=== PATIENT | male | born 1935 | race Caucasian/White ===

== ENCOUNTER 2017-07-02 23:17 | Emergency (ER) | payer MEDICARE ==
[2017-07-02 23:29] VITALS: RESP 18
[2017-07-03] MEDS ORDERED: DIPH,PERTUS(ACELL)TETVAC-LF 0.5 ML VIAL IM ONE (00:03)
--- NOTE | 2017-07-03 00:03 | ED ---
Fall HPI - General Chief Complaint: Fall Stated Complaint: fall Time Seen by Provider: 07/02/17 23:37 Source: patient, EMS Mode of arrival: EMS Limitations: physical limitation (Appears intoxicated) - History of Present Illness Initial Comments: This patient is an 82-year-old man, brought by ambulance to be evaluated after he had a fall. The patient admits to drinking about 10 beers today. He states that he is not sure exactly what happened but he had a falling and striking left side of his head. Patient's neighbor then called the ambulance as well as patient's daughter. Is alert and is denying any injuries other than to his head. He states he has a little bit of headache but he denies pains anywhere else. 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: no Place Fall Occurred: home Loss of Consciousness: unsure Prolonged Down Time?: no Context: alcohol use - Related Data Home Medications Medication Instructions Recorded Confirmed Ascorbic Acid [Vitamin C] 500 mg PO DAILY@1200 04/16/14 12/31/15 Aspirin 325 mg PO DAILY 04/16/14 12/31/15 Cholecalciferol [Vitamin D3] 1,000 unit PO DAILY@1200 04/16/14 12/31/15 Citalopram Hydrobromide [CeleXA] 20 mg PO DAILY 04/16/14 12/31/15 Fenofibrate Nanocrystallized 145 mg PO DAILY 04/16/14 12/31/15 [Tricor] Lisinopril [Zestril] 10 mg PO DAILY 04/16/14 12/31/15 Loratadine [Claritin] 10 mg PO DAILY 04/16/14 12/31/15 Thiamine HCl [Vitamin B-1] 100 mg PO DAILY 04/16/14 12/31/15 Previous Rx's Medication Instructions Recorded Docusate [Colace] 100 mg PO BID #28 capsule 01/02/16 Enoxaparin [Lovenox] 40 mg SQ DAILY 28 Days syringe 01/02/16 HYDROcodone/APAP 5-325MG [Bartley 1 tab PO Q4HR PRN #40 tab 01/02/16 5-325] Budesonide-Formot 160-4.5 Mcg 2 puff INHALATION BID #1 inhaler 01/06/16 [Symbicort 160-4.5 Mcg Inhaler] Ipratropium-Albuterol Nebulize 3 ml INHALATION RT-QID ampul.neb 01/06/16 [Duoneb 0.5 mg-3 mg/3 ml Soln] Metoprolol Tartrate [Lopressor] 12.5 mg PO BID tab 01/06/16 Nicotine 21Mg/24Hr Patch [Habitrol] 1 patch TRANSDERM DAILY patch 01/06/16 Allergies Allergy/AdvReac Type Severity Reaction Status Date / Time No Known Allergies Allergy Verified 12/31/15 16:10 Review of Systems ROS Statement: Those systems with pertinent positive or pertinent negative responses have been documented in the HPI. ROS Other: All systems not noted in ROS Statement are negative. Limitations: ROS unobtainable due to patients medical condition (Appears intoxicated) Eyes: Denies: vision change Respiratory: Denies: cough, dyspnea Cardiovascular: Denies: chest pain Gastrointestinal: Denies: abdominal pain, vomiting Musculoskeletal: Denies: back pain Neurological: Reports: headache. Denies: weakness, numbness Past Medical History Past Medical History: CVA/TIA, Hyperlipidemia, Hypertension History of Any Multi-Drug Resistant Organisms: None Reported Past Surgical History: Hernia Repair, Orthopedic Surgery Additional Past Surgical History / Comment(s): SHOULDER LEFT 25 YEARS AGO Past Anesthesia/Blood Transfusion Reactions: No Reported Reaction Past Psychological History: No Psychological Hx Reported Smoking Status: Current every day smoker Past Alcohol Use History: Daily Past Drug Use History: None Reported - Past Family History Mother Family Medical History: Hypertension General Exam Limitations: no limitations General appearance: alert, appears intoxicated Head exam: Present: normocephalic, other (Left frontal area hematoma with some abrasion overlying. No obvious bony deformity. Mild localized tenderness.) Eye exam: Present: normal appearance, PERRL, EOMI, nystagmus. Absent: scleral icterus, conjunctival injection ENT exam: Present: mucous membranes dry Neck exam: Present: normal inspection, other (Cervical collar). Absent: tenderness Respiratory exam: Present: normal lung sounds bilaterally. Absent: respiratory distress, wheezes, rales, rhonchi, stridor Cardiovascular Exam: Present: regular rate, normal rhythm, normal heart sounds. Absent: systolic murmur, diastolic murmur, rubs, gallop GI/Abdominal exam: Present: soft. Absent: distended, tenderness, guarding, rebound, mass Extremities exam: Present: normal inspection, full ROM, normal capillary refill. Absent: tenderness Back exam: Present: normal inspection. Absent: CVA tenderness (R), CVA tenderness (L) Neurological exam: Present: alert Skin exam: Present: warm, dry, intact, normal color. Absent: rash Course Vital Signs 07/02/17 23:19 Temperature 96.3 F L Pulse Rate 79 Respiratory 18 Rate Blood Pressure 166/74 O2 Sat by Pulse 92 L Oximetry Medical Decision Making - EKG Data -: EKG Interpreted by Tx EKG shows normal: sinus rhythm, axis (Normal), intervals (Normal), QRS complexes (Low-voltage QRS), ST-T waves (Normal) Rate: normal (78 bpm) Disposition Clinical Impression: Fall, Head injury, Alcohol intoxication Disposition: HOME SELF-CARE Condition: Fair Instructions: Fall Prevention for Older Adults (ED), Head Injury (ED), Alcohol Intoxication (ED) Referrals: Contreras Roberts DO [Primary Care Provider] - 1-2 days
--- NOTE | 2017-07-03 00:36 | CT ---
EXAMINATION TYPE: CT brain zamzam berman DATE OF EXAM: 07/03/2017 COMPARISON: NONE HISTORY: Fall CT DLP: 1562.30 mGycm Automated exposure control for dose reduction was used. TECHNIQUE: CT scan of the head and cervical spine are performed without contrast. FINDINGS: There is a large left frontal scalp hematoma that measures up to 1.7 cm in thickness. There is cerebral cortical atrophy. There is no mass effect nor midline shift. There is no sign of in tracranial hemorrhage. There is patchy hypodensity in the periventricular white matter. There is no e vidence of a skull fracture. Cervical vertebra have normal alignment. There is narrowing of disc spaces from C3 to C7 with spurrin g of the endplates. Facet joints are intact. There is hypertrophic multilevel facet arthropathy. The skull base is intact. There is no evidence of a fracture. IMPRESSION: Large left frontal scalp hematoma. Cerebral atrophy and chronic small vessel ischemia. No acute intra cranial abnormality. Spondylotic changes in the cervical spine. 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 No acute frac ture seen. Pulmonary emphysema noted at the lung apices.
[2017-07-03 02:14] VITALS: BP 163/80; PULSE 76; TEMP 97.4
== END 2017-07-03 02:28 | disposition home or self-care (01) ==
LOC: EC 23:17
DX: S00.83XA Contusion of other part of head, initial encounter (principal); F10.129 Alcohol abuse with intoxication, unspecified; E78.5 Hyperlipidemia, unspecified; I10 Essential (primary) hypertension; F17.200 Nicotine dependence, unspecified, uncomplicated; Z23 Encounter for immunization; Z86.73 Personal history of transient ischemic attack (TIA), and cerebral infarction without residual deficits; Z79.82 Long term (current) use of aspirin; Z79.899 Other long term (current) drug therapy; W18.30XA Fall on same level, unspecified, initial encounter; Y92.009 Unspecified place in unspecified non-institutional (private) residence as the place of occurrence of the external cause
CPT/HCPCS: 70450; 72125; 90471; 90715; 93005; 99284

== ENCOUNTER 2017-11-01 12:05 | Inpatient (IN) | payer MEDICARE ==
[2017-11-01] MEDS ORDERED: SODIUM CHLORIDE 0.9% 2,000 ML IV ONE (12:21)
[2017-11-01] MEDS ORDERED: SODIUM CHLORIDE 0.9% 1,000 ML IV STA (12:21)
[2017-11-01] MEDS ORDERED: DIPH,PERTUS(ACELL)TETVAC-LF 0.5 ML VIAL IM ONE (12:21)
--- NOTE | 2017-11-01 12:28 | ED ---
General Adult HPI - General Stated complaint: Fall Time Seen by Provider: 11/01/17 12:05 Source: patient, EMS, RN notes reviewed, old records reviewed Mode of arrival: EMS - History of Present Illness Initial comments: This is a 82-year-old male history of CVA alcoholism who apparently became weak 2 days ago and follow for cannot get up. He was found lying on the floor on his left side. Is brought in by EMS for evaluation. Patient was C-collared he denies nausea vomiting cough or phlegm production. He is found to have multiple pressure sores by paramedics IV was established. He was transported here. - Related Data Home Medications Medication Instructions Recorded Confirmed Ascorbic Acid [Vitamin C] 500 mg PO DAILY@1200 04/16/14 11/01/17 Cholecalciferol [Vitamin D3] 1,000 unit PO DAILY@1200 04/16/14 11/01/17 Citalopram Hydrobromide [CeleXA] 30 mg PO DAILY 04/16/14 11/01/17 Fenofibrate Nanocrystallized 145 mg PO DAILY 04/16/14 11/01/17 [Tricor] Lisinopril [Zestril] 10 mg PO DAILY 04/16/14 11/01/17 Thiamine HCl [Vitamin B-1] 100 mg PO DAILY 04/16/14 11/01/17 Aspirin EC [Ecotrin Low Dose] 81 mg PO DAILY 11/01/17 11/01/17 Allergies Allergy/AdvReac Type Severity Reaction Status Date / Time No Known Allergies Allergy Verified 12/31/15 16:10 Review of Systems ROS Statement: Those systems with pertinent positive or pertinent negative responses have been documented in the HPI. ROS Other: All systems not noted in ROS Statement are negative. Past Medical History Past Medical History: CVA/TIA, Hyperlipidemia, Hypertension History of Any Multi-Drug Resistant Organisms: None Reported Past Surgical History: Hernia Repair, Orthopedic Surgery Additional Past Surgical History / Comment(s): SHOULDER LEFT 25 YEARS AGO Past Anesthesia/Blood Transfusion Reactions: No Reported Reaction Past Psychological History: No Psychological Hx Reported Smoking Status: Current every day smoker Past Alcohol Use History: Daily Past Drug Use History: None Reported - Past Family History Mother Family Medical History: Hypertension General Exam - General Exam Comments Initial Comments: This is a well-developed sec appearing male who is awake alert but lethargic. He does have a cervical collar on. He seems a have a [place] Coma Scale of 15 Limitations: physical limitation General appearance: alert, lethargic Head exam: Present: normocephalic, other (Pressure sores seen to the left cheek and facial area with left periorbital edema) Eye exam: Present: PERRL, EOMI ENT exam: Present: mucous membranes dry Neck exam: Present: normal inspection, other (Cervical collar in place no overt tenderness palpation of the spinous processes.) Respiratory exam: Present: decreased breath sounds Cardiovascular Exam: Present: normal rhythm, tachycardia, normal heart sounds. Absent: systolic murmur, diastolic murmur, rubs, gallop, clicks GI/Abdominal exam: Present: soft. Absent: tenderness Rectal exam: Present: deferred Extremities exam: Present: full ROM, normal capillary refill Back exam: Present: normal inspection Neurological exam: Present: alert, CN II-XII intact Psychiatric exam: Present: flat affect Skin exam: Present: warm, dry, other (Multiple pressure sores noted to the left face left shoulder left anterior chest and lower chest. Left dorsal wrist and forearm left knee and left anterior lateral leg with some small amount seen on the right knee. Some eschar formation is noted.) Course Vital Signs 11/01/17 11/01/17 11/01/17 12:05 13:00 14:00 Temperature 97.1 F L Pulse Rate 105 H 105 H 95 Respiratory 18 18 18 Rate Blood Pressure 140/76 136/76 138/75 O2 Sat by Pulse 100 98 98 Oximetry 11/01/17 14:32 Temperature Pulse Rate 97 Respiratory 18 Rate Blood Pressure 128/82 O2 Sat by Pulse 98 Oximetry - Reevaluation(s) Reevaluation #1: 11/01/17 15:49 Patient continues rest comfortably I did discuss findings with him and his family member. EKG Findings - EKG Results: EKG: interpreted by [facility], sinus rhythm (Sinus rhythm rate 99. Interval 136 QRS 90 QT since QTC 374/479 low-voltage poor R-wave progression) Medical Decision Making - Medical Decision Making I did discuss findings with the patient family members as well as with Dr. Jaquez. Patient is a patient Dr. Roberts. Patient will be admitted IV hydration and inpatient evaluation. Patient has a known history of smoking and alcohol abuse he will be placed on the protocol. - Lab Data Result diagrams: 11/01/17 13:40 11/01/17 13:40 Lab Results 11/01/17 11/01/17 11/01/17 Range/Units 13:40 13:40 13:40 WBC (3.8-10.6) k/uL RBC (4.30-5.90) m/uL Hgb (13.0-17.5) gm/dL Hct (39.0-53.0) % MCV (80.0-100.0) fL MCH (25.0-35.0) pg MCHC (31.0-37.0) g/dL RDW (11.5-15.5) % Plt Count (150-450) k/uL Neutrophils % % Lymphocytes % % Monocytes % % Eosinophils % % Basophils % % Neutrophils # (1.3-7.7) k/uL Lymphocytes # (1.0-4.8) k/uL Monocytes # (0-1.0) k/uL Eosinophils # (0-0.7) k/uL Basophils # (0-0.2) k/uL Sodium 142 (137-145) mmol/L Potassium 4.3 (3.5-5.1) mmol/L Chloride 111 H (98-107) mmol/L Carbon Dioxide 23 (22-30) mmol/L Anion Gap 8 mmol/L BUN 50 H (9-20) mg/dL Creatinine 1.75 H (0.66-1.25) mg/dL Est GFR (CKD-EPI)AfAm 41 (>60 ml/min/1.73 sqM) Est GFR (CKD-EPI)NonAf 36 (>60 ml/min/1.73 sqM) Glucose 133 H (74-99) mg/dL POC Glucose (mg/dL) (75-99) mg/dL POC Glu Nematology Teacher ID Plasma Lactic Acid [place] 2.0 (0.7-2.0) mmol/L Calcium 9.8 (8.4-10.2) mg/dL Magnesium 2.4 H (1.6-2.3) mg/dL Total Bilirubin 1.4 H (0.2-1.3) mg/dL AST 98 H (17-59) U/L ALT 51 (21-72) U/L Alkaline Phosphatase 71 (38-126) U/L Ammonia 23 (<30) umol/L Total Creatine Kinase 1323 H (55-170) U/L CK-MB (CK-2) 7.6 H* (0.0-2.4) ng/mL CK-MB (CK-2) Rel Index 0.6 Troponin I 0.141 H* (0.000-0.034) ng/mL Total Protein 6.5 (6.3-8.2) g/dL Albumin 3.8 (3.5-5.0) g/dL Lipase 37 (23-300) U/L Urine Color Urine Appearance (Clear) Urine pH (5.0-8.0) Ur Specific [place] (1.001-1.035) Urine Protein (Negative) Urine Glucose (UA) (Negative) Urine Ketones (Negative) Urine Blood (Negative) Urine Nitrite (Negative) Urine Bilirubin (Negative) Urine Urobilinogen (<2.0) mg/dL Ur Leukocyte Esterase (Negative) Urine RBC (0-5) /hpf Urine WBC (0-5) /hpf Ur Squamous Epith Cells (0-4) /hpf Hyaline Casts (0-2) /lpf Urine Mucus (None) /hpf Serum Alcohol <10 mg/dL 11/01/17 11/01/17 11/01/17 Range/Units 13:40 14:59 15:10 WBC 12.5 H (3.8-10.6) k/uL RBC 5.37 (4.30-5.90) m/uL Hgb 16.3 (13.0-17.5) gm/dL Hct 50.2 (39.0-53.0) % MCV 93.5 (80.0-100.0) fL MCH 30.3 (25.0-35.0) pg MCHC 32.4 (31.0-37.0) g/dL RDW 13.6 (11.5-15.5) % Plt Count 401 (150-450) k/uL Neutrophils % 82 % Lymphocytes % 7 % Monocytes % 9 % Eosinophils % 0 % Basophils % 0 % Neutrophils # 10.2 H (1.3-7.7) k/uL Lymphocytes # 0.9 L (1.0-4.8) k/uL Monocytes # 1.1 H (0-1.0) k/uL Eosinophils # 0.0 (0-0.7) k/uL Basophils # 0.0 (0-0.2) k/uL Sodium (137-145) mmol/L Potassium (3.5-5.1) mmol/L Chloride (98-107) mmol/L Carbon Dioxide (22-30) mmol/L Anion Gap mmol/L BUN (9-20) mg/dL Creatinine (0.66-1.25) mg/dL Est GFR (CKD-EPI)AfAm (>60 ml/min/1.73 sqM) Est GFR (CKD-EPI)NonAf (>60 ml/min/1.73 sqM) Glucose (74-99) mg/dL POC Glucose (mg/dL) 135 H (75-99) mg/dL POC Glu Nematology Teacher ID [place] Plasma Lactic Acid [place] (0.7-2.0) mmol/L Calcium (8.4-10.2) mg/dL Magnesium (1.6-2.3) mg/dL Total Bilirubin (0.2-1.3) mg/dL AST (17-59) U/L ALT (21-72) U/L Alkaline Phosphatase (38-126) U/L Ammonia (<30) umol/L Total Creatine Kinase (55-170) U/L CK-MB (CK-2) (0.0-2.4) ng/mL CK-MB (CK-2) Rel Index Troponin I (0.000-0.034) ng/mL Total Protein (6.3-8.2) g/dL Albumin (3.5-5.0) g/dL Lipase (23-300) U/L Urine Color [place] Urine Appearance Cloudy (Clear) Urine pH 5.5 (5.0-8.0) Ur Specific [place] 1.020 (1.001-1.035) Urine Protein 1+ H (Negative) Urine Glucose (UA) Negative (Negative) Urine Ketones Negative (Negative) Urine Blood Negative (Negative) Urine Nitrite Negative (Negative) Urine Bilirubin 1+ H (Negative) Urine Urobilinogen 2.0 (<2.0) mg/dL Ur Leukocyte Esterase Negative (Negative) Urine RBC <1 (0-5) /hpf Urine WBC 2 (0-5) /hpf Ur Squamous Epith Cells 1 (0-4) /hpf Hyaline Casts 35 H (0-2) /lpf Urine Mucus Moderate H (None) /hpf Serum Alcohol mg/dL - Radiology Data Radiology results: report reviewed (I did review the imaging and report no acute findings are seen.), image reviewed Critical Care Time Critical Care Time: Yes Critical Care Time: 34 minutes of critical care time which includes initial presentation monitoring the EMS run and discussed with paramedics labs x-rays. Multiple re-evaluations of the patient. Discussion with the family discuss with the main physician documentation above and admission orders Disposition Clinical Impression: Fall, History of ETOH abuse, Rhabdomyolysis, Renal insufficiency, Dehydration, Failure to thrive, Smoking, Elevated troponin Disposition: ADMITTED IP TO THIS HOSP Condition: Serious Referrals: Contreras Roberts DO [Primary Care Provider] - 1-2 days
[2017-11-01 14:14] LABS: Basophils % (A) 0 %; Eosinophils % (A) 0 %; HCT 50.2 % (39.0-53.0); HGB 16.3 gm/dL (13.0-17.5); Lymphocytes # (A) 0.9 k/uL (1.0-4.8); Lymphocytes % (A) 7 %; MCH 30.3 pg (25.0-35.0); MCHC 32.4 g/dL (31.0-37.0); MCV 93.5 fL (80.0-100.0); Mean Platelet Volume 7.4; Monocytes # (A) 1.1 k/uL (0-1.0); Monocytes % (A) 9 %; Neutrophils # (A) 10.2 k/uL (1.3-7.7); Neutrophils % (A) 82 %; Platelet Count 401 k/uL (150-450); RBC 5.37 m/uL (4.30-5.90); RDW 13.6 % (11.5-15.5); WBC 12.5 k/uL (3.8-10.6)
--- NOTE | 2017-11-01 14:16 | CT ---
EXAMINATION TYPE: CT brain cspine wo con DATE OF EXAM: 11/01/2017 COMPARISON: CT brain and cervical spine July 02, 2017. HISTORY: Pt fell on Monday found today on the floor /abrasions to lt cheek area. Neck pain. CT DLP: 1429.3 mGycm. Automated Exposure Control for Dose Reduction was Utilized. TECHNIQUE: CT scan of the head and cervical spine are performed without contrast. FINDINGS: There is no acute intracranial hemorrhage or midline shift identified. There is ventricul ar and sulcal prominence consistent with diffuse cerebral atrophy. There is focal and confluent areas of T2 hyperintensity seen throughout the deep and periventricular white matter bilaterally. There is minimal residual left frontal scalp hematoma or scar axial image 41. There is new small right pariet al acute scalp hematoma axial image 45. The calvarium is intact. The globes are intact and the visual ized sinuses are clear. Cervical spine is visualized in its entirety from C1 through upper thoracic levels and demonstrates s table and somewhat straightened alignment without evidence of acute fracture or dislocation. Stable n onunited fracture of C7 spinous process sagittal image 36 noted. Prevertebral soft tissue appears wit hin normal limits. The C1-C2 articulation is within normal limits on the coronal images. Vertebral body heights are maintained. Moderate multilevel disc space narrowing C3-C4 through C6-C7 l evels is redemonstrated. Posterior spurring effaces anterior thecal sac at C6-C7 level similar prior. Review of axial images shows multilevel uncovertebral facet degenerative changes contributing to mul tilevel neural foraminal narrowing most prominent left C3-C4 level similar to prior. There is motion artifact degradation is seen. There is moderate to severe calcified plaque at bilateral carotid bulbs . There is at least moderate underlying emphysematous change with moderate biapical pleural/parenchym al scarring redemonstrated. IMPRESSION: 1. There is no acute fracture or dislocation evident in the cervical spine. No significant change fro m prior CT. 2. No acute intracranial hemorrhage or midline shift is seen currently. Background moderate diffuse c erebral atrophy and advanced chronic small vessel ischemic change redemonstrated. New small right acu te parietal scalp hematoma noted.
[2017-11-01 14:22] LABS: ALT 51 U/L (21-72); AST 98 U/L (17-59); Albumin 3.8 g/dL (3.5-5.0); Alcohol <10 mg/dL; Alkaline Phosphatase 71 U/L (38-126); Anion Gap 8 mmol/L; Blood Urea Nitrogen 50 mg/dL (9-20); Calcium 9.8 mg/dL (8.4-10.2); Carbon Dioxide 23 mmol/L (22-30); Chloride 111 mmol/L (98-107); Glucose 133 mg/dL (74-99); Lipase 37 U/L (23-300); Magnesium 2.4 mg/dL (1.6-2.3); Potassium 4.3 mmol/L (3.5-5.1); Sodium 142 mmol/L (137-145); Total Bilirubin 1.4 mg/dL (0.2-1.3); Total Protein 6.5 g/dL (6.3-8.2)
[2017-11-01 14:44] LABS: Creatine Kinase MB 7.6 ng/mL (0.0-2.4)
[2017-11-01 14:45] LABS: Troponin I 0.141 ng/mL (0.000-0.034)
--- NOTE | 2017-11-01 15:07 | XR ---
EXAMINATION TYPE: XR chest 1V portable DATE OF EXAM: 11/01/2017 COMPARISON: Prior chest x-ray 01/05/2016 HISTORY: Pain, weakness and fall, trauma TECHNIQUE: Single frontal view of the chest is obtained. FINDINGS: Posttraumatic changes are stable, postop change noted to the left humerus, old left clavic ular fracture, old right-sided rib fractures at the seventh and eighth ribs, likely ninth and 10th ri bs again noted, possibly left eighth and ninth ribs show prior fracture. There are overlying cardiac leads. No evident pneumothorax or pleural effusion. Cardiac mediastinal silhouette, pulmonary vascula rity and ruba are stable. IMPRESSION: Evidence of remote trauma. No acute abnormality.
[2017-11-01 15:14] LABS: Glucose,Whole Blood 135 mg/dL (75-99)
[2017-11-01 15:36] LABS: Appearance,Urine Cloudy (Clear); Bilirubin,Urine 1+ (Negative); Blood,Urine Negative (Negative); Color,Urine Orange; Glucose,Urine (UA) Negative (Negative); Hyaline Casts,Urine 35 /lpf (0-2); Ketones,Urine Negative (Negative); Leukocyte Esterase,Urine Negative (Negative); Mucus,Urine Moderate /hpf; Nitrite,Urine Negative (Negative); PH, Urine 5.5 (5.0-8.0); Protein,Urine 1+ (Negative); RBC,Urine <1 /hpf (0-5); Squamous Epithelial Cell,Urine 1 /hpf (0-4); WBC,Urine 2 /hpf (0-5)
[2017-11-01] MEDS ORDERED: ONDANSETRON 4 MG/2 ML VIAL IVP PRN (15:53)
[2017-11-01] MEDS ORDERED: NALOXONE 0.4 MG/ML 1 ML VIAL IV PRN (15:53)
--- NOTE | 2017-11-01 15:53 | ED ---
Medical Decision Making - Lab Data Result diagrams: 11/01/17 13:40 11/01/17 13:40 Lab Results 11/01/17 11/01/17 11/01/17 Range/Units 13:40 13:40 13:40 WBC (3.8-10.6) k/uL RBC (4.30-5.90) m/uL Hgb (13.0-17.5) gm/dL Hct (39.0-53.0) % MCV (80.0-100.0) fL MCH (25.0-35.0) pg MCHC (31.0-37.0) g/dL RDW (11.5-15.5) % Plt Count (150-450) k/uL Neutrophils % % Lymphocytes % % Monocytes % % Eosinophils % % Basophils % % Neutrophils # (1.3-7.7) k/uL Lymphocytes # (1.0-4.8) k/uL Monocytes # (0-1.0) k/uL Eosinophils # (0-0.7) k/uL Basophils # (0-0.2) k/uL Sodium 142 (137-145) mmol/L Potassium 4.3 (3.5-5.1) mmol/L Chloride 111 H (98-107) mmol/L Carbon Dioxide 23 (22-30) mmol/L Anion Gap 8 mmol/L BUN 50 H (9-20) mg/dL Creatinine 1.75 H (0.66-1.25) mg/dL Est GFR (CKD-EPI)AfAm 41 (>60 ml/min/1.73 sqM) Est GFR (CKD-EPI)NonAf 36 (>60 ml/min/1.73 sqM) Glucose 133 H (74-99) mg/dL POC Glucose (mg/dL) (75-99) mg/dL POC Glu Ukrainian Folk Arts Instructor ID Plasma Lactic Acid [place] 2.0 (0.7-2.0) mmol/L Calcium 9.8 (8.4-10.2) mg/dL Magnesium 2.4 H (1.6-2.3) mg/dL Total Bilirubin 1.4 H (0.2-1.3) mg/dL AST 98 H (17-59) U/L ALT 51 (21-72) U/L Alkaline Phosphatase 71 (38-126) U/L Ammonia 23 (<30) umol/L Total Creatine Kinase 1323 H (55-170) U/L CK-MB (CK-2) 7.6 H* (0.0-2.4) ng/mL CK-MB (CK-2) Rel Index 0.6 Troponin I 0.141 H* (0.000-0.034) ng/mL Total Protein 6.5 (6.3-8.2) g/dL Albumin 3.8 (3.5-5.0) g/dL Lipase 37 (23-300) U/L Urine Color Urine Appearance (Clear) Urine pH (5.0-8.0) Ur Specific [place] (1.001-1.035) Urine Protein (Negative) Urine Glucose (UA) (Negative) Urine Ketones (Negative) Urine Blood (Negative) Urine Nitrite (Negative) Urine Bilirubin (Negative) Urine Urobilinogen (<2.0) mg/dL Ur Leukocyte Esterase (Negative) Urine RBC (0-5) /hpf Urine WBC (0-5) /hpf Ur Squamous Epith Cells (0-4) /hpf Hyaline Casts (0-2) /lpf Urine Mucus (None) /hpf Serum Alcohol <10 mg/dL 11/01/17 11/01/17 11/01/17 Range/Units 13:40 14:59 15:10 WBC 12.5 H (3.8-10.6) k/uL RBC 5.37 (4.30-5.90) m/uL Hgb 16.3 (13.0-17.5) gm/dL Hct 50.2 (39.0-53.0) % MCV 93.5 (80.0-100.0) fL MCH 30.3 (25.0-35.0) pg MCHC 32.4 (31.0-37.0) g/dL RDW 13.6 (11.5-15.5) % Plt Count 401 (150-450) k/uL Neutrophils % 82 % Lymphocytes % 7 % Monocytes % 9 % Eosinophils % 0 % Basophils % 0 % Neutrophils # 10.2 H (1.3-7.7) k/uL Lymphocytes # 0.9 L (1.0-4.8) k/uL Monocytes # 1.1 H (0-1.0) k/uL Eosinophils # 0.0 (0-0.7) k/uL Basophils # 0.0 (0-0.2) k/uL Sodium (137-145) mmol/L Potassium (3.5-5.1) mmol/L Chloride (98-107) mmol/L Carbon Dioxide (22-30) mmol/L Anion Gap mmol/L BUN (9-20) mg/dL Creatinine (0.66-1.25) mg/dL Est GFR (CKD-EPI)AfAm (>60 ml/min/1.73 sqM) Est GFR (CKD-EPI)NonAf (>60 ml/min/1.73 sqM) Glucose (74-99) mg/dL POC Glucose (mg/dL) 135 H (75-99) mg/dL POC Glu Ukrainian Folk [employer] Instructor ID [place] Plasma Lactic Acid [place] (0.7-2.0) mmol/L Calcium (8.4-10.2) mg/dL Magnesium (1.6-2.3) mg/dL Total Bilirubin (0.2-1.3) mg/dL AST (17-59) U/L ALT (21-72) U/L Alkaline Phosphatase (38-126) U/L Ammonia (<30) umol/L Total Creatine Kinase (55-170) U/L CK-MB (CK-2) (0.0-2.4) ng/mL CK-MB (CK-2) Rel Index Troponin I (0.000-0.034) ng/mL Total Protein (6.3-8.2) g/dL Albumin (3.5-5.0) g/dL Lipase (23-300) U/L Urine Color [place] Urine Appearance Cloudy (Clear) Urine pH 5.5 (5.0-8.0) Ur Specific [place] 1.020 (1.001-1.035) Urine Protein 1+ H (Negative) Urine Glucose (UA) Negative (Negative) Urine Ketones Negative (Negative) Urine Blood Negative (Negative) Urine Nitrite Negative (Negative) Urine Bilirubin 1+ H (Negative) Urine Urobilinogen 2.0 (<2.0) mg/dL Ur Leukocyte Esterase Negative (Negative) Urine RBC <1 (0-5) /hpf Urine WBC 2 (0-5) /hpf Ur Squamous Epith Cells 1 (0-4) /hpf Hyaline Casts 35 H (0-2) /lpf Urine Mucus Moderate H (None) /hpf Serum Alcohol mg/dL Disposition Clinical Impression: Fall, History of ETOH abuse, Rhabdomyolysis, Renal insufficiency, Dehydration, Failure to thrive, Smoking, Elevated troponin, Pressure sore Disposition: ADMITTED IP TO THIS HOSP Condition: Serious Referrals: Contreras Roberts DO [Primary Care Provider] - 1-2 days
[2017-11-01] MEDS ORDERED: LORazepam 2 MG/ML INJ IV PRN ×3 (15:58)
[2017-11-01] MEDS ORDERED: THIAMINE 100 MG/ML 2 ML VIAL IM STA (15:58)
[2017-11-01] MEDS: SODIUM CHLORIDE 0.9% 1,000 ML IV SCH (17:31)
[2017-11-01 19:28] LABS: Creatine Kinase MB 6.4 ng/mL (0.0-2.4)
[2017-11-01 19:29] LABS: Troponin I 0.113 ng/mL (0.000-0.034)
[2017-11-01] MEDS: HEPARIN SODIUM,PORCINE 5,000 UNIT/ML 1 ML VIAL SQ SCH (21:15)
[2017-11-02 02:40] LABS: Troponin I 0.089 ng/mL (0.000-0.034)
[2017-11-02] MEDS: SODIUM CHLORIDE 0.9% 1,000 ML IV SCH ×3 (06:35→11:17)
[2017-11-02] MEDS ORDERED: LISINOPRIL 10 MG TAB PO SCH (09:00)
[2017-11-02] MEDS ORDERED: PANTOPRAZOLE 40 MG/10 ML VIAL IV SCH (09:00)
[2017-11-02] MEDS: FENOFIBRATE 160 MG TAB PO SCH (09:17)
[2017-11-02] MEDS: ASPIRIN 81 MG PO SCH (09:17)
[2017-11-02] MEDS: CITALOPRAM HYDROBROMIDE 10 MG TAB PO SCH (09:17)
[2017-11-02] MEDS: HEPARIN SODIUM,PORCINE 5,000 UNIT/ML 1 ML VIAL SQ SCH ×2 (09:18→20:22)
--- NOTE | 2017-11-02 10:38 | P.CONS ---
History of Present Illness - Reason for Consult Consult date: 11/02/17 Decubitus ulcers - History of Present Illness This is an 82-year-old male patient who currently lives alone. He apparently fell on Monday and was laying on the floor until yesterday. He states that he was feeling dizzy and fell. He drank 3 beers that day but according to his daughter he states he drinks up to a 12 pack a day and has been doing this for many years. Patient states that he was laying on his left side and his left hand and arm were underneath him and he was unable to move it out. Patient was transported by EMS to [facility] emergency center for evaluation. His ammonia level was 23, blood sugar in the 130s total bilirubin 1.4, AST 90, applying phosphatase and ALT within normal limits, CK was 1323. BUN 15 creatinine 1.75 white count was at 12. Troponin 0.141, 0.113 , 0.089. Alcohol level was less than 10. Urinalysis was orange with 1+ bilirubin. Chest x-ray shows no acute abnormality but multiple old fractures. CAT scan of the head and cervical spine showed no acute fracture or dislocation of the cervical spine. No acute intracranial hemorrhage or midline shift. Moderate diffuse cerebral atrophy and advanced chronic small vessel ischemic change. New right parietal scalp hematoma. Patient has been afebrile since admission. He is not on antibiotics. His tetanus status was updated in the emergency center. Patient presents with multiple abrasions and wounds to his left hoahaoism and cheek, left hand and wrist dorsal and palmar surfaces, multiple areas on his left chest and abdomen as well as left lower extremity. According to the patient's daughter patient has frequent falls although he will deny at. I discussed discharge planning with the patient and he is open to going to [facility] because he was there about 2 years ago after a hip fracture. Daughter is DURABLE POWER OF BREAKFAST HOST and family are hoping that they can make arrangements so he does not return home. He has received 3 L of IV fluid, thiamine and CIWA protocol in place. He does state that he has not been eating much due to lack of appetite and has lost 15 lbs over the past couple months. He denies any nausea, vomiting, diarrhea. He denies chest pain , shortness of breath. He has a chronic productive cough. Review of Systems All systems: negative Constitutional: Reports poor appetite, Reports weakness, Reports weight loss, Denies chills, Denies fever, Denies night sweats Eyes: denies blurred vision, denies pain Ears, nose, mouth and throat: Reports vertigo, Denies dental pain, Denies headache, Denies mouth pain, Denies sore throat Cardiovascular: Reports lightheadedness, Denies chest pain, Denies leg edema, Denies shortness of breath, Denies syncope Respiratory: Reports cough, Reports cough with sputum, Denies dyspnea, Denies excessive sputum, Denies hemoptysis, Denies home oxygen, Denies wheezing Gastrointestinal: Reports loss of appetite, Denies abdominal pain, Denies diarrhea, Denies nausea, Denies vomiting Genitourinary: Denies dysuria, Denies hematuria Musculoskeletal: Reports frequent falls, Reports gait dysfunction, Denies myalgias Integumentary: Reports onychomycosis, Reports wounds, Denies pruritus, Denies rash Neurological: Denies numbness, Denies weakness Psychiatric: Denies anxiety, Denies depression Endocrine: Denies fatigue, Denies weight change Past Medical History Past Medical History: CVA/TIA, Hyperlipidemia, Hypertension, Osteoarthritis (OA) Additional Past Medical History / Comment(s): tia, alcoholic, freq falls. past lt humeral/lt femoral fx, kidney stone 40 plus years ago. at times tremors, irreg sleep apttern History of Any Multi-Drug Resistant Organisms: None Reported Past Surgical History: Hernia Repair, Orthopedic Surgery Additional Past Surgical History / Comment(s): SHOULDER LEFT 25 YEARS AGO, lt hip hemiarthroplasty Past Anesthesia/Blood Transfusion Reactions: No Reported Reaction Smoking Status: Current every day smoker Additional Past Alcohol Use History / Comment(s): Patient is a smoker of 3 packs per day since he was 13 years of age. He is drinking a 12 pack of beer per day for a long period of time. He is currently living alone. 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 - Past Family History Mother Family Medical History: Hypertension Father Additional Family Medical History / Comment(s): in [facility] when pt was 11 years old Medications and Allergies Home Medications Medication Instructions Recorded Confirmed Type Ascorbic Acid [Vitamin C] 500 mg PO DAILY@1200 04/16/14 11/01/17 History Cholecalciferol [Vitamin D3] 1,000 unit PO DAILY@1200 04/16/14 11/01/17 History Citalopram Hydrobromide [CeleXA] 30 mg PO DAILY 04/16/14 11/01/17 History Fenofibrate Nanocrystallized 145 mg PO DAILY 04/16/14 11/01/17 History [Tricor] Lisinopril [Zestril] 10 mg PO DAILY 04/16/14 11/01/17 History Thiamine HCl [Vitamin B-1] 100 mg PO DAILY 04/16/14 11/01/17 History Aspirin EC [Ecotrin Low Dose] 81 mg PO DAILY 11/01/17 11/01/17 History Allergies Allergy/AdvReac Type Severity Reaction Status Date / Time No Known Allergies Allergy Verified 12/31/15 16:10 Physical Exam Vitals: Vital Signs Temp Pulse Pulse Resp BP BP Pulse Ox 11/02/17 07:56 104 H 16 11/02/17 07:26 97.2 F L 104 H 16 143/86 94 L 11/02/17 04:30 98.5 F 100 17 145/72 96 11/02/17 04:10 88 17 11/02/17 00:15 98.3 F 98 17 142/76 95 11/01/17 20:15 98.0 F 101 H 17 152/88 94 L 11/01/17 16:47 97.5 F L 93 18 154/89 93 L 11/01/17 14:32 97 18 128/82 98 11/01/17 14:00 95 18 138/75 98 11/01/17 13:00 105 H 18 136/76 98 11/01/17 12:05 97.1 F L 105 H 18 140/76 100 Intake and Output 11/01/17 11/02/17 11/02/17 22:59 06:59 14:59 Intake Total 510 Balance 510 Intake: Intake, IV Titration 150 Amount Sodium Chloride 0.9% 1, 150 000 ml @ 150 mls/hr IV . Q6H40M [facility] [place] Rx#:[id number] Oral 360 Other: Voiding Method Diaper Diaper Urinal Incontinent Incontinent Diaper Incontinent # Voids 4 Weight 56 kg Gen: This is an 82-year-old. Patient is in bed and appears to be comfortable and in no acute distress. Patient does have pain with minimal movement secondary to significant wounds. HEENT: Head is normocephalic. Ulcer to the left hoahaoism and left cheek with serous drainage. Pupils equal, round. Sclerae is anicteric. Conjunctiva somewhat pale. Mucous members of the mouth are moist. Dentures in place on the upper. No lesions noted. NECK: Supple. No JVD. No lymphadenopathy. No thyromegaly. LUNGS: Clear to auscultation. No wheezes or rhonchi. No intercostal retractions. HEART: Regular rate and rhythm. No murmur. ABDOMEN: Soft. Bowel sounds are present. No masses. No tenderness. EXTREMITIES: No pedal edema. No calf tenderness. Dorsalis pedis +1 bilaterally. Onychomycosis noted bilaterally. SKIN: There are multiple decubitus ulcers on the left chest wall and left abdomen with surrounding erythema and edema. Large hematoma to the left hand with significant edema to the wrist and hand. Decubitus ulcer to the left lateral knee. All wounds have surrounding erythema. NEUROLOGICAL: Patient is awake, alert and oriented x3. Cranial nerves 2 through 12 are grossly intact. Results Results: Laboratory Results WBC 12.5 k/uL (3.8-10.6) H 11/01/17 13:40 RBC 5.37 m/uL (4.30-5.90) 11/01/17 13:40 Hgb 16.3 gm/dL (13.0-17.5) 11/01/17 13:40 Hct 50.2 % (39.0-53.0) 11/01/17 13:40 MCV 93.5 fL (80.0-100.0) 11/01/17 13:40 MCH 30.3 pg (25.0-35.0) 11/01/17 13:40 MCHC 32.4 g/dL (31.0-37.0) 11/01/17 13:40 RDW 13.6 % (11.5-15.5) 11/01/17 13:40 Plt Count 401 k/uL (150-450) 11/01/17 13:40 Neutrophils % 82 % 11/01/17 13:40 Lymphocytes % 7 % 11/01/17 13:40 Monocytes % 9 % 11/01/17 13:40 Eosinophils % 0 % 11/01/17 13:40 Basophils % 0 % 11/01/17 13:40 Neutrophils # 10.2 k/uL (1.3-7.7) H 11/01/17 13:40 Lymphocytes # 0.9 k/uL (1.0-4.8) L 11/01/17 13:40 Monocytes # 1.1 k/uL (0-1.0) H 11/01/17 13:40 Eosinophils # 0.0 k/uL (0-0.7) 11/01/17 13:40 Basophils # 0.0 k/uL (0-0.2) 11/01/17 13:40 Sodium 142 mmol/L (137-145) 11/01/17 13:40 Potassium 4.3 mmol/L (3.5-5.1) 11/01/17 13:40 Chloride 111 mmol/L (98-107) H 11/01/17 13:40 Carbon Dioxide 23 mmol/L (22-30) 11/01/17 13:40 Anion Gap 8 mmol/L 11/01/17 13:40 BUN 50 mg/dL (9-20) H 11/01/17 13:40 Creatinine 1.75 mg/dL (0.66-1.25) H 11/01/17 13:40 Est GFR (CKD-EPI)AfAm 41 (>60 ml/min/1.73 sqM) 11/01/17 13:40 Est GFR (CKD-EPI)NonAf 36 (>60 ml/min/1.73 sqM) 11/01/17 13:40 Glucose 133 mg/dL (74-99) H 11/01/17 13:40 POC Glucose (mg/dL) 135 mg/dL (75-99) H 11/01/17 14:59 POC Glu Tack Maker MARISABEL Po De La Cruz 11/01/17 14:59 Plasma Lactic Acid [place] 2.0 mmol/L (0.7-2.0) 11/01/17 13:40 Calcium 9.8 mg/dL (8.4-10.2) 11/01/17 13:40 Magnesium 2.4 mg/dL (1.6-2.3) H 11/01/17 13:40 Total Bilirubin 1.4 mg/dL (0.2-1.3) H 11/01/17 13:40 AST 98 U/L (17-59) H 11/01/17 13:40 ALT 51 U/L (21-72) 11/01/17 13:40 Alkaline Phosphatase 71 U/L (38-126) 11/01/17 13:40 Ammonia 23 umol/L (<30) 11/01/17 13:40 Total Creatine Kinase 695 U/L (55-170) H 11/02/17 01:42 CK-MB (CK-2) 4.0 ng/mL (0.0-2.4) H* 11/02/17 01:42 CK-MB (CK-2) Rel Index 0.6 11/02/17 01:42 Troponin I 0.089 ng/mL (0.000-0.034) H* 11/02/17 01:42 Total Protein 6.5 g/dL (6.3-8.2) 11/01/17 13:40 Albumin 3.8 g/dL (3.5-5.0) 11/01/17 13:40 Lipase 37 U/L (23-300) 11/01/17 13:40 Urine Color Lyman 11/01/17 15:10 Urine Appearance Cloudy (Clear) 11/01/17 15:10 Urine pH 5.5 (5.0-8.0) 11/01/17 15:10 Ur Specific [place] 1.020 (1.001-1.035) 11/01/17 15:10 Urine Protein 1+ (Negative) H 11/01/17 15:10 Urine Glucose (UA) Negative (Negative) 11/01/17 15:10 Urine Ketones Negative (Negative) 11/01/17 15:10 Urine Blood Negative (Negative) 11/01/17 15:10 Urine Nitrite Negative (Negative) 11/01/17 15:10 Urine Bilirubin 1+ (Negative) H 11/01/17 15:10 Urine Urobilinogen 2.0 mg/dL (<2.0) 11/01/17 15:10 Ur Leukocyte Esterase Negative (Negative) 11/01/17 15:10 Urine RBC <1 /hpf (0-5) 11/01/17 15:10 Urine WBC 2 /hpf (0-5) 11/01/17 15:10 Ur Squamous Epith Cells 1 /hpf (0-4) 11/01/17 15:10 Hyaline Casts 35 /lpf (0-2) H 11/01/17 15:10 Urine Mucus Moderate /hpf (None) H 11/01/17 15:10 Serum Alcohol <10 mg/dL 11/01/17 13:40 CBC & Chem 7: 11/01/17 13:40 11/01/17 13:40 Labs: Abnormal Lab Results - Last 24 Hours (Table) 11/01/17 11/01/17 11/01/17 Range/Units 13:40 13:40 13:40 WBC 12.5 H (3.8-10.6) k/uL Neutrophils # 10.2 H (1.3-7.7) k/uL Lymphocytes # 0.9 L (1.0-4.8) k/uL Monocytes # 1.1 H (0-1.0) k/uL Chloride 111 H (98-107) mmol/L BUN 50 H (9-20) mg/dL Creatinine 1.75 H (0.66-1.25) mg/dL Glucose 133 H (74-99) mg/dL POC Glucose (mg/dL) (75-99) mg/dL Magnesium 2.4 H (1.6-2.3) mg/dL Total Bilirubin 1.4 H (0.2-1.3) mg/dL AST 98 H (17-59) U/L Total Creatine Kinase 1323 H (55-170) U/L CK-MB (CK-2) 7.6 H* (0.0-2.4) ng/mL Troponin I 0.141 H* (0.000-0.034) ng/mL Urine Protein (Negative) Urine Bilirubin (Negative) Hyaline Casts (0-2) /lpf Urine Mucus (None) /hpf 11/01/17 11/01/17 11/01/17 Range/Units 14:59 15:10 18:08 WBC (3.8-10.6) k/uL Neutrophils # (1.3-7.7) k/uL Lymphocytes # (1.0-4.8) k/uL Monocytes # (0-1.0) k/uL Chloride (98-107) mmol/L BUN (9-20) mg/dL Creatinine (0.66-1.25) mg/dL Glucose (74-99) mg/dL POC Glucose (mg/dL) 135 H (75-99) mg/dL Magnesium (1.6-2.3) mg/dL Total Bilirubin (0.2-1.3) mg/dL AST (17-59) U/L Total Creatine Kinase 1170 H (55-170) U/L CK-MB (CK-2) 6.4 H* (0.0-2.4) ng/mL Troponin I 0.113 H* (0.000-0.034) ng/mL Urine Protein 1+ H (Negative) Urine Bilirubin 1+ H (Negative) Hyaline Casts 35 H (0-2) /lpf Urine Mucus Moderate H (None) /hpf 11/02/17 Range/Units 01:42 WBC (3.8-10.6) k/uL Neutrophils # (1.3-7.7) k/uL Lymphocytes # (1.0-4.8) k/uL Monocytes # (0-1.0) k/uL Chloride (98-107) mmol/L BUN (9-20) mg/dL Creatinine (0.66-1.25) mg/dL Glucose (74-99) mg/dL POC Glucose (mg/dL) (75-99) mg/dL Magnesium (1.6-2.3) mg/dL Total Bilirubin (0.2-1.3) mg/dL AST (17-59) U/L Total Creatine Kinase 695 H (55-170) U/L CK-MB (CK-2) 4.0 H* (0.0-2.4) ng/mL Troponin I 0.089 H* (0.000-0.034) ng/mL Urine Protein (Negative) Urine Bilirubin (Negative) Hyaline Casts (0-2) /lpf Urine Mucus (None) /hpf Assessment and Plan Plan: This is an 82-year-old male patient who had a fall at home on Monday and presents with rhabdomyolysis and acute kidney injury, multiple decubitus ulcers and dehydration. Patient will be started on IV antibiotics in the form of vancomycin. Wound care will be addressed. Tetanus status was updated in the emergency center. We'll add an x-ray of the left hand and wrist to rule out fracture. Patient is currently on [facility] protocol. Monitor for DTs. For his severe protein calorie malnutrition, multivitamin and ensure added. Nicotine patch will be ordered. Continue supportive care. Further recommendations as patient progresses. The above dictated assessment and findings were discussed with Dr. Wagner. The impression and plan of care have been directed as dictated. Jovita Fritz nurse practitioner acting as scribe for Dr. Wagner.
[2017-11-02] MEDS: NICOTINE 21MG/24HR PATCH TRANSDERM SCH (11:16)
[2017-11-02] MEDS: THIAMINE 100 MG TAB PO SCH ×2 (11:17→16:37)
[2017-11-02] MEDS: ASCORBIC ACID 500 MG TAB PO SCH (11:17)
[2017-11-02] MEDS: MULTIVITAMINS, THERA 1 EACH TAB PO SCH (11:17)
[2017-11-02] MEDS ORDERED: CHOLECALCIFEROL 1,000 UNIT TAB PO SCH (12:00)
[2017-11-02] MEDS ORDERED: VANCOMYCIN IV PER PHARMACY 1 EACH MISC MISCELLANE SCH (13:00)
[2017-11-02] MEDS ORDERED: VANCOMYCIN 1,000 MG in SODIUM CHLORIDE 0.9% 250 ML IVPB ONE (13:30)
--- NOTE | 2017-11-02 14:34 | XR ---
Left wrist and left hand HISTORY: Trauma and pain 4 views of the left wrist, 3 views of the left hand submitted There is soft tissue swelling present. Small ossific density present just volar to be distal metaphys eal radius measuring only 1 to 2 mm at the likely to be acute. Alignment, joint spaces maintained. No evident acute fracture or dislocation. Bone mineralization is reduced which may limit sensitivity. IMPRESSION: No definite fracture or dislocation. Follow-up as indicated.
--- NOTE | 2017-11-02 16:32 | HP ---
HISTORY AND PHYSICAL DATE OF ADMISSION: 11/01/17 PRESENTING COMPLAINT: Fall. HISTORY OF PRESENTING COMPLAINT: Pleasant 82-year-old patient of Dr. Roberts. Chronic stable medical conditions include hyperlipidemia, hypertension, osteoarthritis, and tremors. The patient is irregular at baseline on his gait, but does not use any support. The patient presented to the ER. Daughter is at the bedside. Last she talked on Monday. It was felt patient was on the floor for at least a day and a half. The patient does not remember what actually happened. Does not remember having any chest pains or palpitations. The patient has been dizzy at times. No focal weakness. The patient was found on the left side down with a breakdown of skin in the left upper extremity, left hip, left lower extremity where he was in contact with the ground. Does feel tired and run down. The patient has been drinking for a long time, about 12 pack of beer and also up to about 3 packs of cigarettes a day. Pretty run down. The patient in the ER was found to be in renal failure. Troponin leak. REVIEW OF SYSTEMS: CONSTITUTIONAL: Tired. HEENT: Decreased hearing. RESPIRATORY: Some short of breath, cough. CARDIOVASCULAR: No chest pain. GASTROINTESTINAL: None. GENITOURINARY: None. MUSCULOSKELETAL: Arthritic pain in many joints. DERMATOLOGICAL: Breakdown of skin especially on the left side as above. HEMATOLOGICAL: None. LYMPHATICS: None. PSYCHIATRY: A bit forgetful. NEUROLOGICAL: Nil focal. PAST MEDICAL HISTORY: Stroke, hyperlipidemia, hypertension, osteoarthritis, alcoholism, left humeral, left femoral fracture, kidney stones. PAST SURGICAL HISTORY: Hernia repair, shoulder surgery, left hip hemiarthroplasty. SOCIAL HISTORY: Lives by himself, has a walking stick, does not use. Smokes about 3 packs a day for close to 70 years. Also been drinking 12 pack of beer for a long time. 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 FAMILY HISTORY: Hypertension. HOME MEDICATIONS: 1. Thiamine 100 mg a day. 2. Zestril 10 mg a day. 3. Tricor 145 mg a day. 4. Celexa 30 mg a day. 5. Vitamin D3 1000 units a day. 6. Aspirin 81 mg a day. 7. Vitamin C 500 mg p.o. daily. ALLERGIES: None. PHYSICAL EXAMINATION: Vital signs on presentation: Temperature 97.5, pulse 93, respiratory 18, blood pressure 154/89, pulse ox 93% on 2 L. GENERAL APPEARANCE: Thin built, BMI 18.2, lying in bed, tired appearing. EYES: Pupils equal. Conjunctivae pale. HEENT: External nose and ears normal. Oral cavity dry. NECK: JVD unable to assess. Mass not palpable. RESPIRATORY: Effort increased. LUNGS: Diminished breath sounds, some wheezing. CARDIOVASCULAR: First and second sounds normal. No edema. ABDOMEN: Soft, nontender. Liver and spleen not palpable. LYMPHATIC: No lymph node palpable in neck or axillae. PSYCHIATRY: Awake, able to answer simple questions. NEUROLOGICAL: Pupils equal. No facial asymmetry. Power and sensation grossly intact. MUSCULOSKELETAL: Evidence of osteoarthritis especially in the hands and knees. DERMATOLOGICAL: The patient has got a breakdown of the skin, left upper extremity lateral part of the left thigh and left lower extremity below the knee with skin abrasion and area of redness. INVESTIGATIONS: White count 12.5, hemoglobin 16.3, potassium 4.3, BUN 50, creatinine 1.75, bilirubin 1.4. CPK 1323, troponin 0.14, 0.11, 0.089. UA with serum alcohol less than 10. Chest x-ray film interpreted by me, shows some hyperexpansion. No obvious infiltrate. Head, cervical spine CT; no fracture, though there is evidence of osteoarthritis. EKG tracing interpreted by me shows low voltage EKG. ASSESSMENT: 1. The patient is found on the ground, cause of unconsciousness unknown. The patient is not sure how long he was there for, probably at least a day and a half per the daughter. 2. Multiple skin bruising especially on the left side of the body with areas of de jostin with secondary infection. 3. Chronic alcoholic dependence. 4. Chronic nicotine dependence. 5. Chronic obstructive pulmonary disease in a current smoker. 6. Depression, not otherwise specified. 7. Primary osteoarthritis of multiple joints, bilateral. 8. Acute renal failure could be prerenal and acute tubular necrosis from rhabdomyolysis. 9. Acute rhabdomyolysis secondary to fall. PLAN: The patient will be given the IV hydration. Will DC patient's Zestril. Repeat electrolytes in the morning. Will put the patient on a small dose of Valium for DT prophylaxis. CIWA scale will be initiated. Local wound care to continue. Patient is started on vancomycin in the ER. Would like to discontinued that in view of renal failure. Infectious disease Dr. Wagner was consulted for the wounds. PT, OT is being consulted. Cardiology was consulted from the ER. Most likely the troponin leak is in the setting of renal failure though. Acute MO cannot be ruled out given that patient was on the floor for at least 48 hours and this could be a downward trend of troponin as patient does not remember much. I did speak at length to the patient's daughter at the bedside. MMODL / IJN: [id number] /
[2017-11-02] MEDS: DAPTOmycin 500 MG in SODIUM CHLORIDE 0.9% 50 ML IVPB SCH (16:36)
[2017-11-02] MEDS: LACTATED RINGERS 1,000 ML IV SCH (16:40)
--- NOTE | 2017-11-02 22:27 | P.CON ---
Consult Note - . Consult date: 11/02/17 Assessment/Plan:: This is an 82-year-old male patient who currently lives alone. He apparently fell on Monday and was laying on the floor until yesterday. He states that he was feeling dizzy and fell. He drank 3 beers that day but according to his daughter he states he drinks up to a 12 pack a day and has been doing this for many years. Patient states that he was laying on his left side and his left hand and arm were underneath him and he was unable to move it out. Patient was transported by EMS to [facility] emergency center for evaluation. His ammonia level was 23, blood sugar in the 130s total bilirubin 1.4, AST 90, applying phosphatase and ALT within normal limits, CK was 1323. BUN 15 creatinine 1.75 white count was at 12. Troponin 0.141, 0.113 , 0.089. Alcohol level was less than 10. Urinalysis was orange with 1+ bilirubin. Chest x-ray shows no acute abnormality but multiple old fractures. CAT scan of the head and cervical spine showed no acute fracture or dislocation of the cervical spine. No acute intracranial hemorrhage or midline shift. Moderate diffuse cerebral atrophy and advanced chronic small vessel ischemic change. New right parietal scalp hematoma. Patient has been afebrile since admission. He is not on antibiotics. His tetanus status was updated in the emergency center. Patient presents with multiple abrasions and wounds to his left buddhism and cheek, left hand and wrist dorsal and palmar surfaces, multiple areas on his left chest and abdomen as well as left lower extremity. According to the patient's daughter patient has frequent falls although he will deny at. I discussed discharge planning with the patient and he is open to going to [facility] because he was there about 2 years ago after a hip fracture. Daughter is DURABLE POWER OF MARKETING REPRESENTATIVE and family are hoping that they can make arrangements so he does not return home. He has received 3 L of IV fluid, thiamine and CIWA protocol in place. He does state that he has not been eating much due to lack of appetite and has lost 15 lbs over the past couple months. He denies any nausea, vomiting, diarrhea. He denies chest pain , shortness of breath. He has a chronic productive cough. Please see the consult note is dictated by nurse practitioner Mrs. Jovita Fritz. The patient's daughter is present in relates to the patient's worsening status and concerns to her ability to care for himself. The patient is evidence of the multiple wounds that developed from his fall and being unable to buy his own power get up off the floor. We'll place mupirocin over the wounds to the face as well as to the chest wall and abdomen area. To the left hand and palmar surface Silvadene will be applied will also be applied to the ulceration to the left leg and wrapped and place nonstick with gauze. Antibiotic therapy originally was considered with vancomycin however with his elevated creatinine his changed to daptomycin while cultures are pending. We' ll obtain a whole-body bone scan to evaluate the areas of pressure to determine if there is potential underlying bony infection. I agree with evaluation, assessment and plan as dictated by nurse practitioner Mrs. Jovita Fritz.
[2017-11-02] MEDS: MUPIROCIN 2% OINT 22 GM TUBE TOPICAL SCH ×2 (23:29)
[2017-11-02] MEDS: SILVER sulfADIAZINE Cream 400 GM 1 APPLIC APPLIC TOPICAL SCH (23:29)
[2017-11-03] MEDS: LACTATED RINGERS 1,000 ML IV SCH ×3 (06:40→23:54)
[2017-11-03 07:21] LABS: Anion Gap 4 mmol/L; Blood Urea Nitrogen 20 mg/dL (9-20); Calcium 8.8 mg/dL (8.4-10.2); Carbon Dioxide 27 mmol/L (22-30); Chloride 105 mmol/L (98-107); Glucose 80 mg/dL (74-99); Potassium 3.7 mmol/L (3.5-5.1); Sodium 136 mmol/L (137-145)
[2017-11-03] MEDS: THIAMINE 100 MG TAB PO SCH ×2 (09:32→16:30)
[2017-11-03] MEDS: MULTIVITAMINS, THERA 1 EACH TAB PO SCH (09:32)
[2017-11-03] MEDS: HEPARIN SODIUM,PORCINE 5,000 UNIT/ML 1 ML VIAL SQ SCH ×2 (09:32→20:28)
[2017-11-03] MEDS: FENOFIBRATE 160 MG TAB PO SCH (09:32)
[2017-11-03] MEDS: ASPIRIN 81 MG PO SCH (09:32)
[2017-11-03] MEDS: CITALOPRAM HYDROBROMIDE 10 MG TAB PO SCH (09:32)
[2017-11-03] MEDS: SILVER sulfADIAZINE Cream 400 GM 1 APPLIC APPLIC TOPICAL SCH (09:33)
[2017-11-03] MEDS: NICOTINE 21MG/24HR PATCH TRANSDERM SCH ×3 (09:33→13:28)
[2017-11-03] MEDS: MUPIROCIN 2% OINT 22 GM TUBE TOPICAL SCH ×4 (09:34→20:35)
[2017-11-03] MEDS: ASCORBIC ACID 500 MG TAB PO SCH (12:09)
--- NOTE | 2017-11-03 15:27 | PN ---
PROGRESS NOTE DATE OF SERVICE: 11/03/17 PRESENTING COMPLAINT: Fall. INTERVAL HISTORY: This is a patient was found on the floor for close to 2 days and actually had passed out. The patient presented with acute renal failure, acute rhabdomyolysis, multiple skin bruising. The patient does drink alcohol and smokes cigarettes. A bit more awake today, though weak and tired. Wound care has been taken care of. REVIEW OF SYSTEMS: Done for constitutional, cardiovascular, GI, pulmonary; relevant findings as above. CURRENT MEDICATIONS: Reviewed that include IV daptomycin. PHYSICAL EXAMINATION: Temperature 98, pulse 79, respiration 17, blood pressure 130/63, pulse ox 94% on room air. GENERAL APPEARANCE: Lying in bed, awake. EYES: Pupils equal. Conjunctivae normal. HEENT: External appearance of nose and ears normal. Oral cavity normal. NECK: JVD unable to assess. Mass not palpable. RESPIRATORY: Effort increased. Lungs, decreased breath sounds, wheezing. CARDIOVASCULAR: First and second sounds, no edema. ABDOMEN: Soft, nontender. Liver and spleen not palpable. PSYCHIATRY: Awake, answering simple questions. DERMATOLOGICAL: Areas of multiple scalp breakdown especially on the left side. INVESTIGATIONS: Potassium 3.7, creatinine 0.76, troponin 0.113 and 0.089. ASSESSMENT: 1. Patient was unconscious, cause unclear. At this point, could be from hypotension. 2. Multiple skin bruising, especially on the left side from area of contact on the floor with secondary infection on IV daptomycin. 3. Chronic alcohol dependence. 4. Chronic nicotine dependence. 5. Chronic obstructive pulmonary disease in a current smoker. 6. Depression, not otherwise specified. 7. Primary osteoarthritis in multiple joints bilateral. 8. Acute renal and prerenal, could be acute tubular necrosis with biochemical improvement. 9. Acute rhabdomyolysis secondary to fall. 10.Medical debility. PLAN: Continue current medication and treatment plan. Supportive care. Care was discussed with the patient. Follow. MMODL / IJN: [id number] /
--- NOTE | 2017-11-03 16:01 | NM ---
EXAMINATION TYPE: NM bone 3 phase DATE OF EXAM: 11/03/2017 COMPARISON: Plain film 11/02/2017 HISTORY: Nonhealing wounds, patient down for 3 days, osteoarthritis, osteomyelitis of the left wrist, pelvis, left leg Triple phase bone scintigraphy was performed following the injection of 26.9 mCi Tc 99m MDP. Immedia te images and 5.5 hours post injection images acquired. FINDINGS: Blood flow and blood pool activity noted over the pelvis, blood pool activity also performed over the knee, delayed imaging over the pelvis, knees and left hand and wrist. Increased blood flow and blood pool activity noted in the soft tissues overlying the left hip with so me central decreased reaffirms of uptake. Patient shows a photopenic area at the level of the left hi p compatible with postop hip arthroplasty. No abnormal uptake to suggest osteomyelitis of the left hi p or knee, knee uptake is symmetric. There is increased uptake noted at the level of the left wrist on delayed imaging as well as the leve l of the distal forearm. Some increased uptake noted within the right renal collecting system may be due to some hydronephrosi s. Bandlike area of increased pharmaceutical uptake in the lumbar spine be due to osteoporotic compre ssion fracture of indeterminate age. There is some uptake noted along the lateral left RIBS possibly posttraumatic. IMPRESSION: Findings in the distal forearm and wrist could be posttraumatic. Infection is not excluded, consider MRI as indicated, exam not tailored ideally for evaluation of osteomyelitis within the left hand and wrist due to multiple sites evaluated. Additional possible posttraumatic changes above.
[2017-11-03] MEDS: DAPTOmycin 500 MG in SODIUM CHLORIDE 0.9% 50 ML IVPB SCH (16:29)
--- NOTE | 2017-11-03 19:32 | P.PN ---
Subjective Progress Note Date: 11/03/17 This is an 82-year-old male patient who currently lives alone. He apparently fell on Monday and was laying on the floor until yesterday. He states that he was feeling dizzy and fell. He drank 3 beers that day but according to his daughter he states he drinks up to a 12 pack a day and has been doing this for many years. Patient states that he was laying on his left side and his left hand and arm were underneath him and he was unable to move it out. Patient was transported by EMS to [facility] emergency center for evaluation. His ammonia level was 23, blood sugar in the 130s total bilirubin 1.4, AST 90, applying phosphatase and ALT within normal limits, CK was 1323. BUN 15 creatinine 1.75 white count was at 12. Troponin 0.141, 0.113 , 0.089. Alcohol level was less than 10. Urinalysis was orange with 1+ bilirubin. Chest x-ray shows no acute abnormality but multiple old fractures. CAT scan of the head and cervical spine showed no acute fracture or dislocation of the cervical spine. No acute intracranial hemorrhage or midline shift. Moderate diffuse cerebral atrophy and advanced chronic small vessel ischemic change. New right parietal scalp hematoma. Patient has been afebrile since admission. He is not on antibiotics. His tetanus status was updated in the emergency center. Patient presents with multiple abrasions and wounds to his left denominational and cheek, left hand and wrist dorsal and palmar surfaces, multiple areas on his left chest and abdomen as well as left lower extremity. According to the patient's daughter patient has frequent falls although he will deny at. I discussed discharge planning with the patient and he is open to going to [facility] because he was there about 2 years ago after a hip fracture. Daughter is DURABLE POWER OF PAVING AND SURFACING LABOURER and family are hoping that they can make arrangements so he does not return home. He has received 3 L of IV fluid, thiamine and CIWA protocol in place. He does state that he has not been eating much due to lack of appetite and has lost 15 lbs over the past couple months. He denies any nausea, vomiting, diarrhea. He denies chest pain , shortness of breath. He has a chronic productive cough. 11/03/2017 patient is feeling about the same as yesterday. Wonders if he gets to go home later today or tomorrow. We will redirect him that the plan at this point in time we'll refer him to go to [facility] once he is stable which will likely be early next week. He certainly is comfortable but has significant weakness. His multiple wounds are less painful Objective - Vital Signs Vital signs: Vital Signs Temp 98.1 F 11/03/17 16:00 Pulse 87 11/03/17 16:00 Resp 18 11/03/17 16:00 BP 131/82 11/03/17 16:00 Pulse Ox 94 L 11/03/17 16:00 Intake & Output 11/03/17 11/03/17 11/04/17 06:59 18:59 06:59 Intake Total 1340 1060 Output Total 300 500 Balance 1040 560 Weight 61.5 kg Intake: Intake, IV Titration 1100 700 Amount Lactated Ringers 1,000 ml 1100 700 @ 100 mls/hr IV .Q10H NEVIN Rx#:[id number] Oral 240 360 Output: Urine 300 500 Other: Voiding Method Urinal Diaper Incontinent # Voids 4 - Exam Gen: This is an 82-year-old. Patient is in bed and appears to be comfortable and in no acute distress. Patient does have pain with minimal movement secondary to significant wounds. HEENT: Head is normocephalic. Ulcer to the left denominational and left cheek with serous drainage. Pupils equal, round. Sclerae is anicteric. Conjunctiva somewhat pale. Mucous members of the mouth are moist. Dentures in place on the upper. No lesions noted. NECK: Supple. No JVD. No lymphadenopathy. No thyromegaly. LUNGS: Clear to auscultation. No wheezes or rhonchi. No intercostal retractions. HEART: Regular rate and rhythm. No murmur. ABDOMEN: Soft. Bowel sounds are present. No masses. No tenderness. EXTREMITIES: No pedal edema. No calf tenderness. Dorsalis pedis +1 bilaterally. Onychomycosis noted bilaterally. SKIN: There are multiple decubitus ulcers on the left chest wall and left abdomen with surrounding erythema and edema. Large hematoma to the left hand with significant edema to the wrist and hand. Decubitus ulcer to the left lateral knee. All wounds have surrounding erythema. None of them have significant drainage at this time. NEUROLOGICAL: Patient is awake, alert and oriented x2 - Labs CBC & Chem 7: 11/01/17 13:40 11/03/17 05:59 Labs: Abnormal Lab Results - Last 24 Hours (Table) 11/03/17 Range/Units 05:59 Sodium 136 L (137-145) mmol/L Microbiology - Last 24 Hours (Table) 11/02/17 11:20 Gram Stain - Preliminary Hip - Left Wound Culture - Preliminary Laboratory Results WBC 12.5 k/uL (3.8-10.6) H 11/01/17 13:40 RBC 5.37 m/uL (4.30-5.90) 11/01/17 13:40 Hgb 16.3 gm/dL (13.0-17.5) 11/01/17 13:40 Hct 50.2 % (39.0-53.0) 11/01/17 13:40 MCV 93.5 fL (80.0-100.0) 11/01/17 13:40 MCH 30.3 pg (25.0-35.0) 11/01/17 13:40 MCHC 32.4 g/dL (31.0-37.0) 11/01/17 13:40 RDW 13.6 % (11.5-15.5) 11/01/17 13:40 Plt Count 401 k/uL (150-450) 11/01/17 13:40 Neutrophils % 82 % 11/01/17 13:40 Lymphocytes % 7 % 11/01/17 13:40 Monocytes % 9 % 11/01/17 13:40 Eosinophils % 0 % 11/01/17 13:40 Basophils % 0 % 11/01/17 13:40 Neutrophils # 10.2 k/uL (1.3-7.7) H 11/01/17 13:40 Lymphocytes # 0.9 k/uL (1.0-4.8) L 11/01/17 13:40 Monocytes # 1.1 k/uL (0-1.0) H 11/01/17 13:40 Eosinophils # 0.0 k/uL (0-0.7) 11/01/17 13:40 Basophils # 0.0 k/uL (0-0.2) 11/01/17 13:40 Sodium 136 mmol/L (137-145) L 11/03/17 05:59 Potassium 3.7 mmol/L (3.5-5.1) 11/03/17 05:59 Chloride 105 mmol/L (98-107) 11/03/17 05:59 Carbon Dioxide 27 mmol/L (22-30) 11/03/17 05:59 Anion Gap 4 mmol/L 11/03/17 05:59 BUN 20 mg/dL (9-20) 11/03/17 05:59 Creatinine 0.76 mg/dL (0.66-1.25) 11/03/17 05:59 Est GFR (CKD-EPI)AfAm >90 (>60 ml/min/1.73 sqM) 11/03/17 05:59 Est GFR (CKD-EPI)NonAf 86 (>60 ml/min/1.73 sqM) 11/03/17 05:59 Glucose 80 mg/dL (74-99) 11/03/17 05:59 POC Glucose (mg/dL) 135 mg/dL (75-99) H 11/01/17 14:59 POC Glu [employer] ID [place] 11/01/17 14:59 Plasma Lactic Acid [place] 2.0 mmol/L (0.7-2.0) 11/01/17 13:40 Calcium 8.8 mg/dL (8.4-10.2) 11/03/17 05:59 Magnesium 2.4 mg/dL (1.6-2.3) H 11/01/17 13:40 Total Bilirubin 1.4 mg/dL (0.2-1.3) H 11/01/17 13:40 AST 98 U/L (17-59) H 11/01/17 13:40 ALT 51 U/L (21-72) 11/01/17 13:40 Alkaline Phosphatase 71 U/L (38-126) 11/01/17 13:40 Ammonia 23 umol/L (<30) 11/01/17 13:40 Total Creatine Kinase 695 U/L (55-170) H 11/02/17 01:42 CK-MB (CK-2) 4.0 ng/mL (0.0-2.4) H* 11/02/17 01:42 CK-MB (CK-2) Rel Index 0.6 11/02/17 01:42 Troponin I 0.089 ng/mL (0.000-0.034) H* 11/02/17 01:42 Total Protein 6.5 g/dL (6.3-8.2) 11/01/17 13:40 Albumin 3.8 g/dL (3.5-5.0) 11/01/17 13:40 Lipase 37 U/L (23-300) 11/01/17 13:40 Urine Color Duck 11/01/17 15:10 Urine Appearance Cloudy (Clear) 11/01/17 15:10 Urine pH 5.5 (5.0-8.0) 11/01/17 15:10 Ur Specific [place] 1.020 (1.001-1.035) 11/01/17 15:10 Urine Protein 1+ (Negative) H 11/01/17 15:10 Urine Glucose (UA) Negative (Negative) 11/01/17 15:10 Urine Ketones Negative (Negative) 11/01/17 15:10 Urine Blood Negative (Negative) 11/01/17 15:10 Urine Nitrite Negative (Negative) 11/01/17 15:10 Urine Bilirubin 1+ (Negative) H 11/01/17 15:10 Urine Urobilinogen 2.0 mg/dL (<2.0) 11/01/17 15:10 Ur Leukocyte Esterase Negative (Negative) 11/01/17 15:10 Urine RBC <1 /hpf (0-5) 11/01/17 15:10 Urine WBC 2 /hpf (0-5) 11/01/17 15:10 Ur Squamous Epith Cells 1 /hpf (0-4) 11/01/17 15:10 Hyaline Casts 35 /lpf (0-2) H 11/01/17 15:10 Urine Mucus Moderate /hpf (None) H 11/01/17 15:10 Serum Alcohol <10 mg/dL 11/01/17 13:40 Microbiology 11/02/17 11:20 Hip - Left Gram Stain - Preliminary 11/02/17 11:20 Hip - Left Wound Culture - Preliminary Assessment and Plan (1) Renal insufficiency Current Visit: Yes Status: Acute Code(s): N28.9 - DISORDER OF KIDNEY AND URETER, UNSPECIFIED SNOMED Code(s): 588145459 (2) Fall Narrative/Plan: the patient's worsening status and concerns to her ability to care for himself. The patient is evidence of the multiple wounds that developed from his fall and being unable to buy his own power get up off the floor. We'll place mupirocin over the wounds to the face as well as to the chest wall and abdomen area. To the left hand and palmar surface Silvadene will be applied will also be applied to the ulceration to the left leg and wrapped and place nonstick with gauze. Antibiotic therapy originally was considered with vancomycin however with his elevated creatinine his changed to daptomycin while cultures are pending. We' ll obtain a whole-body bone scan to evaluate the areas of pressure to determine if there is potential underlying bony infection. Patient seems to responding well to antibiotic therapy at this time. He is somewhat comfortable. Waiting to determine what her overall actions will be once cultures are been finalized. Continue local wound care at this point in time with the mupirocin to the injuries and ulceration with eschar to the face and chest wall. To the eschars to the left lateral thigh lower left leg and right knee area Silvadene is applied to these areas. Always presser ulcerations are with eschar and are unstageable at this time. They were all present on admission. Bone scan is pending to determine if there is any deeper infection at this time. Current Visit: Yes Status: Acute Code(s): W19.XXXA - UNSPECIFIED FALL, INITIAL ENCOUNTER SNOMED Code(s): 6685779
[2017-11-04 06:42] LABS: Anion Gap 4 mmol/L; Blood Urea Nitrogen 13 mg/dL (9-20); Calcium 8.5 mg/dL (8.4-10.2); Carbon Dioxide 26 mmol/L (22-30); Chloride 105 mmol/L (98-107); Glucose 87 mg/dL (74-99); Potassium 3.1 mmol/L (3.5-5.1); Sodium 135 mmol/L (137-145)
[2017-11-04] MEDS: NICOTINE 21MG/24HR PATCH TRANSDERM SCH (09:20)
[2017-11-04] MEDS: HEPARIN SODIUM,PORCINE 5,000 UNIT/ML 1 ML VIAL SQ SCH ×2 (09:20→20:17)
[2017-11-04] MEDS: ASPIRIN 81 MG PO SCH (09:21)
[2017-11-04] MEDS: FENOFIBRATE 160 MG TAB PO SCH (09:21)
[2017-11-04] MEDS: CITALOPRAM HYDROBROMIDE 10 MG TAB PO SCH (09:21)
[2017-11-04] MEDS: LACTATED RINGERS 1,000 ML IV SCH ×2 (09:31→20:18)
[2017-11-04] MEDS ORDERED: Potassium Replacement Protocol 1 EACH MISC MISCELLANE PRN (12:29)
[2017-11-04] MEDS: MULTIVITAMINS, THERA 1 EACH TAB PO SCH (13:06)
[2017-11-04] MEDS: THIAMINE 100 MG TAB PO SCH ×2 (13:06→16:35)
[2017-11-04] MEDS: ASCORBIC ACID 500 MG TAB PO SCH (13:06)
--- NOTE | 2017-11-04 13:31 | P.PN ---
Subjective Progress Note Date: 11/04/17 Principal diagnosis: Fall Multiple decubitus ulcers on left side Rhabdomyolysis Acute renal injury Chronic alcohol use This is a 82-year-old male history of CVA, alcoholism who apparently became weak and fell on the floor where he remained for 2 days since he was not able to get up. He was found lying on the floor on his left side. Is brought in by EMS for evaluation. He is found to have multiple pressure sores 11/04/2017 Patient is seen and evaluated in the room at bedside; denies any new complaints of pain or shortness of breath; patient questions if he is going to be discharged home; I did discuss possible discharge to skilled rehab as planned with patient and family; we did discuss bone scan results which show some changes and distal forearm and wrist possibly posttraumatic versus infection; MRI has been recommended; infection diseases following and we await further recommendations from their service Objective - Vital Signs Vital signs: Vital Signs Temp 97.4 F L 11/04/17 08:00 Pulse 97 11/04/17 08:00 Resp 18 11/04/17 08:00 BP 152/77 11/04/17 08:00 Pulse Ox 94 L 11/04/17 08:00 Intake & Output 11/03/17 11/04/17 11/04/17 18:59 06:59 18:59 Intake Total 1060 240 Output Total 500 400 Balance 560 -400 240 Weight 65 kg Intake: Intake, IV Titration 700 Amount Lactated Ringers 1,000 ml 700 @ 100 mls/hr IV .Q10H NEVIN Rx#:[id number] Oral 360 240 Output: Urine 500 400 Other: Voiding Method Urinal Urinal Diaper Diaper Incontinent Incontinent # Voids 2 - Exam - Constitutional General appearance: Present: average body habitus, cooperative, no acute distress - EENT Eyes: Present: anicteric sclerae, EOMI, PERRLA, normal appearance ENT: Present: hearing grossly normal, normal oropharynx Ears: bilateral: normal - Neck Neck: Present: normal ROM. Absent: lymphadenopathy, rigidity, thyromegaly Carotids: negative: bruit present Thyroid: bilateral: normal size, negative: enlarged, nodule - Respiratory Respiratory: bilateral: CTA, negative: rales, rhonchi, wheezing - Cardiovascular Rhythm: regular Heart sounds: normal: S1, S2 Abnormal Heart Sounds: Absent: systolic murmur, diastolic murmur - Gastrointestinal General gastrointestinal: Present: normal bowel sounds, soft. Absent: distended , organomegaly, tenderness - Genitourinary Genitourinary Comment(s): deferred - Integumentary Integumentary: There are multiple decubitus ulcers on the left chest wall and left abdomen with surrounding erythema and edema. Large hematoma to the left hand with significant edema to the wrist and hand. Decubitus ulcer to the left lateral knee. All wounds have surrounding erythema. - Neurologic Neurologic: Present: CNII-XII intact. Absent: focal deficits - Musculoskeletal Musculoskeletal: Present: gait normal, strength equal bilaterally - Psychiatric Psychiatric: Present: A&O x's 3, appropriate affect, intact judgment & insight - Labs CBC & Chem 7: 11/01/17 13:40 11/04/17 06:12 Labs: Abnormal Lab Results - Last 24 Hours (Table) 11/04/17 Range/Units 06:12 Sodium 135 L (137-145) mmol/L Potassium 3.1 L (3.5-5.1) mmol/L Assessment and Plan Assessment: 1. Rhabdomyolysis - Clinically improving; we will continue with IV fluid hydration lactated Ringer at 100 mL an hour - Monitor total CK periodically 2. Acute renal failure - Resolved with IV fluid hydration off lactated Ringer at 100 mL an hour - We will continue to monitor strict TIMOTHY's, renal function and electrolytes - We will avoid hypotension and nephrotoxins 3. Multiple infected decubitus ulcers/ cellulitis - ID is following - Patient remains on IV daptomycin 500 mg every 24 hours as recommended by ID - Local wound care as recommended by ID 4. Hypertension; stable without any medications; we will continue to monitor 5. Hyperlipidemia; continue with home dose of fenofibrate 6. CVA/TIA; remains on aspirin 81 mg daily 7. Chronic alcohol abuse with impending DTs - Patient remains on CIWA protocol - Counseling done and cessation of alcohol use 8. Chronic tobacco abuse; we will continue with nicotine patch as prescribed 9. DVT prophylaxis; subcu heparin CODE STATUS; full code Time with Patient: Greater than 30
[2017-11-04] MEDS: POTASSIUM CHLORIDE ER 20 MEQ TAB.ER PO SCH ×4 (14:12→21:58)
[2017-11-04] MEDS: SILVER sulfADIAZINE Cream 400 GM 1 APPLIC APPLIC TOPICAL SCH (14:15)
[2017-11-04] MEDS: MUPIROCIN 2% OINT 22 GM TUBE TOPICAL SCH ×5 (14:16→20:18)
[2017-11-04 16:22] LABS: Glucose,Whole Blood 135 mg/dL (75-99)
[2017-11-04] MEDS: DAPTOmycin 500 MG in SODIUM CHLORIDE 0.9% 50 ML IVPB SCH (16:31)
[2017-11-05 06:48] LABS: Basophils % (A) 0 %; Eosinophils # (A) 0.1 k/uL (0-0.7); Eosinophils % (A) 2 %; HCT 43.3 % (39.0-53.0); HGB 14.1 gm/dL (13.0-17.5); Lymphocytes # (A) 0.7 k/uL (1.0-4.8); Lymphocytes % (A) 8 %; MCH 31.1 pg (25.0-35.0); MCHC 32.5 g/dL (31.0-37.0); MCV 95.7 fL (80.0-100.0); Mean Platelet Volume 7.5; Monocytes # (A) 0.6 k/uL (0-1.0); Monocytes % (A) 7 %; Neutrophils # (A) 7.1 k/uL (1.3-7.7); Neutrophils % (A) 82 %; Platelet Count 303 k/uL (150-450); RBC 4.53 m/uL (4.30-5.90); RDW 13.3 % (11.5-15.5); WBC 8.7 k/uL (3.8-10.6)
[2017-11-05 07:00] LABS: Anion Gap 8 mmol/L; Blood Urea Nitrogen 14 mg/dL (9-20); Calcium 9.5 mg/dL (8.4-10.2); Carbon Dioxide 25 mmol/L (22-30); Chloride 105 mmol/L (98-107); Creatine Kinase 201 U/L (55-170); Glucose 98 mg/dL (74-99); Potassium 4.3 mmol/L (3.5-5.1); Sodium 138 mmol/L (137-145)
[2017-11-05] MEDS: ASPIRIN 81 MG PO SCH (08:56)
[2017-11-05] MEDS: FENOFIBRATE 160 MG TAB PO SCH (08:56)
[2017-11-05] MEDS: CITALOPRAM HYDROBROMIDE 10 MG TAB PO SCH (08:56)
[2017-11-05] MEDS: HEPARIN SODIUM,PORCINE 5,000 UNIT/ML 1 ML VIAL SQ SCH ×2 (08:56→20:04)
[2017-11-05] MEDS: NICOTINE 21MG/24HR PATCH TRANSDERM SCH (08:56)
--- NOTE | 2017-11-05 12:49 | P.PN ---
Subjective Progress Note Date: 11/05/17 Principal diagnosis: Fall Multiple decubitus ulcers on left side Rhabdomyolysis Acute renal injury Chronic alcohol use This is a 82-year-old male history of CVA, alcoholism who apparently became weak and fell on the floor where he remained for 2 days since he was not able to get up. He was found lying on the floor on his left side. Is brought in by EMS for evaluation. He is found to have multiple pressure sores 11/04/2017 Patient is seen and evaluated in the room at bedside; denies any new complaints of pain or shortness of breath; patient questions if he is going to be discharged home; I did discuss possible discharge to skilled rehab as planned with patient and family; we did discuss bone scan results which show some changes and distal forearm and wrist possibly posttraumatic versus infection; MRI has been recommended; infection diseases following and we await further recommendations from their service 11/05/2017 Patient is seen and evaluated in the room with family members at bedside; family requesting transfer of patient to [facility] for skilled rehab; we did discuss treatment plan and need for clearance for discharge by infection disease with switch to oral antibiotics versus IV antibiotic treatment prior to discharge to skilled rehab, patient remains on IV daptomycin 500 mg every 24 hours; family understands and is agreeable; patient's labs remained stable with a white blood count within normal limit and CK down to 201 from 695; we will plan to decrease IV fluids; shouldn't is advised to increase oral fluid intake; we'll continue to monitor electrolytes, TIMOTHY's and renal function. Possible discharge to skilled rehab in next 24-48 hours pending clearance from ID Objective - Vital Signs Vital signs: Vital Signs Temp 98.0 F 11/05/17 08:00 Pulse 71 11/05/17 08:00 Resp 18 11/05/17 08:00 BP 169/97 11/05/17 08:00 Pulse Ox 98 11/05/17 08:00 Intake & Output 11/04/17 11/05/17 11/05/17 18:59 06:59 18:59 Intake Total 840 800 240 Output Total 1350 1100 150 Balance -510 -300 90 Weight 66 kg Intake: Intake, IV Titration 800 Amount Lactated Ringers 1,000 ml 800 @ 100 mls/hr IV .Q10H NEVIN Rx#:[id number] Oral 840 240 Output: Urine 1350 1100 150 Other: Voiding Method Urinal Urinal Urinal Diaper Diaper Diaper Incontinent Incontinent Incontinent # Voids 1 # Bowel Movements 1 - Exam - Constitutional General appearance: Present: average body habitus, cooperative, no acute distress - EENT Eyes: Present: anicteric sclerae, EOMI, PERRLA, normal appearance ENT: Present: hearing grossly normal, normal oropharynx Ears: bilateral: normal - Neck Neck: Present: normal ROM. Absent: lymphadenopathy, rigidity, thyromegaly Carotids: negative: bruit present Thyroid: bilateral: normal size, negative: enlarged, nodule - Respiratory Respiratory: bilateral: CTA, negative: rales, rhonchi, wheezing - Cardiovascular Rhythm: regular Heart sounds: normal: S1, S2 Abnormal Heart Sounds: Absent: systolic murmur, diastolic murmur - Gastrointestinal General gastrointestinal: Present: normal bowel sounds, soft. Absent: distended , organomegaly, tenderness - Genitourinary Genitourinary Comment(s): deferred - Integumentary Integumentary: There are multiple decubitus ulcers on the left chest wall and left abdomen with surrounding erythema and edema. Large hematoma to the left hand with significant edema to the wrist and hand. Decubitus ulcer to the left lateral knee. All wounds have surrounding erythema. - Neurologic Neurologic: Present: CNII-XII intact. Absent: focal deficits - Musculoskeletal Musculoskeletal: Present: gait normal, strength equal bilaterally - Psychiatric Psychiatric: Present: A&O x's 3, appropriate affect, intact judgment & insight - Labs CBC & Chem 7: 11/05/17 06:21 11/05/17 06:21 Labs: Abnormal Lab Results - Last 24 Hours (Table) 11/04/17 11/05/17 11/05/17 Range/Units 16:17 06:21 06:21 Lymphocytes # 0.7 L (1.0-4.8) k/uL POC Glucose (mg/dL) 135 H (75-99) mg/dL Creatine Kinase 201 H (55-170) U/L Microbiology - Last 24 Hours (Table) 11/02/17 11:20 Gram Stain - Final Hip - Left Wound Culture - Final Assessment and Plan Assessment: 1. Rhabdomyolysis - Clinically improving; we will continue with IV fluid hydration lactated Ringer at 100 mL an hour - Monitor total CK periodically; slowly trending down 2. Acute renal failure - Resolved with IV fluid hydration off lactated Ringer at 100 mL an hour; we will decrease IV fluids to 50 mL an hour - We will continue to monitor strict TIMOTHY's, renal function and electrolytes - We will avoid hypotension and nephrotoxins 3. Multiple infected decubitus ulcers/ cellulitis - ID is following - Patient remains on IV daptomycin 500 mg every 24 hours as recommended by ID - Local wound care as recommended by ID 4. Hypertension; stable without any medications; we will continue to monitor 5. Hyperlipidemia; continue with home dose of fenofibrate 6. CVA/TIA; remains on aspirin 81 mg daily 7. Chronic alcohol abuse with impending DTs - Patient remains on CIWA protocol - Counseling done and cessation of alcohol use 8. Chronic tobacco abuse; we will continue with nicotine patch as prescribed 9. DVT prophylaxis; subcu heparin CODE STATUS; full code Disposition; patient remains clinically stable; possible discharge to residential facility in next 24-48 hours pending clearance from ID Time with Patient: Greater than 30
[2017-11-05] MEDS: MUPIROCIN 2% OINT 22 GM TUBE TOPICAL SCH ×5 (13:37→20:01)
[2017-11-05] MEDS: SILVER sulfADIAZINE Cream 400 GM 1 APPLIC APPLIC TOPICAL SCH (13:38)
[2017-11-05] MEDS: MULTIVITAMINS, THERA 1 EACH TAB PO SCH (13:39)
[2017-11-05] MEDS: THIAMINE 100 MG TAB PO SCH ×2 (13:39→17:04)
[2017-11-05] MEDS: ASCORBIC ACID 500 MG TAB PO SCH (13:40)
[2017-11-05] MEDS: SODIUM CHLORIDE 0.9% 1,000 ML IV SCH (14:54)
[2017-11-05] MEDS: LACTATED RINGERS 1,000 ML IV SCH (14:55)
[2017-11-05] MEDS: DAPTOmycin 500 MG in SODIUM CHLORIDE 0.9% 50 ML IVPB SCH (15:56)
[2017-11-06 08:31] LABS: Anion Gap 6 mmol/L; Carbon Dioxide 25 mmol/L (22-30); Chloride 105 mmol/L (98-107); Glucose 90 mg/dL (74-99); Sodium 136 mmol/L (137-145)
[2017-11-06] MEDS: HEPARIN SODIUM,PORCINE 5,000 UNIT/ML 1 ML VIAL SQ SCH ×2 (08:31→20:44)
[2017-11-06] MEDS: NICOTINE 21MG/24HR PATCH TRANSDERM SCH (08:33)
[2017-11-06] MEDS: CITALOPRAM HYDROBROMIDE 10 MG TAB PO SCH (08:33)
[2017-11-06] MEDS: MUPIROCIN 2% OINT 22 GM TUBE TOPICAL SCH ×5 (08:33→21:32)
[2017-11-06] MEDS: SILVER sulfADIAZINE Cream 400 GM 1 APPLIC APPLIC TOPICAL SCH (08:34)
[2017-11-06 08:56] LABS: Blood Urea Nitrogen 12 mg/dL (9-20); Potassium 4.5 mmol/L (3.5-5.1)
[2017-11-06] MEDS: FENOFIBRATE 160 MG TAB PO SCH (09:39)
[2017-11-06] MEDS: ASPIRIN 81 MG PO SCH (09:43)
[2017-11-06] MEDS: SODIUM CHLORIDE 0.9% 1,000 ML IV SCH (12:15)
[2017-11-06] MEDS: ASCORBIC ACID 500 MG TAB PO SCH (12:40)
[2017-11-06] MEDS: THIAMINE 100 MG TAB PO SCH ×2 (12:40→16:52)
[2017-11-06] MEDS: MULTIVITAMINS, THERA 1 EACH TAB PO SCH (12:40)
[2017-11-06 14:05] VITALS: BMI 21.4
[2017-11-06] MEDS: DAPTOmycin 500 MG in SODIUM CHLORIDE 0.9% 50 ML IVPB SCH (15:41)
[2017-11-06] MEDS: LISINOPRIL 10 MG TAB PO SCH (16:52)
--- NOTE | 2017-11-06 22:38 | P.PN ---
Subjective Progress Note Date: 11/06/17 Principal diagnosis: Fall Multiple decubitus ulcers on left side Rhabdomyolysis Acute renal injury Chronic alcohol use This is a 82-year-old male history of CVA, alcoholism who apparently became weak and fell on the floor where he remained for 2 days since he was not able to get up. He was found lying on the floor on his left side. Is brought in by EMS for evaluation. He is found to have multiple pressure sores 11/04/2017 Patient is seen and evaluated in the room at bedside; denies any new complaints of pain or shortness of breath; patient questions if he is going to be discharged home; I did discuss possible discharge to skilled rehab as planned with patient and family; we did discuss bone scan results which show some changes and distal forearm and wrist possibly posttraumatic versus infection; MRI has been recommended; infection diseases following and we await further recommendations from their service 11/05/2017 Patient is seen and evaluated in the room with family members at bedside; family requesting transfer of patient to [facility] for skilled rehab; we did discuss treatment plan and need for clearance for discharge by infection disease with switch to oral antibiotics versus IV antibiotic treatment prior to discharge to skilled rehab, patient remains on IV daptomycin 500 mg every 24 hours; family understands and is agreeable; patient's labs remained stable with a white blood count within normal limit and CK down to 201 from 695; we will plan to decrease IV fluids; shouldn't is advised to increase oral fluid intake; we'll continue to monitor electrolytes, TIMOTHY's and renal function. Possible discharge to skilled rehab in next 24-48 hours pending clearance from ID 11/06/2017 Patient denied any complaints of chest pain or shortness of breath. Feels generally weak. Wound dressing changes. Otherwise patient is being continued on daptomycin IV currently awaiting final ID recommendations. Patient will need to be transferred to rehab at detention. Otherwise no fever no chills. CPK level is trending down. No acute overnight issues. All other review of systems negative except the above Current medications reviewed. Objective - Vital Signs Vital signs: Vital Signs Temp 98.5 F 11/06/17 21:58 Pulse 88 11/06/17 21:58 Resp 16 11/06/17 21:58 BP 148/77 11/06/17 21:58 Pulse Ox 92 L 11/06/17 21:58 Intake & Output 11/06/17 11/06/17 11/07/17 06:59 18:59 06:59 Intake Total 590 50 Output Total 200 525 Balance 390 -475 Weight 66 kg 66 kg Intake: Intake, IV Titration 50 Amount DAPTOmycin 500 mg In 50 Sodium Chloride 0.9% 50 ml @ 100 mls/hr IVPB Q24H [facility] Rx#:[id number] Oral 590 Output: Urine 200 525 Other: Voiding Method Urinal Urinal Incontinent Incontinent # Voids 1 1 - Exam PHYSICAL EXAMINATION: Patient is lying in the bed comfortably, no acute distress, awake alert and oriented.. HEENT: Normocephalic. Neck is supple. Pupils reactive. Nostrils clear. Oral cavity is moist. Ears reveal no drainage. Neck reveals no JVD, carotid bruits, or thyromegaly. CHEST EXAMINATION: Trachea is central. Symmetrical expansion. Lung guerin clear to auscultation and percussion. CARDIAC: Normal S1, S2 with no gallops. No murmurs ABDOMEN: Soft. Bowel sounds normal. No organomegaly. No abdominal bruits. Extremities: reveal no edema. No clubbing or cyanosis Neurologically awake, alert, oriented x3 with well-coordinated movements. No focal deficits noted Skin: Integumentary: There are multiple decubitus ulcers on the left chest wall and left abdomen with surrounding erythema and edema. Large hematoma to the left hand with significant edema to the wrist and hand. Decubitus ulcer to the left lateral knee. All wounds have surrounding erythema with purulent slug.... Psychiatric: Coperative. Nonsuicidal Musculoskeletal: No joint swelling or deformity. Normal range of motion. - Labs CBC & Chem 7: 11/05/17 06:21 11/06/17 07:38 Labs: Abnormal Lab Results - Last 24 Hours (Table) 11/06/17 Range/Units 07:38 Sodium 136 L (137-145) mmol/L Creatinine 0.54 L (0.66-1.25) mg/dL Assessment and Plan Assessment: 1. Acute Rhabdomyolysis due to lying on the floor for prolonged period of time. - Clinically improving; we was continued with IV fluid hydration lactated Ringer at 100 mL an hour. Currently on normal saline at 50 mL per hour. - Monitor total CK periodically; slowly trending down 2. Acute kidney injury - Resolved with IV fluid hydration off lactated Ringer at 100 mL an hour; we will decrease IV fluids to 50 mL an hour - We will continue to monitor strict TIMOTHY's, renal function and electrolytes - We will avoid hypotension and nephrotoxins 3. Multiple infected decubitus ulcers/ cellulitis - ID is following - Patient remains on IV daptomycin 500 mg every 24 hours as recommended by ID - Local wound care as recommended by ID 4. Hypertension; stable without any medications; we will continue to monitor 5. Hyperlipidemia; continue with home dose of fenofibrate 6. CVA/TIA; remains on aspirin 81 mg daily 7. Chronic alcohol abuse with impending DTs - Patient remains on CIWA protocol - Counseling done and cessation of alcohol use 8. Chronic tobacco abuse; we will continue with nicotine patch as prescribed 9. DVT prophylaxis; subcu heparin CODE STATUS; full code Disposition; patient remains clinically stable; possible discharge to detention facility in next 24-48 hours pending clearance from ID Time with Patient: Greater than 30
--- NOTE | 2017-11-06 22:55 | P.PN ---
Subjective Progress Note Date: 11/06/17 This is an 82-year-old male patient who currently lives alone. He apparently fell on Monday and was laying on the floor until yesterday. He states that he was feeling dizzy and fell. He drank 3 beers that day but according to his daughter he states he drinks up to a 12 pack a day and has been doing this for many years. Patient states that he was laying on his left side and his left hand and arm were underneath him and he was unable to move it out. Patient was transported by EMS to [facility] emergency center for evaluation. His ammonia level was 23, blood sugar in the 130s total bilirubin 1.4, AST 90, applying phosphatase and ALT within normal limits, CK was 1323. BUN 15 creatinine 1.75 white count was at 12. Troponin 0.141, 0.113 , 0.089. Alcohol level was less than 10. Urinalysis was orange with 1+ bilirubin. Chest x-ray shows no acute abnormality but multiple old fractures. CAT scan of the head and cervical spine showed no acute fracture or dislocation of the cervical spine. No acute intracranial hemorrhage or midline shift. Moderate diffuse cerebral atrophy and advanced chronic small vessel ischemic change. New right parietal scalp hematoma. Patient has been afebrile since admission. He is not on antibiotics. His tetanus status was updated in the emergency center. Patient presents with multiple abrasions and wounds to his left mu-ism and cheek, left hand and wrist dorsal and palmar surfaces, multiple areas on his left chest and abdomen as well as left lower extremity. According to the patient's daughter patient has frequent falls although he will deny at. I discussed discharge planning with the patient and he is open to going to [facility] because he was there about 2 years ago after a hip fracture. Daughter is [employer] OFF[employer] and family are hoping that they can make arrangements so he does not return home. He has received 3 L of IV fluid, thiamine and CIWA protocol in place. He does state that he has not been eating much due to lack of appetite and has lost 15 lbs over the past couple months. He denies any nausea, vomiting, diarrhea. He denies chest pain , shortness of breath. He has a chronic productive cough. 11/03/2017 patient is feeling about the same as yesterday. Wonders if he gets to go home later today or tomorrow. We will redirect him that the plan at this point in time we'll refer him to go to [facility] once he is stable which will likely be early next week. He certainly is comfortable but has significant weakness. His multiple wounds are less painful 11/06/2017 reveals that the patient is having some improvement. He is much less uncomfortable. Is having difficulty with his dinner, the observer consequently cuts up his food to help eat his dinner. He is denying other acute symptoms his pain is improving looks forward to going to the rehab center. Objective - Vital Signs Vital signs: Vital Signs Temp 98.5 F 11/06/17 21:58 Pulse 88 11/06/17 21:58 Resp 16 11/06/17 21:58 BP 148/77 11/06/17 21:58 Pulse Ox 92 L 11/06/17 21:58 Intake & Output 11/06/17 11/06/17 11/07/17 06:59 18:59 06:59 Intake Total 590 50 Output Total 200 525 Balance 390 -475 Weight 66 kg 66 kg Intake: Intake, IV Titration 50 Amount DAPTOmycin 500 mg In 50 Sodium Chloride 0.9% 50 ml @ 100 mls/hr IVPB Q24H [facility] Rx#:[id number] Oral 590 Output: Urine 200 525 Other: Voiding Method Urinal Urinal Incontinent Incontinent # Voids 1 1 - Exam Gen: This is an 82-year-old. Patient is in bed and appears to be comfortable and in no acute distress. Patient does have pain with minimal movement secondary to significant wounds. HEENT: Head is normocephalic. Ulcer to the left mu-ism and left cheek with serous drainage. Pupils equal, round. Sclerae is anicteric. Conjunctiva somewhat pale. Mucous members of the mouth are moist. Dentures in place on the upper. No lesions noted. NECK: Supple. No JVD. No lymphadenopathy. No thyromegaly. LUNGS: Clear to auscultation. No wheezes or rhonchi. No intercostal retractions. HEART: Regular rate and rhythm. No murmur. ABDOMEN: Soft. Bowel sounds are present. No masses. No tenderness. EXTREMITIES: No pedal edema. No calf tenderness. Dorsalis pedis +1 bilaterally. Onychomycosis noted bilaterally. SKIN: There are multiple decubitus ulcers on the left chest wall and left abdomen with surrounding erythema and edema. Large hematoma to the left hand with significant edema to the wrist and hand. Decubitus ulcer to the left lateral knee. All wounds have surrounding erythema. None of them have significant drainage at this time. NEUROLOGICAL: Patient is awake, alert and oriented x2 - Labs CBC & Chem 7: 11/05/17 06:21 11/06/17 07:38 Labs: Abnormal Lab Results - Last 24 Hours (Table) 11/06/17 Range/Units 07:38 Sodium 136 L (137-145) mmol/L Creatinine 0.54 L (0.66-1.25) mg/dL Laboratory Results WBC 8.7 k/uL (3.8-10.6) 11/05/17 06:21 RBC 4.53 m/uL (4.30-5.90) 11/05/17 06:21 Hgb 14.1 gm/dL (13.0-17.5) 11/05/17 06:21 Hct 43.3 % (39.0-53.0) 11/05/17 06:21 MCV 95.7 fL (80.0-100.0) 11/05/17 06:21 MCH 31.1 pg (25.0-35.0) 11/05/17 06:21 MCHC 32.5 g/dL (31.0-37.0) 11/05/17 06:21 RDW 13.3 % (11.5-15.5) 11/05/17 06:21 Plt Count 303 k/uL (150-450) 11/05/17 06:21 Neutrophils % 82 % 11/05/17 06:21 Lymphocytes % 8 % 11/05/17 06:21 Monocytes % 7 % 11/05/17 06:21 Eosinophils % 2 % 11/05/17 06:21 Basophils % 0 % 11/05/17 06:21 Neutrophils # 7.1 k/uL (1.3-7.7) 11/05/17 06:21 Lymphocytes # 0.7 k/uL (1.0-4.8) L 11/05/17 06:21 Monocytes # 0.6 k/uL (0-1.0) 11/05/17 06:21 Eosinophils # 0.1 k/uL (0-0.7) 11/05/17 06:21 Basophils # 0.0 k/uL (0-0.2) 11/05/17 06:21 Sodium 136 mmol/L (137-145) L 11/06/17 07:38 Potassium 4.5 mmol/L (3.5-5.1) 11/06/17 07:38 Chloride 105 mmol/L (98-107) 11/06/17 07:38 Carbon Dioxide 25 mmol/L (22-30) 11/06/17 07:38 Anion Gap 6 mmol/L 11/06/17 07:38 BUN 12 mg/dL (9-20) 11/06/17 07:38 Creatinine 0.54 mg/dL (0.66-1.25) L 11/06/17 07:38 Est GFR (CKD-EPI)AfAm >90 (>60 ml/min/1.73 sqM) 11/06/17 07:38 Est GFR (CKD-EPI)NonAf >90 (>60 ml/min/1.73 sqM) 11/06/17 07:38 Glucose 90 mg/dL (74-99) 11/06/17 07:38 POC Glucose (mg/dL) 135 mg/dL (75-99) H 11/04/17 16:17 POC Glu [employer] ID Faye Borges 11/04/17 16:17 Plasma Lactic Acid [place] 2.0 mmol/L (0.7-2.0) 11/01/17 13:40 Calcium 9.0 mg/dL (8.4-10.2) 11/06/17 07:38 Magnesium 2.4 mg/dL (1.6-2.3) H 11/01/17 13:40 Total Bilirubin 1.4 mg/dL (0.2-1.3) H 11/01/17 13:40 AST 98 U/L (17-59) H 11/01/17 13:40 ALT 51 U/L (21-72) 11/01/17 13:40 Alkaline Phosphatase 71 U/L (38-126) 11/01/17 13:40 Ammonia 23 umol/L (<30) 11/01/17 13:40 Creatine Kinase 201 U/L (55-170) H 11/05/17 06:21 Total Creatine Kinase 695 U/L (55-170) H 11/02/17 01:42 CK-MB (CK-2) 4.0 ng/mL (0.0-2.4) H* 11/02/17 01:42 CK-MB (CK-2) Rel Index 0.6 11/02/17 01:42 Troponin I 0.089 ng/mL (0.000-0.034) H* 11/02/17 01:42 Total Protein 6.5 g/dL (6.3-8.2) 11/01/17 13:40 Albumin 3.8 g/dL (3.5-5.0) 11/01/17 13:40 Lipase 37 U/L (23-300) 11/01/17 13:40 Urine Color [place] 11/01/17 15:10 Urine Appearance Cloudy (Clear) 11/01/17 15:10 Urine pH 5.5 (5.0-8.0) 11/01/17 15:10 Ur Specific [place] 1.020 (1.001-1.035) 11/01/17 15:10 Urine Protein 1+ (Negative) H 11/01/17 15:10 Urine Glucose (UA) Negative (Negative) 11/01/17 15:10 Urine Ketones Negative (Negative) 11/01/17 15:10 Urine Blood Negative (Negative) 11/01/17 15:10 Urine Nitrite Negative (Negative) 11/01/17 15:10 Urine Bilirubin 1+ (Negative) H 11/01/17 15:10 Urine Urobilinogen 2.0 mg/dL (<2.0) 11/01/17 15:10 Ur Leukocyte Esterase Negative (Negative) 11/01/17 15:10 Urine RBC <1 /hpf (0-5) 11/01/17 15:10 Urine WBC 2 /hpf (0-5) 11/01/17 15:10 Ur Squamous Epith Cells 1 /hpf (0-4) 11/01/17 15:10 Hyaline Casts 35 /lpf (0-2) H 11/01/17 15:10 Urine Mucus Moderate /hpf (None) H 11/01/17 15:10 Serum Alcohol <10 mg/dL 11/01/17 13:40 Microbiology 11/02/17 11:20 Hip - Left Gram Stain - Final 11/02/17 11:20 Hip - Left Wound Culture - Final Assessment and Plan (1) Renal insufficiency Current Visit: Yes Status: Acute Code(s): N28.9 - DISORDER OF KIDNEY AND URETER, UNSPECIFIED SNOMED Code(s): 605656955 (2) Fall Narrative/Plan: the patient's worsening status and concerns to her ability to care for himself. The patient is evidence of the multiple wounds that developed from his fall and being unable to buy his own power get up off the floor. We'll place mupirocin over the wounds to the face as well as to the chest wall and abdomen area. To the left hand and palmar surface Silvadene will be applied will also be applied to the ulceration to the left leg and wrapped and place nonstick with gauze. Antibiotic therapy originally was considered with vancomycin however with his elevated creatinine his changed to daptomycin while cultures are pending. We' ll obtain a whole-body bone scan to evaluate the areas of pressure to determine if there is potential underlying bony infection. Patient seems to responding well to antibiotic therapy at this time. He is somewhat comfortable. Waiting to determine what her overall actions will be once cultures are been finalized. Continue local wound care at this point in time with the mupirocin to the injuries and ulceration with eschar to the face and chest wall. To the eschars to the left lateral thigh lower left leg and right knee area Silvadene is applied to these areas. Always presser ulcerations are with eschar and are unstageable at this time. They were all present on admission. Bone scan is pending to determine if there is any deeper infection at this time. 11/06/2017 patient is deathly more comfortable. The wound care is reviewed with the nursing staff and they're having no difficulties with it and the patient is deathly more comfortable. Will be transferred to rehab tomorrow to receive physical therapy and wound care. The bone scan fails to reveal evidence of underlying osteomyelitis to the sites but has had extensive trauma to the wrist but x-ray fails reveal evidence of fracture. Cultures reviewed polymicrobial possibly contaminated with stool. The patient is showing marked improvement at this time and consequently will transition to oral Augmentin which can be continued at the extended care facility with local wound care. Current Visit: Yes Status: Acute Code(s): W19.XXXA - UNSPECIFIED FALL, INITIAL ENCOUNTER SNOMED Code(s): 7979106
[2017-11-07 04:26] LABS: Appearance,Urine Clear (Clear); Bilirubin,Urine Negative (Negative); Blood,Urine Negative (Negative); Color,Urine Light Yellow; Glucose,Urine (UA) Negative (Negative); Ketones,Urine Negative (Negative); Leukocyte Esterase,Urine Negative (Negative); Nitrite,Urine Negative (Negative); PH, Urine 7.5 (5.0-8.0); Protein,Urine Negative (Negative); Specific Gravity,Urine 1.008 (1.001-1.035); Urobilinogen,Urine <2.0 mg/dL (<2.0)
[2017-11-07] MEDS: SODIUM CHLORIDE 0.9% 1,000 ML IV SCH (06:06)
[2017-11-07] MEDS: FENOFIBRATE 160 MG TAB PO SCH (07:41)
[2017-11-07] MEDS: AMOXIC-POT CLAV 875-125MG 1 EACH TAB PO SCH ×2 (07:41→21:10)
[2017-11-07] MEDS: ASPIRIN 81 MG PO SCH (07:41)
[2017-11-07] MEDS: CITALOPRAM HYDROBROMIDE 10 MG TAB PO SCH (07:41)
[2017-11-07] MEDS: HEPARIN SODIUM,PORCINE 5,000 UNIT/ML 1 ML VIAL SQ SCH ×2 (07:41→21:10)
[2017-11-07] MEDS: LISINOPRIL 10 MG TAB PO SCH (07:41)
[2017-11-07] MEDS: NICOTINE 21MG/24HR PATCH TRANSDERM SCH (07:42)
[2017-11-07 07:46] LABS: Basophils % (A) 0 %; Eosinophils # (A) 0.2 k/uL (0-0.7); Eosinophils % (A) 3 %; HCT 37.2 % (39.0-53.0); HGB 12.3 gm/dL (13.0-17.5); Lymphocytes # (A) 1.1 k/uL (1.0-4.8); Lymphocytes % (A) 14 %; MCH 30.8 pg (25.0-35.0); MCV 93.5 fL (80.0-100.0); Monocytes # (A) 0.8 k/uL (0-1.0); Monocytes % (A) 11 %; Neutrophils # (A) 5.4 k/uL (1.3-7.7); Neutrophils % (A) 70 %; Platelet Count 343 k/uL (150-450); RBC 3.98 m/uL (4.30-5.90); RDW 13.2 % (11.5-15.5); WBC 7.7 k/uL (3.8-10.6)
[2017-11-07 07:53] LABS: Anion Gap 4 mmol/L; Blood Urea Nitrogen 16 mg/dL (9-20); Calcium 9.3 mg/dL (8.4-10.2); Carbon Dioxide 27 mmol/L (22-30); Chloride 105 mmol/L (98-107); Glucose 86 mg/dL (74-99); Potassium 4.3 mmol/L (3.5-5.1); Sodium 136 mmol/L (137-145)
[2017-11-07] MEDS: SILVER sulfADIAZINE Cream 400 GM 1 APPLIC APPLIC TOPICAL SCH (08:31)
[2017-11-07] MEDS: MUPIROCIN 2% OINT 22 GM TUBE TOPICAL SCH ×5 (08:32→21:10)
[2017-11-07] MEDS: THIAMINE 100 MG TAB PO SCH ×2 (12:14→18:20)
[2017-11-07] MEDS: MULTIVITAMINS, THERA 1 EACH TAB PO SCH (12:14)
[2017-11-07] MEDS: ASCORBIC ACID 500 MG TAB PO SCH (12:14)
--- NOTE | 2017-11-07 16:11 | P.DS ---
Providers Date of admission: 11/01/17 15:52 Expected date of discharge: 11/07/17 Attending physician: John Jaquez Consults: 11/01/17 15:54 Consult Physician Routine Consulting Provider: Avila Wagner Consult Reason/Comments: Pressure sore evaluation Do you want consulting provider notified?: Yes Primary care physician: [facility] Course: Discharge diagnosis 1. Acute Rhabdomyolysis due to lying on the floor for prolonged period of time. - CPK level improved with IV hydration. 2. Acute kidney injury. Resolved. 3. Multiple infected decubitus ulcers/ cellulitis - Patient was on IV daptomycin 500 mg every 24 hours as recommended by ID - Local wound care as recommended by ID. On mupirocin ointment as well as Silvadene cream. - Antibiotics changed to Augmentin orally and continue with dressing changes. 4. Hypertension; controlled. 5. Hyperlipidemia; continue with home dose of fenofibrate 6. CVA/TIA; remains on aspirin 81 mg daily 7. Chronic alcohol abuse with impending DTs - Counseling done and cessation of alcohol use 8. Chronic tobacco abuse; we will continue with nicotine patch as prescribed 9. DVT prophylaxis; subcu heparin CODE STATUS; full code Hospital course This is a 82-year-old male history of CVA, alcoholism who apparently became weak and fell on the floor where he remained for 2 days since he was not able to get up. He was found lying on the floor on his left side. Is brought in by EMS for evaluation. He is found to have multiple pressure sores 11/04/2017 Patient is seen and evaluated in the room at bedside; denies any new complaints of pain or shortness of breath; patient questions if he is going to be discharged home; I did discuss possible discharge to skilled rehab as planned with patient and family; we did discuss bone scan results which show some changes and distal forearm and wrist possibly posttraumatic versus infection; MRI has been recommended; infection diseases following and we await further recommendations from their service 11/05/2017 Patient is seen and evaluated in the room with family members at bedside; family requesting transfer of patient to [facility] for skilled rehab; we did discuss treatment plan and need for clearance for discharge by infection disease with switch to oral antibiotics versus IV antibiotic treatment prior to discharge to skilled rehab, patient remains on IV daptomycin 500 mg every 24 hours; family understands and is agreeable; patient's labs remained stable with a white blood count within normal limit and CK down to 201 from 695; we will plan to decrease IV fluids; shouldn't is advised to increase oral fluid intake; we'll continue to monitor electrolytes, TIMOTHY's and renal function. Possible discharge to skilled rehab in next 24-48 hours pending clearance from ID 11/06/2017 Patient denied any complaints of chest pain or shortness of breath. Feels generally weak. Wound dressing changes. Otherwise patient is being continued on daptomycin IV currently awaiting final ID recommendations. Patient will need to be transferred to rehab at shelter. Otherwise no fever no chills. CPK level is trending down. No acute overnight issues. All other review of systems negative except the above 11/07/2017 Patient denied any new complaints today. Daptomycin IV has been discontinued and changed to Augmentin as per ID recommendations. Patient will be continued on PT OT and dressing changes and the stable to be discharged to rehab. PHYSICAL EXAMINATION: Patient is lying in the bed comfortably, no acute distress, awake alert and oriented.. HEENT: Normocephalic. Neck is supple. Pupils reactive. Nostrils clear. Oral cavity is moist. Ears reveal no drainage. Neck reveals no JVD, carotid bruits, or thyromegaly. CHEST EXAMINATION: Trachea is central. Symmetrical expansion. Lung guerin clear to auscultation and percussion. CARDIAC: Normal S1, S2 with no gallops. No murmurs ABDOMEN: Soft. Bowel sounds normal. No organomegaly. No abdominal bruits. Extremities: reveal no edema. No clubbing or cyanosis Neurologically awake, alert, oriented x3 with well-coordinated movements. No focal deficits noted Skin: Integumentary: There are multiple decubitus ulcers on the left chest wall and left abdomen with surrounding erythema. Improved hematoma on the left hand and wrist.. Decubitus ulcer to the left lateral knee. No purulent discharge. Psychiatric: Coperative. Nonsuicidal Musculoskeletal: No joint swelling or deformity. Normal range of motion. Vital Signs - 24 hr 11/06/17 11/07/17 21:58 06:54 Temperature 98.5 F 97.6 F Pulse Rate [ 88 69 Right Pulse Oximetery] Respiratory 16 16 Rate Blood Pressure 148/77 144/89 [Right Arm] O2 Sat by Pulse 92 L 94 L Oximetry Total time taken greater than 35 minutes including 18 minutes for counseling and coordination of care. Patient Condition at Discharge: Serious Plan - Discharge Summary Discharge Rx Participant: No New Discharge Prescriptions: New Amoxic-Pot Clav 875-125Mg [Augmentin 875-125] 1 each PO Q12HR 8 Days #16 tab Multivitamins, Thera [Multivitamin (formulary)] 1 each PO DAILY@1200 #30 tab Mupirocin 2% Oint [Bactroban 2% Oint] 1 applic TOPICAL BID #1 applic SILVER sulfADIAZINE Cream [Silvadene 1% Cream] 1 applic TOPICAL DAILY #1 tube Continue Cholecalciferol [Vitamin D3] 1,000 unit PO DAILY@1200 Ascorbic Acid [Vitamin C] 500 mg PO DAILY@1200 Lisinopril [Zestril] 10 mg PO DAILY Citalopram Hydrobromide [CeleXA] 30 mg PO DAILY Thiamine HCl [Vitamin B-1] 100 mg PO DAILY Fenofibrate Nanocrystallized [Tricor] 145 mg PO DAILY Aspirin EC [Ecotrin Low Dose] 81 mg PO DAILY Discharge Medication List Ascorbic Acid [Vitamin C] 500 mg PO DAILY@1200 04/16/14 [History] Cholecalciferol [Vitamin D3] 1,000 unit PO DAILY@1200 04/16/14 [History] Citalopram Hydrobromide [CeleXA] 30 mg PO DAILY 04/16/14 [History] Fenofibrate Nanocrystallized [Tricor] 145 mg PO DAILY 04/16/14 [History] Lisinopril [Zestril] 10 mg PO DAILY 04/16/14 [History] Thiamine HCl [Vitamin B-1] 100 mg PO DAILY 04/16/14 [History] Aspirin EC [Ecotrin Low Dose] 81 mg PO DAILY 11/01/17 [History] Amoxic-Pot Clav 875-125Mg [Augmentin 875-125] 1 each PO Q12HR 8 Days #16 tab [Rx] Multivitamins, Thera [Multivitamin (formulary)] 1 each PO DAILY@1200 #30 tab [Rx] Mupirocin 2% Oint [Bactroban 2% Oint] 1 applic TOPICAL BID #1 applic 11/07/17 [ Rx] SILVER sulfADIAZINE Cream [Silvadene 1% Cream] 1 applic TOPICAL DAILY #1 tube [Rx] Follow up Appointment(s)/Referral(s): Contreras Roberts DO [Primary Care Provider] - 1-2 days Patient Instructions/Handouts: Silver Sulfadiazine (On the skin), Mupirocin ( On the skin), Amoxicillin/Clavulanate Potassium (By mouth), Multivitamins, Adult Formula (By mouth), Dehydration (DC), Rhabdomyolysis (DC), Fall Prevention for Older Adults (DC) Activity/Diet/Wound Care/Special Instructions: ECF on discharge Diet: Consistent Carb Wound Care per Dr. Wagner: Silvadene Daily to Left Hand dorsum and palmar, Left leg knee and thigh ulcers, Right leg ulcers. Cover with nonstick and rolled gauze. Bactroban BID to sites of injury to left chest wall and abdomen. Bactroban TID to wounds on left side of face (does not need to be covered). Discharge Disposition: TRANSFER TO SNF/ECF
--- NOTE | 2017-11-07 23:20 | P.PN ---
Subjective Progress Note Date: 11/07/17 Principal diagnosis: Fall Multiple decubitus ulcers on left side Rhabdomyolysis Acute renal injury Chronic alcohol use This is a 82-year-old male history of CVA, alcoholism who apparently became weak and fell on the floor where he remained for 2 days since he was not able to get up. He was found lying on the floor on his left side. Is brought in by EMS for evaluation. He is found to have multiple pressure sores 11/04/2017 Patient is seen and evaluated in the room at bedside; denies any new complaints of pain or shortness of breath; patient questions if he is going to be discharged home; I did discuss possible discharge to skilled rehab as planned with patient and family; we did discuss bone scan results which show some changes and distal forearm and wrist possibly posttraumatic versus infection; MRI has been recommended; infection diseases following and we await further recommendations from their service 11/05/2017 Patient is seen and evaluated in the room with family members at bedside; family requesting transfer of patient to [facility] for skilled rehab; we did discuss treatment plan and need for clearance for discharge by infection disease with switch to oral antibiotics versus IV antibiotic treatment prior to discharge to skilled rehab, patient remains on IV daptomycin 500 mg every 24 hours; family understands and is agreeable; patient's labs remained stable with a white blood count within normal limit and CK down to 201 from 695; we will plan to decrease IV fluids; shouldn't is advised to increase oral fluid intake; we'll continue to monitor electrolytes, TIMOTHY's and renal function. Possible discharge to skilled rehab in next 24-48 hours pending clearance from ID 11/06/2017 Patient denied any complaints of chest pain or shortness of breath. Feels generally weak. Wound dressing changes. Otherwise patient is being continued on daptomycin IV currently awaiting final ID recommendations. Patient will need to be transferred to rehab at [facility]. Otherwise no fever no chills. CPK level is trending down. No acute overnight issues. 11/07/2017 Patient denied any complaints of chest pain or shortness of breath. Antibiotics have been changed to Augmentin twice daily. Otherwise patient is stable to be discharged to rehab. No other acute overnight issues. All other review of systems negative except the above Current medications reviewed. Objective - Vital Signs Vital signs: Vital Signs Temp 97.0 F L 11/07/17 21:24 Pulse 67 11/07/17 21:24 Resp 15 11/07/17 21:24 BP 150/71 11/07/17 21:24 Pulse Ox 94 L 11/07/17 21:24 Intake & Output 11/07/17 11/07/17 11/08/17 06:59 18:59 06:59 Intake Total 50 Output Total 150 350 175 Balance -150 -350 -125 Intake: Oral 50 Output: Urine 150 350 175 Other: Voiding Method Urinal Urinal Incontinent Incontinent # Voids 2 - Exam PHYSICAL EXAMINATION: Patient is lying in the bed comfortably, no acute distress, awake alert and oriented.. HEENT: Normocephalic. Neck is supple. Pupils reactive. Nostrils clear. Oral cavity is moist. Ears reveal no drainage. Neck reveals no JVD, carotid bruits, or thyromegaly. CHEST EXAMINATION: Trachea is central. Symmetrical expansion. Lung guerin clear to auscultation and percussion. CARDIAC: Normal S1, S2 with no gallops. No murmurs ABDOMEN: Soft. Bowel sounds normal. No organomegaly. No abdominal bruits. Extremities: reveal no edema. No clubbing or cyanosis Neurologically awake, alert, oriented x3 with well-coordinated movements. No focal deficits noted Skin: Integumentary: There are multiple decubitus ulcers on the left chest wall and left abdomen with surrounding erythema and edema. Improved. Left hand is wrapped and edema improved. Decubitus ulcer to the left lateral knee. All wounds have surrounding erythema with purulent slug.... Psychiatric: Coperative. Nonsuicidal Musculoskeletal: No joint swelling or deformity. Normal range of motion. - Labs CBC & Chem 7: 11/07/17 07:16 11/07/17 07:16 Labs: Abnormal Lab Results - Last 24 Hours (Table) 11/07/17 11/07/17 Range/Units 07:16 07:16 RBC 3.98 L (4.30-5.90) m/uL Hgb 12.3 L (13.0-17.5) gm/dL Hct 37.2 L (39.0-53.0) % Sodium 136 L (137-145) mmol/L Assessment and Plan Assessment: 1. Acute Rhabdomyolysis due to lying on the floor for prolonged period of time. - Clinically improving; we was continued with IV fluid hydration lactated Ringer at 100 mL an hour. Currently on normal saline at 50 mL per hour. - Monitor total CK periodically; slowly trending down 2. Acute kidney injury - Resolved with IV fluid hydration off lactated Ringer at 100 mL an hour; decrease IV fluids to 50 mL an hour - We will continue to monitor strict TIMOTHY's, renal function and electrolytes - We will avoid hypotension and nephrotoxins 3. Multiple infected decubitus ulcers/ cellulitis - ID is following - Patient remains on IV daptomycin 500 mg every 24 hours as recommended by ID - Local wound care as recommended by ID 4. Hypertension; stable without any medications; we will continue to monitor 5. Hyperlipidemia; continue with home dose of fenofibrate 6. CVA/TIA; remains on aspirin 81 mg daily 7. Chronic alcohol abuse with impending DTs - As needed [facility] protocol - Counseling done and cessation of alcohol use 8. Chronic tobacco abuse; we will continue with nicotine patch as prescribed 9. DVT prophylaxis; subcu heparin CODE STATUS; full code Disposition; patient remains clinically stable; possible discharge to [facility] facility in next 24-48 hours when bed is available. Time with Patient: Greater than 30
[2017-11-08] MEDS: SODIUM CHLORIDE 0.9% 1,000 ML IV SCH (04:16)
[2017-11-08 04:55] VITALS: BP 158/74; PULSE 70; RESP 16; TEMP 97.4
[2017-11-08] MEDS: ASPIRIN 81 MG PO SCH (08:16)
[2017-11-08] MEDS: LISINOPRIL 10 MG TAB PO SCH (08:16)
[2017-11-08] MEDS: CITALOPRAM HYDROBROMIDE 10 MG TAB PO SCH (08:17)
[2017-11-08] MEDS: AMOXIC-POT CLAV 875-125MG 1 EACH TAB PO SCH (08:17)
[2017-11-08] MEDS: HEPARIN SODIUM,PORCINE 5,000 UNIT/ML 1 ML VIAL SQ SCH (08:17)
[2017-11-08] MEDS: NICOTINE 21MG/24HR PATCH TRANSDERM SCH (08:17)
[2017-11-08] MEDS: FENOFIBRATE 160 MG TAB PO SCH (08:17)
[2017-11-08] MEDS: SILVER sulfADIAZINE Cream 400 GM 1 APPLIC APPLIC TOPICAL SCH (08:18)
[2017-11-08] MEDS: MUPIROCIN 2% OINT 22 GM TUBE TOPICAL SCH ×2 (08:18)
== END 2017-11-08 10:49 | DRG 683 ==
LOC: EC 12:05 → 6SEL 15:52 → 5MS5E 11-05 13:54
PROVIDERS: ADMIT Hospitalist; ATTEND Hospitalist
DX: N17.0 Acute kidney failure with tubular necrosis (principal); M62.82 Rhabdomyolysis; L03.211 Cellulitis of face; L03.116 Cellulitis of left lower limb; E78.5 Hyperlipidemia, unspecified; F10.20 Alcohol dependence, uncomplicated; F17.210 Nicotine dependence, cigarettes, uncomplicated; F32.9 Major depressive disorder, single episode, unspecified; I10 Essential (primary) hypertension; J44.9 Chronic obstructive pulmonary disease, unspecified; L89.890 Pressure ulcer of other site, unstageable; L89.810 Pressure ulcer of head, unstageable; L89.220 Pressure ulcer of left hip, unstageable; M15.9 Polyosteoarthritis, unspecified; R29.6 Repeated falls; S00.03XA Contusion of scalp, initial encounter; S20.312A Abrasion of left front wall of thorax, initial encounter; Z79.82 Long term (current) use of aspirin; Z79.899 Other long term (current) drug therapy; Z82.49 Family history of ischemic heart disease and other diseases of the circulatory system; Z86.73 Personal history of transient ischemic attack (TIA), and cerebral infarction without residual deficits; Z87.442 Personal history of urinary calculi; R40.2362 Coma scale, best motor response, obeys commands, at arrival to emergency department; R40.2142 Coma scale, eyes open, spontaneous, at arrival to emergency department; R40.2252 Coma scale, best verbal response, oriented, at arrival to emergency department; Z60.2 Problems related to living alone; Z87.81 Personal history of (healed) traumatic fracture
CPT/HCPCS: 36415; 70450; 71045; 72125; 78315; 80048; 80053; 80320; 81001; 81003; 82140; 82550; 82553; 83605; 83690; 83735; 84132; 84484; 85025; 87070; 87205; 90471; 90715; 93005; 96360; 96361; 99291

== ENCOUNTER 2018-05-06 15:12 | Emergency (ER) | payer MEDICARE ==
[2018-05-06 15:27] VITALS: TEMP 98.2
[2018-05-06] MEDS ORDERED: Acetaminophen-Codeine 300-30mg TAB PO STA (15:54)
--- NOTE | 2018-05-06 17:56 | CT ---
EXAMINATION TYPE: CT brain zamzam wo con DATE OF EXAM: 05/06/2018 COMPARISON: 11/01/2017 HISTORY: Fall injury CT DLP: 1280.1 mGycm, Automated exposure control for dose reduction was used. CONTRAST: Patient injected with 0 mL of Isovue 300. CT of the brain is performed utilizing 3 mm thick sections through the posterior fossa and 3 mm thick sections through the remaining calvarium. Study is performed within 24 hours of arrival to the hospital. No abnormal hyperdensity is present to suggest an acute intracranial hemorrhage. No mass lesion is evident. No acute infarcts are evident. Periventricular white matter hypodensity is present, likely on the ba sis of chronic white matter ischemic changes. Ventricles and sulci are prominent for the patient age. Paranasal sinuses and mastoid air cells within the [id number] are clear. IMPRESSIONS: 1. Atrophy with periventricular white matter ischemic changes. CT cervical spine. COMPARISON: None CT of the cervical spine is performed in the axial plane at 2 mm thick sections. Reconstructed image s in the coronal, and sagittal plane are reviewed on the computer. No acute fractures are evident. Grade 1 spondylolisthesis of C3 anterior on C4 is present. Loss of disc height is present throughout the cervical spine but especially notable C3-4, C4-5, C5-6, C6-7. Vertebral body heights are preserved. No spinal canal stenosis is evident. Some foraminal narrowing is present from uncovertebral joint hypertrophy. IMPRESSIONS: 1. Degenerative disc changes. 2. Uncovertebral joint hypertrophy with some foraminal narrowing present. 3. Grade 1 spondylolisthesis of C3 anteriorly on C4. 4. No acute fractures.
--- NOTE | 2018-05-06 19:26 | XR ---
EXAMINATION TYPE: XR hand complete LT DATE OF EXAM: 05/06/2018 COMPARISON: 11/02/2017 HISTORY: Pain TECHNIQUE: Left hand is examined in 3 projections. Best possible imaging is performed. FINDINGS: There are oblique fractures through the mid diaphysis proximal phalanx left thumb, a transv erse fracture at the base of the first metacarpal, an oblique fracture extending towards the articula r surface of the proximal phalanx index finger. Structures are osteopenic. IMPRESSION: 1. Comminuted transverse fracture proximal metaphysis first metacarpal. 2. Oblique fracture proximal diaphysis thumb. 3. Oblique fracture which may have extension to the articular surface in the proximal phalanx index f raoul.
--- NOTE | 2018-05-06 19:28 | XR ---
EXAMINATION TYPE: XR knee complete LT DATE OF EXAM: 05/06/2018 COMPARISON: None HISTORY: Pain following fall TECHNIQUE: Three-view left knee FINDINGS: There is a large joint effusion. There is a fracture through the superior third of the quinteros lla. No additional fractures are identified. Joint spaces appear preserved. IMPRESSION: 1. Transverse fracture proximal patella. 2. Large joint effusion
--- NOTE | 2018-05-06 19:31 | XR ---
EXAMINATION TYPE: XR shoulder complete RT DATE OF EXAM: 05/06/2018 COMPARISON: NONE HISTORY: Pain TECHNIQUE: Shoulder examined in 3 views FINDINGS: The humeral head articulates with the glenoid. There is loss of the joint space compatible with osteo arthritic degenerative change. No acute fractures are within the [id number]. The acromio-clavicular junction is normal. No acute fractures or dislocations are evident. A follow up study can be performed 7-10 days from acute trauma for continued pain. IMPRESSION: 1. Moderate osteoarthritic degenerative change right shoulder
--- NOTE | 2018-05-06 19:41 | ED ---
General Adult HPI - General Chief complaint: Fall Stated complaint: Fall Time Seen by Provider: 05/06/18 15:45 Source: patient, RN notes reviewed Mode of arrival: wheelchair Limitations: no limitations - History of Present Illness Initial comments: 83-year-old male presents to the emergency department for a chief complaint of fall occurring about one hour prior to arrival. Patient was walking and his cowboy boots when he tripped over the edge of the carpet and fell forward. Patient did apparently hit his head and has a very small superficial abrasion noted to the ridge of the nose from his glasses. Patient has left hand pain, right shoulder pain and left knee pain. Patient cannot currently ambulate on the left knee. [facility] be provided. Patient denies any neck pain. He denies any back pain. No other injuries. He denies any headedness or dizziness preceding the fall. No loss of consciousness or blood thinners.Patient has no other complaints at this time including shortness of breath, chest pain, abdominal pain, nausea or vomiting, headache, or visual changes. - Related Data Home Medications Medication Instructions Recorded Confirmed Ascorbic Acid [Vitamin C] 500 mg PO DAILY 04/16/14 05/06/18 Cholecalciferol [Vitamin D3] 2,000 unit PO DAILY 04/16/14 05/06/18 Citalopram Hydrobromide [CeleXA] 20 mg PO DAILY 04/16/14 05/06/18 Lisinopril [Zestril] 10 mg PO DAILY 04/16/14 05/06/18 Thiamine HCl [Vitamin B-1] 100 mg PO DAILY 04/16/14 05/06/18 Aspirin EC [Ecotrin Low Dose] 81 mg PO DAILY 11/01/17 05/06/18 Docusate [Colace] 100 mg PO DAILY 05/06/18 05/06/18 Fenofibrate,Micronized 134 mg PO DAILY 05/06/18 05/06/18 [Fenofibrate] HYDROcodone/APAP 7.5-325MG [[place] 1 tab PO Q6H PRN 05/06/18 05/06/18 7.5-325] Ibuprofen [Advil] 200 mg PO BID 05/06/18 05/06/18 Multivitamins, Thera [Multivitamin 1 tab PO DAILY 05/06/18 05/06/18 (formulary)] Allergies Allergy/AdvReac Type Severity Reaction Status Date / Time adhesive tape Allergy Rash/Hives Verified 05/06/18 16:13 Review of Systems ROS Statement: Those systems with pertinent positive or pertinent negative responses have been documented in the HPI. ROS Other: All systems not noted in ROS Statement are negative. Past Medical History Past Medical History: CVA/TIA, Hyperlipidemia, Hypertension, Osteoarthritis (OA) Additional Past Medical History / Comment(s): tia, alcoholic, freq falls. past lt humeral/lt femoral fx, kidney stone 40 plus years ago. at times tremors, irreg sleep apttern History of Any Multi-Drug Resistant Organisms: None Reported Past Surgical History: Hernia Repair, Orthopedic Surgery Additional Past Surgical History / Comment(s): SHOULDER LEFT 25 YEARS AGO, lt hip hemiarthroplasty Past Anesthesia/Blood Transfusion Reactions: No Reported Reaction Past Psychological History: No Psychological Hx Reported Smoking Status: Current every day smoker - Past Family History Mother Family Medical History: Hypertension Father Additional Family Medical History / Comment(s): in [facility] when pt was 11 years old General Exam - General Exam Comments Initial Comments: Left knee: Edema without erythema noted to the left anterior knee. Generalized anterior knee tenderness. Patient has about 20 flexion of the left knee. Capillary refill less than 2 seconds in the left lower extremity. DP pulse 2+ in the left foot. No significant pain or edema noted in the left calf. Left hand: Patient has a ecchymosis with edema noted to the proximal phalanx of the left thumb as well as proximal phalanx of the left second finger. With digit noted to be held in a flexed position due to previous injury. Patient has limited flexion of first and second digits of left hand. Capillary refill less than 2 seconds in all digits of the left hand. Radial pulse 2+. Right shoulder: Patient does have full range of motion of the right shoulder including flexion and abduction but does have some pain with this. Radial pulse 2+ in the right upper extremity. Capillary refill less than 2 seconds. No ecchymosis noted to the right shoulder. No edema to the right upper extremity. Limitations: no limitations General appearance: alert, in no apparent distress Head exam: Present: atraumatic, normocephalic, normal inspection Eye exam: Present: normal appearance, PERRL, EOMI. Absent: scleral icterus, conjunctival injection, periorbital swelling ENT exam: Present: normal exam, normal oropharynx, mucous membranes moist, TM's normal bilaterally, normal external ear exam, other (small 1 cm superficial abrasion noted the the left side of the bridge of the nose) Neck exam: Present: normal inspection, full ROM. Absent: tenderness, meningismus, lymphadenopathy Respiratory exam: Present: normal lung sounds bilaterally. Absent: respiratory distress, wheezes, rales, rhonchi, stridor Cardiovascular Exam: Present: regular rate, normal rhythm, normal heart sounds. Absent: systolic murmur, diastolic murmur, rubs, gallop, clicks Neurological exam: Present: alert, oriented X3, CN II-XII intact, other (GCS 15) Psychiatric exam: Present: normal affect, normal mood Course Vital Signs 05/06/18 05/06/18 15:24 18:26 Temperature 98.2 F Pulse Rate 75 76 Respiratory 18 16 Rate Blood Pressure 139/79 122/66 O2 Sat by Pulse 97 96 Oximetry Procedures - Orthopedic Splinting/Casting Injury #1 Side: left Upper Extremity Injury Location: hand Upper Extremity Immobilizer: volar splint, thumb spica Additional Comments: Neurovascular status intact after splint applied Medical Decision Making - Medical Decision Making 83-year-old male presents to the emergency department for a chief complaint of fall occurring about one hour prior to arrival. Patient tripped over the carpet , no loss of consciousness. He did hit his head but no blood thinners. CT brain and C-spine negative for acute process. As documented. Hand x-ray did show 3 different fractures. There is a comminuted transverse fracture of the proximal metaphysis of the first metacarpal. A fracture of the proximal diaphysis thumb. Oblique fracture of the proximal phalanx index finger. X-ray of the left knee did show a transverse fracture of the proximal patella. It did take a considerable amount of time to receive the x-ray reports which patient and family member were both upset about. However I did discuss that it was important to have the reports before discharge so I could make sure to address every injury. Patient was splinted in a thumb spica and volar short arm for these hand fractures. This was difficult as patient unable to flex or extend fingers and fourth digit held in a flexed position with significant pain with any type of extension. However splint was applied. Knee immobilizer applied to the left lower extremity for the patellar fracture. Patient saw Dr. Maier for a previous hand surgery on the fourth digit and would like to see him again. I did also give him the phone number to Dr. Banuelos as he is on- call. Patient was given Tylenol 3 as he tolerates that well. Patient currently staying at [facility] and will have assistance with ambulation. Disposition Clinical Impression: Hand fracture, Patella fracture Disposition: HOME SELF-CARE Condition: Good Instructions (If sedation given, give patient instructions): Hand Fracture (ED) , Patellar Fracture (ED) Additional Instructions: Please follow-up with Dr. Banuelos or Dr. Maier for orthopedics. Please return here to the emergency department if you have any worsening symptoms. Is patient prescribed a controlled substance at d/c from ED?: No Referrals: Contreras Roberts DO [Primary Care Provider] - 1-2 days Daniel Maier DO [Medical Doctor] - 1-2 days Noel Banuelos MD [STAFF PHYSICIAN] - 1-2 days Time of Disposition: 19:40
[2018-05-06] MEDS ORDERED: ACET/COD 300 MG/30 MG STARTER PACK 6 TAB BTL PO STA (19:43)
[2018-05-06 20:18] VITALS: BP 123/82; PULSE 75; RESP 18
== END 2018-05-06 20:11 | disposition home or self-care (01) ==
LOC: EC 15:12
DX: S62.292A Other fracture of first metacarpal bone, left hand, initial encounter for closed fracture (principal); S62.301A Unspecified fracture of second metacarpal bone, left hand, initial encounter for closed fracture; S82.032A Displaced transverse fracture of left patella, initial encounter for closed fracture; S00.31XA Abrasion of nose, initial encounter; M25.511 Pain in right shoulder; E78.5 Hyperlipidemia, unspecified; I10 Essential (primary) hypertension; M19.90 Unspecified osteoarthritis, unspecified site; R29.6 Repeated falls; F17.200 Nicotine dependence, unspecified, uncomplicated; Z91.09 Other allergy status, other than to drugs and biological substances; Z79.1 Long term (current) use of non-steroidal anti-inflammatories (NSAID); Z79.82 Long term (current) use of aspirin; Z79.899 Other long term (current) drug therapy; Z96.642 Presence of left artificial hip joint; Z98.890 Other specified postprocedural states; W18.09XA Striking against other object with subsequent fall, initial encounter; Y93.01 Activity, walking, marching and hiking
CPT/HCPCS: 73030; 73130; 73562; 72125; 70450; 99284; 29125; L1830

== ENCOUNTER 2018-05-15 06:40 | Day surgery (SDC) | payer MEDICARE ==
[2018-05-14 10:19] VITALS: BMI 20.7
[~2018-05-15 06:40] MED LIST: HYDROmorphone 0.5 MG/0.5 ML SYRINGE IVP PRN; LIDOCAINE 1% 20 ML VIAL (10MG/ML) FOR IV START INTRADERMA PRN; ceFAZolin IN SWFI 2 GM/20 ML SYRINGE IVP ONE
[2018-05-15] MEDS ORDERED: MIDAZOLAM 2 MG/2 ML VIAL IV ONE ×2 (07:43→07:48)
[2018-05-15] MEDS ORDERED: fentaNYL (PF) 50 MCG/ML 2 ML AMP ONE (07:49)
[2018-05-15] MEDS ORDERED: MIDAZOLAM 2 MG/2 ML VIAL ONE (07:49)
[2018-05-15] MEDS ORDERED: ROPIVACAINE 5 MG/ML 30 ML VIAL ONE (07:49)
[2018-05-15] MEDS ORDERED: LIDOCAINE 2%-EPI 1:100,000 20 ML VIAL ONE (07:49)
[2018-05-15] MEDS ORDERED: PHENYLEPHRINE-0.9% NACL SYG 1 MG/10 ML SYRINGE ONE (07:49)
[2018-05-15] MEDS ORDERED: PROPOFOL 10 MG/ML 20 ML VIAL IV ONE (07:49)
[2018-05-15] MEDS: LACTATED RINGERS 1,000 ML IV SCH (08:01)
[2018-05-15] MEDS ORDERED: LIDOCAINE 1%-EPI 1:100,000 20 ML VIAL SQ ONE (10:28)
--- NOTE | 2018-05-15 10:39 | FL ---
EXAMINATION TYPE: FL guidance operating room DATE OF EXAM: 05/15/2018 HISTORY: Flouroscopy time 2 minutes and 36 seconds of fluoroscopy provided. IMPRESSION: 1. Fluoroscopy time.
--- NOTE | 2018-05-15 10:40 | XR ---
EXAMINATION TYPE: XR hand limited LT DATE OF EXAM: 05/15/2018 COMPARISON: 11/02/2017 HISTORY: Pain with fracture TECHNIQUE: 5 views submitted FINDINGS: Postsurgical change in near-anatomic alignment IMPRESSION: Postsurgical change
[2018-05-15] MEDS ORDERED: HYDROmorphone 0.5 MG/0.5 ML SYRINGE IVP PRN (10:58)
[2018-05-15] MEDS ORDERED: ONDANSETRON 4 MG/2 ML VIAL IVP PRN (10:58)
--- NOTE | 2018-05-15 11:17 | P.ONQ ---
Anesthesiology Proc Note - PNB - Peripheral Nerve Block Performed Left Infraclavicular Single Time Out Performed: Yes Procedure Start Time: :44 Procedure Stop Time: 07:51 Indication: Acute Post-Operative Pain, Requested by physician Sedation Type: Sedate with meaningful contact maintained Preparation: Sterile Prep Position: Supine Needle Size: 50mm (2") Needle Gauge: 21 Technique: Ultrasound (ropi .5% 20cc plus xylo 2% 10cc) Blood Aspirated: No Pain Paresthesia on Injection Noted: No Resistance on Injection: Normal Events: Uneventful and Well Tolerated
--- NOTE | 2018-05-15 12:53 | P.OP ---
Date of Procedure: 05/15/18 Preoperative Diagnosis: 1. Left thumb metacarpal base fracture ([place]) 2. Left thumb proximal phalanx fracture 3. Left index proximal phalanx fracture Postoperative Diagnosis: 1. Left thumb metacarpal base fracture ([place]) 2. Left thumb proximal phalanx fracture 3. Left index proximal phalanx fracture Procedure(s) Performed: 1. Open reduction and internal fixation of left thumb metacarpal base fracture ([place]) 2. Open reduction and internal fixation of left thumb proximal phalanx fracture Implants: [employer] Locking 2.3mm T-plate with locking and cortical screws, 0.062 & 0.054 K-wires Anesthesia: MAC, regional Surgeon: Daniel Maier Commercial Crabber #1: Emily Ortiz Estimated Blood Loss (ml): 5 Pathology: none sent Condition: stable Disposition: PACU Indications for Procedure: The patient is an 83 year-old male who sustained a mechanical fall which resulted in displaced, unstable fractures of his left thumb and index finger. Surgical treatment was recommended. Risks and benefits were discussed, including (but not limited to) the risks of infection, bleeding, injury to tendons or neurovascular structures and possible need for additional surgery. Questions were invited and answered. The patient and family members expressed understanding and wished to proceed with surgery. Consent forms were signed. The operative sites were confirmed and marked. Description of Procedure: The patient was administered a regional nerve block by the anesthesia team then brought to the operating suite. He was positioned supine with the operative limb on an arm board. All bony prominences were well padded. Anesthesia was administered uneventfully. Prophylactic IV antibiotics were administered. A tourniquet was placed on the left arm which was then prepped and draped in standard, sterile fashion. A timeout was performed which confirmed the patient , the operative side, the site and the procedure to be performed. All team members expressed agreement. The limb was exsanguinated with an Esmarch and the tourniquet was inflated. The fractures were evaluated with intraoperative fluoroscopy. The index proximal phalanx fracture was well aligned. This was stressed under live imaging and found to be stable. It was no motion at the fracture site with gentle flexion and extension of the surrounding joints and minimal motion with coronal and sagittal stress at the fracture site. No further fixation was deemed necessary. Attention was turned to the thumb. A longitudinal dorsal incision was marked along the thumb proximal phalanx and metacarpal, curving gently at the proximal aspect. The skin was incised sharply and subcutaneous tissue were spread, coagulating superficial vessels as needed. Superficial sensory nerves were identified, mobilized and protected. The periosteum over the metacarpal base was incised and elevated. The thenar musculature was dissected off the volar aspect. The extensor tendons were elevated and mobilized. The fracture site was identified. There was marked comminution immediately below the subchondral bone with three fracture fragments dorsally and a separate volar piece. Bone quality throughout the hand was found to be extremely poor. Comminution along the volar metaphysis was also noted. A manual reduction was performed with axial traction and rotation. A 0.054 K wire was drilled into the distal end of the metacarpal and advanced in a retrograde fashion across the fracture site and into the trapezium for provisional stability. The fracture site was opened with a freer and cleaned of hematoma and fibrous tissue. There was a paucity of cancellous bone beneath the articular surface and in the metaphysis. We attempted to reduce & hold the fracture with a pointed reduction clamp but the poor structural integrity of the existing bone resulted in displacement rather than reduction. A 2.3 mm T plate was selected and positioned on the bone. A Forest and dental pick were used to manipulate the fracture fragments into acceptable alignment. Plate was secured to the bone with a clamp. A cortical screw was drilled, measured and inserted to secure the plate to the proximal fragments, using fluoroscopy to assess trajectory and position. Of note, it was extremely difficult to get the appropriate x-ray views due to limited forearm rotation and the patient's existing contractures in the middle, ring and small fingers. Two additional locking screws were drilled and inserted into the proximal portion of the plate. Two cortical screws were drilled and inserted to secure the plate to the shaft distally. The K wire was removed and attention was turned to the proximal phalanx. The extensor tendons were split along the midline and elevated. The fracture site was identified with traumatic disruption of the dorsal periosteum. A capsulotomy was performed at the MCP joint. The entire articular surface was flexed with small intra-articular fracture lines noted. The was no cortical bone at the proximal dorsal diaphysis. The dorsal aspect of the articular surface was nearly devoid of subchondral bony support and there was no dorsal cortex to use for fixation. The phalanx was grossly unstable with cortical bone loss throughout the midshaft. A 0.062 K wire was inserted percutaneously through the end of the distal phalanx and advanced in a retrograde fashion across the IP joint. Axial traction was applied and the fracture was held manually reduced as the wire was advanced down the medullary canal. The articular surface of the proximal phalanx at the MCP joint was held in a reduced position with a Forest while the K wire was advanced across the MCP joint. This afforded good initial stability. A 0.054 K wire was introduced percutaneously at the distal aspect of the proximal phalanx. This was advanced obliquely, in a retrograde fashion, down the medullary canal and across the MCP joint for additional fixation. Final x-rays were obtained which demonstrated satisfactory overall alignment of both fractures. These were stressed under live fluoroscopy and no gross motion was seen at either fracture site. The wounds were thoroughly irrigated with normal saline. The thenar musculature , CMC and MCP joint capsules and periosteum were repaired with interrupted 3-0 Vicryl sutures. The split extensor tendon was reapproximated and repaired with interrupted sutures. The incision was closed with interrupted 5-0 nylon suture. Lidocaine with epinephrine was injected into the perioperative subcutaneous tissues for adjunctive postoperative pain control and hemostasis. The K wires were cut short and covered with Jurgan balls. A soft, sterile dressing was applied. All sponge and needle counts were correct at the end of the case. The patient tolerated the procedure well and was taken to the recovery room in stable condition.
[2018-05-15] MEDS: ceFAZolin IN SWFI 2 GM/20 ML SYRINGE IVP SCH (15:17)
[2018-05-15] MEDS: oxyCODONE-APAP 5-325MG 1 EACH TAB PO PRN (18:22)
[2018-05-15] MEDS ORDERED: ENOXAPARIN 30 MG/0.3 ML SYRINGE SQ SCH (20:00)
[2018-05-15 23:44] VITALS: RESP 18
[2018-05-16] MEDS: ceFAZolin IN SWFI 2 GM/20 ML SYRINGE IVP SCH (00:43)
[2018-05-16] MEDS: oxyCODONE-APAP 5-325MG 1 EACH TAB PO PRN ×2 (00:49→11:57)
[2018-05-16] MEDS: LACTATED RINGERS 1,000 ML IV SCH (06:41)
[2018-05-16 07:37] VITALS: BP 133/77; PULSE 66; TEMP 98.1
--- NOTE | 2018-05-16 10:03 | P.PN ---
Subjective Progress Note Date: 05/16/18 Principal diagnosis: Left hand fractures, left patella fracture The patient reports postop pain fluctuates in intensity but is well controlled with oral medication. He denies new issues or concerns. He has not yet worked with PT or OT. Objective - Vital Signs Vital signs: Vital Signs Temp 98.1 F 05/16/18 07:15 Pulse 66 05/16/18 07:15 Resp 18 05/16/18 07:15 BP 133/77 05/16/18 07:15 Pulse Ox 95 05/16/18 07:15 Intake & Output 05/15/18 05/16/18 05/16/18 18:59 06:59 18:59 Intake Total 1140 240 Output Total 105 253 Balance 1035 -253 240 Intake: IV 900 Oral 240 240 Output: Urine 100 253 Estimated Blood Loss 5 Other: Voiding Method Toilet Bedside Commode # Voids 1 - Exam Left hand Dressings were changed. Mild to moderate (appropriate) bloody strike through. Moderate edema of the dorsal hand, index, finger and thumb. Incision is well approximated with sutures in place. No erythema or drainage. K wires in place. Patient is able to actively range at the thumb CMC joint with minimal discomfort Left knee Mild residual edema around the left knee. Tenderness to palpation on the patella. Patient is able to actively range from 0-30 with minimal discomfort. Assessment and Plan Assessment: 1. POD #1 s/p ORIF left thumb landon and proximal phalanx fractures 2. Left index finger proximal phalanx fracture 3. Left patella fracture 4. Generalized weakness and deconditioning Plan: Dressings changed. Should remain on until followup appointment. May loosen and rewrap Coban if too tight. PT and OT eval pending. Goals: Safety eval and gait training (walker with left platform attachment), education and teaching to provide assistance with activities of daily living, given the patient's new physical/postop limitations Patient may weight-bear as tolerated on the left lower extremity with the hinged knee brace locked in extension. It may be opened at rest to allow 0-30 of flexion. May be removed for showers and hygiene. The steve straps should stay on the index and middle fingers at all times except for hand hygiene and when working with the hand therapist. Hand therapy may resume on the patient's obtained contractures but should only focus on the middle, ring and small fingers. NO THERAPY ON THE LEFT INDEX FINGER OR THUMB. The patient is encouraged to perform active range of motion of the index finger as tolerated while wearing the steve straps. The patient will be placed on oral Keflex for 5 days for prophylaxis of the pin sites. He should continue aspirin 325 mg daily for DVT prophylaxis. Patient may be discharged back to his facility once PT and OT have been completed. Follow-up outpatient with Dr. Maier in 10 days -- call for appointment.
== END 2018-05-16 14:30 ==
LOC: OR 06:40 → 1SOBS 11:07 → OR 05-16 14:30
PROVIDERS: ATTEND Orthopaedic Surgery
DX: S62.512A Displaced fracture of proximal phalanx of left thumb, initial encounter for closed fracture (principal); S62.611A Displaced fracture of proximal phalanx of left index finger, initial encounter for closed fracture; S62.232A Other displaced fracture of base of first metacarpal bone, left hand, initial encounter for closed fracture; S82.032A Displaced transverse fracture of left patella, initial encounter for closed fracture; M72.0 Palmar fascial fibromatosis [Dupuytren]; I10 Essential (primary) hypertension; F32.9 Major depressive disorder, single episode, unspecified; R26.81 Unsteadiness on feet; E78.5 Hyperlipidemia, unspecified; Z72.0 Tobacco use; H91.90 Unspecified hearing loss, unspecified ear; W18.09XA Striking against other object with subsequent fall, initial encounter; Z79.899 Other long term (current) drug therapy; Z79.891 Long term (current) use of opiate analgesic; Z79.82 Long term (current) use of aspirin; Z91.048 Other nonmedicinal substance allergy status
CPT/HCPCS: 97162; 97166; 73120; 64415; 26615; 26735; J2250; J1650; J0690 ×2

== ENCOUNTER 2020-03-18 10:22 | Inpatient (IN) | payer MEDICARE ==
[2020-03-18] MEDS ORDERED: SODIUM CHLORIDE 0.9% 1,000 ML IV ONE (10:50)
--- NOTE | 2020-03-18 10:53 | ED ---
Fall HPI - General Chief Complaint: Fall Stated Complaint: fall Time Seen by Provider: 03/18/20 10:34 Source: patient, family, RN notes reviewed, old records reviewed Mode of arrival: wheelchair - History of Present Illness Initial Comments: Patient is an 84-year-old male presents emergency department today for evaluation with complaints of fall 4 days ago. Patient reports that he is standing up taking his socks off when he fell hitting his head and neck in the left side of his body from the bathroom floor and in the bathtub. Patient states that he has pain with range of motion of his left arm and shoulder. He also complained of pain and unable to ambulate due to left hip pain. Patient reports that he is not on blood thinners besides baby aspirin. He has been sitting on the couch since he fell and does live in assisted living facility. He reports he's been unable to get up to go to the bathroom and has been taking in a cup by his bed. Patient's daughter went to check on him today and was informed that he had a fall 4 days ago decided bring him to the ER for evaluation. Patient's daughter reports it seems to be somewhat more confused. - Related Data Home Medications Medication Instructions Recorded Confirmed Cholecalciferol [Vitamin D3 (25 1,000 unit PO DAILY 04/16/14 03/18/20 Mcg = 1000 Iu)] Citalopram Hydrobromide [CeleXA] 30 mg PO DAILY 04/16/14 03/18/20 lisinopriL [Zestril] 10 mg PO DAILY 04/16/14 03/18/20 Multivitamins, Thera [Multivitamin 1 tab PO DAILY 05/06/18 03/18/20 (formulary)] Aspirin EC [Ecotrin Low Dose] 81 mg PO DAILY 03/18/20 03/18/20 Cyanocobalamin (Vitamin B-12) 1,000 mcg PO DAILY 03/18/20 03/18/20 [Vitamin B-12] Fenofibrate Nanocrystallized 145 mg PO DAILY 03/18/20 03/18/20 [Fenofibrate] Allergies Allergy/AdvReac Type Severity Reaction Status Date / Time adhesive tape Allergy Rash/Hives Verified 03/18/20 11:02 Review of Systems ROS Statement: Those systems with pertinent positive or pertinent negative responses have been documented in the HPI. ROS Other: All systems not noted in ROS Statement are negative. Past Medical History Past Medical History: CVA/TIA, Hyperlipidemia, Hypertension, Osteoarthritis (OA) Additional Past Medical History / Comment(s): tia, alcoholic, freq falls. past lt humeral/lt femur fx, kidney stone 40 plus years ago. at times tremors, irreg sleep pattern History of Any Multi-Drug Resistant Organisms: None Reported Past Surgical History: Hernia Repair, Joint Replacement, Orthopedic Surgery Additional Past Surgical History / Comment(s): SHOULDER LEFT 25 YEARS AGO, lt hip hemiarthroplasty Past Anesthesia/Blood Transfusion Reactions: No Reported Reaction Past Psychological History: Depression Smoking Status: Current every day smoker Past Alcohol Use History: Daily Past Drug Use History: None Reported - Past Family History Mother Family Medical History: Hypertension Father Additional Family Medical History / Comment(s): in [facility] when pt was 11 years old General Exam - General Exam Comments Initial Comments: 84-year-old male. Alert and oriented. Limitations: no limitations General appearance: alert, in no apparent distress Head exam: Present: atraumatic, normocephalic, normal inspection Eye exam: Present: normal appearance, PERRL, EOMI. Absent: scleral icterus, conjunctival injection, periorbital swelling ENT exam: Present: normal exam, mucous membranes dry, mucous membranes moist Neck exam: Present: normal inspection. Absent: tenderness, meningismus, lymphadenopathy Respiratory exam: Present: normal lung sounds bilaterally. Absent: respiratory distress, wheezes, rales, rhonchi, stridor Cardiovascular Exam: Present: regular rate, normal rhythm, normal heart sounds. Absent: systolic murmur, diastolic murmur, rubs, gallop, clicks GI/Abdominal exam: Present: soft, normal bowel sounds. Absent: distended, tenderness, guarding, rebound, rigid Extremities exam: Present: full ROM, normal capillary refill. Absent: tenderness, pedal edema, joint swelling, calf tenderness Left Upper Arm exam: Absent: normal inspection, full ROM (Patient has tenderness over the left clavicle. Pain with any abduction or extension of the left arm. Scar from previous surgeries noted.) Elbow exam: Present: normal inspection, full ROM Forearm Wrist exam: Present: full ROM. Absent: normal inspection (Pt has history of Deputreyen contracture) Hand Wrist exam: Present: normal inspection, full ROM Neuro motor exam: Present: wrist extension intact, thumb opposition intact, thumb IP flexion intact, thumb adduction intact, fingers 2-5 abduction intact Vascular: Present: normal capillary refill Left Upper Leg exam: Present: normal inspection, full ROM, tenderness (Patient has tenderness over the left greater trochanter mid shaft of the thigh.) Knee exam: Present: normal inspection, full ROM Lower Leg exam: Present: normal inspection, full ROM Ankle exam: Present: normal inspection, full ROM Foot/Toe exam: Present: normal inspection, full ROM Back exam: Present: normal inspection Neurological exam: Present: alert, oriented X3, CN II-XII intact Psychiatric exam: Present: normal affect, normal mood Skin exam: Present: warm, dry, intact, normal color. Absent: rash Course Vital Signs 03/18/20 03/18/20 10:22 11:47 Temperature 97.9 F Pulse Rate 100 80 Respiratory 18 18 Rate Blood Pressure 143/84 158/104 O2 Sat by Pulse 94 L 94 L Oximetry Medical Decision Making - Medical Decision Making 84-year-old male smoker living in assisted living facility presents after a fall 4 days ago while standing taking his sock off. Since that time he is unable to ambulate due to left hip pain. He has previous left hip prosthesis performed by Dr. Jarquin as well as left shoulder fracture repair with Dr. Rosales. He has some tenderness over the clavicle and computed tomography scan shows a mid clavicle fracture. X-ray of the pelvis shows evidence of the left greater trochanter fracture near prosthesis. With patient's age and less likely a candidate for surgery through prosthesis I did discuss the case with Veronica Patient who discussed with Dr. Rosales. Patient can be admitted if he is unable to ambulate with nonweightbearing capacities at his assisted living facility and can admit the Patient to the hospital for placement to rehab. Patient's daughter was informed of these results and is okay with treatment plan. - Lab Data Result diagrams: 03/18/20 11:04 03/18/20 11:04 Lab Results 03/18/20 03/18/20 03/18/20 Range/Units 11:04 11:04 11:04 WBC 10.5 (3.8-10.6) k/uL RBC 5.09 (4.30-5.90) m/uL Hgb 15.2 (13.0-17.5) gm/dL Hct 45.8 (39.0-53.0) % MCV 90.0 (80.0-100.0) fL MCH 29.8 (25.0-35.0) pg MCHC 33.1 (31.0-37.0) g/dL RDW 14.1 (11.5-15.5) % Plt Count 364 (150-450) k/uL MPV 8.1 Neutrophils % 79 % Lymphocytes % 11 % Monocytes % 7 % Eosinophils % 1 % Basophils % 1 % Neutrophils # 8.4 H (1.3-7.7) k/uL Lymphocytes # 1.1 (1.0-4.8) k/uL Monocytes # 0.7 (0-1.0) k/uL Eosinophils # 0.1 (0-0.7) k/uL Basophils # 0.1 (0-0.2) k/uL PT 9.7 (9.0-12.0) sec INR 0.9 (<1.2) APTT 26.9 (22.0-30.0) sec Sodium 144 (137-145) mmol/L Potassium 3.9 (3.5-5.1) mmol/L Chloride 107 (98-107) mmol/L Carbon Dioxide 25 (22-30) mmol/L Anion Gap 12 mmol/L BUN 38 H (9-20) mg/dL Creatinine 1.04 (0.66-1.25) mg/dL Est GFR (CKD-EPI)AfAm 77 (>60 ml/min/1.73 sqM) Est GFR (CKD-EPI)NonAf 66 (>60 ml/min/1.73 sqM) Glucose 187 H (74-99) mg/dL Calcium 10.6 H (8.4-10.2) mg/dL Total Bilirubin 1.3 (0.2-1.3) mg/dL AST 31 (17-59) U/L ALT 17 (4-49) U/L Alkaline Phosphatase 42 (38-126) U/L Troponin I (0.000-0.034) ng/mL Total Protein 8.3 H (6.3-8.2) g/dL Albumin 4.8 (3.5-5.0) g/dL 03/18/20 Range/Units 11:04 WBC (3.8-10.6) k/uL RBC (4.30-5.90) m/uL Hgb (13.0-17.5) gm/dL Hct (39.0-53.0) % MCV (80.0-100.0) fL MCH (25.0-35.0) pg MCHC (31.0-37.0) g/dL RDW (11.5-15.5) % Plt Count (150-450) k/uL MPV Neutrophils % % Lymphocytes % % Monocytes % % Eosinophils % % Basophils % % Neutrophils # (1.3-7.7) k/uL Lymphocytes # (1.0-4.8) k/uL Monocytes # (0-1.0) k/uL Eosinophils # (0-0.7) k/uL Basophils # (0-0.2) k/uL PT (9.0-12.0) sec INR (<1.2) APTT (22.0-30.0) sec Sodium (137-145) mmol/L Potassium (3.5-5.1) mmol/L Chloride (98-107) mmol/L Carbon Dioxide (22-30) mmol/L Anion Gap mmol/L BUN (9-20) mg/dL Creatinine (0.66-1.25) mg/dL Est GFR (CKD-EPI)AfAm (>60 ml/min/1.73 sqM) Est GFR (CKD-EPI)NonAf (>60 ml/min/1.73 sqM) Glucose (74-99) mg/dL Calcium (8.4-10.2) mg/dL Total Bilirubin (0.2-1.3) mg/dL AST (17-59) U/L ALT (4-49) U/L Alkaline Phosphatase (38-126) U/L Troponin I 0.027 (0.000-0.034) ng/mL Total Protein (6.3-8.2) g/dL Albumin (3.5-5.0) g/dL 03/18/20 11:05 EKG performed at 1102 shows normal sinus rhythm with premature atrial complexes. Ventricular rate of 92 bpm. Normal is 136 ms. QS duration is 94 ms. QT QTc is 380/479 ms. - Radiology Data Radiology results: report reviewed Shoulder x-ray shows postoperative changes involving the left humerus. X-ray of the left hip shows appears to be a lucency on the greater trochanteric sending to the hip prosthesis which was not seen on prior exam and suspicious for acute fracture. Nondisplaced. Best seen on the oblique view. Correlate for point tenderness. There is foreshortening of the right femoral neck which may be positional. Patient has symptoms related to the right femoral neck correlate with computed tomography scan pelvis. Chest x-ray shows no definite acute process. CT of the brain and C-spine showed no acute fracture dislocation evident cervical spine. No acute intracranial hemorrhage mass effect or midline shift is seen. Stable brain CT. There is a medial left clavicle fracture which is impacted minimally displaced. Disposition Clinical Impression: Clavicle fracture, Hip fracture, Smoker, Unable to ambulate Disposition: ADMITTED IP TO THIS HOSP Condition: Stable Is patient prescribed a controlled substance at d/c from ED?: No Referrals: Contreras Roberts DO [Primary Care Provider] - 1-2 days Time of Disposition: 12:59
[2020-03-18] MEDS: SODIUM CHLORIDE 0.9% 1,000 ML IV SCH ×2 (11:08→22:28)
[2020-03-18 11:14] LABS: Basophils # (A) 0.1 k/uL (0-0.2); Basophils % (A) 1 %; Eosinophils # (A) 0.1 k/uL (0-0.7); Eosinophils % (A) 1 %; HCT 45.8 % (39.0-53.0); HGB 15.2 gm/dL (13.0-17.5); Lymphocytes # (A) 1.1 k/uL (1.0-4.8); Lymphocytes % (A) 11 %; MCH 29.8 pg (25.0-35.0); MCHC 33.1 g/dL (31.0-37.0); Mean Platelet Volume 8.1; Monocytes # (A) 0.7 k/uL (0-1.0); Monocytes % (A) 7 %; Neutrophils # (A) 8.4 k/uL (1.3-7.7); Neutrophils % (A) 79 %; Platelet Count 364 k/uL (150-450); RBC 5.09 m/uL (4.30-5.90); RDW 14.1 % (11.5-15.5); WBC 10.5 k/uL (3.8-10.6)
[2020-03-18 11:29] LABS: Albumin 4.8 g/dL (3.5-5.0); Calcium 10.6 mg/dL (8.4-10.2); Potassium 3.9 mmol/L (3.5-5.1); Total Bilirubin 1.3 mg/dL (0.2-1.3); Total Protein 8.3 g/dL (6.3-8.2)
--- NOTE | 2020-03-18 11:41 | XR ---
EXAMINATION TYPE: XR chest 1V DATE OF EXAM: 03/18/2020 COMPARISON: 11/01/2017 HISTORY: Pain post fall TECHNIQUE: Single frontal view of the chest is obtained. FINDINGS: Postsurgical change left shoulder with chronic deformity of the left clavicle. Arthropathy of the right clavicle with a chronic rib deformity suspected on the right. The lungs are clear. 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 Atherosclerotic change aorta. No pneumothorax or overt failure. IMPRESSION: 1. No definite acute process.
--- NOTE | 2020-03-18 11:43 | XR ---
EXAMINATION TYPE: XR Hip LT and AP Pelvis DATE OF EXAM: 03/18/2020 COMPARISON: 01/04/2016 HISTORY: Pain TECHNIQUE: A single AP view of the pelvis is obtained. Two views of the right hip are obtained. FINDINGS: There is postsurgical changes involving the left hip. Diffuse osteopenia. Degenerative jennifer nge lower lumbar spine. Vascular calcifications noted. There is a lucency through the greater trochan ter of the left hip. Extends to the level of the prostheses. IMPRESSION: 1. There appears to be a lucency along the greater trochanter extending to the hip prostheses which w as not seen on the prior exam and suspicious for acute fracture. Nondisplaced. Best seen on the obliq ue view. Correlate with point tenderness for confirmation. 2. Foreshortening of the right femoral neck may be positional. If the patient has symptoms related to the right femoral neck correlate with CT scan pelvis.
--- NOTE | 2020-03-18 11:45 | XR ---
EXAMINATION TYPE: XR shoulder complete LT DATE OF EXAM: 03/18/2020 COMPARISON: NONE HISTORY: Pain TECHNIQUE: Three views are submitted. FINDINGS: Diffuse osteopenia. Postoperative change involving the left humerus. Chronic deformity of the left cl avicle. No acute fracture. IMPRESSION: 1. Postoperative change involving the left humerus
--- NOTE | 2020-03-18 11:50 | CT ---
EXAMINATION TYPE: CT brain cspine wo con DATE OF EXAM: 03/18/2020 COMPARISON: Prior head and cervical spine CT dated 05/06/2018 HISTORY: Fall on 03/14, confusion CT DLP: 1311.9 mGycm Automated exposure control for dose reduction was used. TECHNIQUE: CT scan of the head and cervical spine are performed without contrast. FINDINGS: There is no acute intracranial hemorrhage, mass effect, or midline shift identified. The ventricles and sulci are within normal limits in size. Periventricular white matter shows patchy low attenuation. There is cortical atrophy. The globes are intact and the visualized sinuses are clear. Cervical spine is visualized in its entirety from C1 through upper thoracic levels and demonstrates s table alignment without evidence of acute fracture or dislocation. Degenerative disc changes are agai n noted, there is multilevel spondylosis, foraminal encroachment, is loss of disc height signal, mini mal anterolisthesis grade 1 C3-4, vacuum phenomenon at intervertebral levels C3-4, C4-5 and C5-6. 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 Prevertebral soft tissue appea rs within normal limits. The C1-C2 articulation is unremarkable. The medial left clavicle shows impacted, minimally displaced fracture. Lung apices show emphysematous change. IMPRESSION: 1. There is no acute fracture or dislocation evident in the cervical spine. 2. No acute intracranial hemorrhage, mass effect, or midline shift is seen. Stable brain CT 3. Medial left clavicular fracture
[2020-03-18 11:55] LABS: INR 0.9 (<1.2); Partial Thromboplastin Time 26.9 sec (22.0-30.0); Prothrombin Time 9.7 sec (9.0-12.0)
[2020-03-18] MEDS ORDERED: ACETAMINOPHEN TAB 325 MG TAB PO PRN (13:00)
[2020-03-18] MEDS ORDERED: NALOXONE 0.4 MG/ML 1 ML VIAL IV PRN (13:00)
[2020-03-18] MEDS ORDERED: KETOROLAC 15 MG/ML 1 ML VIAL IVP PRN (13:00)
[2020-03-18] MEDS ORDERED: ONDANSETRON 4 MG/2 ML VIAL IVP PRN (13:00)
[2020-03-18] MEDS ORDERED: IBUPROFEN 400 MG TAB PO PRN (13:00)
[2020-03-18] MEDS ORDERED: MORPHINE SULFATE 4 MG/ML SYRINGE IV PRN (13:00)
[2020-03-18] MEDS ORDERED: NICOTINE 21MG/24HR PATCH TRANSDERM STA (13:03)
[2020-03-18 16:54] LABS: Glucose,Whole Blood 101 mg/dL (75-99)
--- NOTE | 2020-03-18 18:18 | P.HPOR ---
History of Present Illness H&P Date: 03/18/20 This patient is an 84-year-old male with history of hypertension, hyperlipidemia, CVA/TIA, and who is a current every day smoker that presented to [facility] emergency department today with his daughter for complaints of left hip pain and left shoulder pain following a fall 4 days ago. The p atient states he lives in an assisted living home. He states he fell about 4 days ago onto his left side. He states he has been unable to ambulate due to left hip pain following this fall. He was brought to the emergency department today by his daughter. X-rays in the emergency department on the left hip revealed a nondisplaced periprosthetic fracture of the greater trochanter. Computed tomography scan of the head and cervical spine revealed no acute abnormality, although there was an impacted, minimally displaced medial clavicle fracture noted on CT. Patient was admitted under the care of Dr. Rosales for possible rehab placement of a consult placed to internal medicine for medical management. At the time of my exam, the patient is complaining of isolated left hip pain and left shoulder pain. He states his pain is currently well-controlled. He denies chest pain or shortness of breath. He denies numbness or tingling of the left upper extremity left lower extremity. He has no additional complaints at this time. Vital signs are currently stable. Past Medical History Past Medical History: CVA/TIA, Hyperlipidemia, Hypertension, Osteoarthritis (OA) Additional Past Medical History / Comment(s): tia, alcoholic, freq falls. past lt humeral/lt femur fx, kidney stone 40 plus years ago. at times tremors, irreg sleep pattern History of Any Multi-Drug Resistant Organisms: None Reported Past Surgical History: Hernia Repair, Joint Replacement, Orthopedic Surgery Additional Past Surgical History / Comment(s): SHOULDER LEFT 25 YEARS AGO, lt hip hemiarthroplasty Past Anesthesia/Blood Transfusion Reactions: No Reported Reaction Past Psychological History: Depression Additional Psychological History / Comment(s): pt lives at [facility] Smoking Status: Current every day smoker Past Alcohol Use History: Daily Additional Past Alcohol Use History / Comment(s): Patient is a smoker of 3 packs per day since he was 13 years of age. He is drinking a 12 pack of beer per day for a long period of time. Rare use now residing at [facility] Past Drug Use History: None Reported - Past Family History Mother Family Medical History: Hypertension Father Additional Family Medical History / Comment(s): in [facility] when pt was 11 years old Medications and Allergies Home Medications Medication Instructions Recorded Confirmed Type Cholecalciferol [Vitamin D3 (25 1,000 unit PO DAILY 04/16/14 03/18/20 History Mcg = 1000 Iu)] Citalopram Hydrobromide [CeleXA] 30 mg PO DAILY 04/16/14 03/18/20 History lisinopriL [Zestril] 10 mg PO DAILY 04/16/14 03/18/20 History Multivitamins, Thera [Multivitamin 1 tab PO DAILY 05/06/18 03/18/20 History (formulary)] Aspirin EC [Ecotrin Low Dose] 81 mg PO DAILY 03/18/20 03/18/20 History Cyanocobalamin (Vitamin B-12) 1,000 mcg PO DAILY 03/18/20 03/18/20 History [Vitamin B-12] Fenofibrate Nanocrystallized 145 mg PO DAILY 03/18/20 03/18/20 History [Fenofibrate] Allergies Allergy/AdvReac Type Severity Reaction Status Date / Time adhesive tape Allergy Rash/Hives Verified 03/18/20 11:02 Physical Examination At the time of my exam, the patient is lying in bed in no apparent distress. He is alert and oriented 3. His head appears normocephalic and atraumatic. His breathing appears nonlabored. On inspection of the left shoulder and clavicle, there are no open wounds or lacerations. Sling in place on the left upper extremity. There is a healed scar of the anterior shoulder. There is pain on palpation of the medial clavicle. There is no pain on palpation of the distal clavicle, humerus, elbow, forearm, wrist, hand. Range of motion of left shoulder is not tested at this time. No pain with passive range of motion of the left elbow or wrist. Motor and sensory function appear intact of the left upper extremity. Radial pulse palpable, the left upper extremity is warm and well- perfused. On inspection of the left hip, there are no open wounds or lacerations. Skin is intact. There is moderate pain on palpation of the greater trochanter. Range of motion of the hip is not tested at this time. There is no pain on palpation of the left knee, lower leg, ankle, foot. Patient has good strength and range of motion of the left ankle. Motor and sensory function are intact of the left lower extremity. Dorsalis pedis pulse palpable, the left lower extremity is warm and well-perfused with brisk capillary refill distally. Lower extremity compression cuffs are in place bilaterally. Calves are soft and nontender to palpation bilaterally. On inspection of the right upper extremity and the right lower extremity, there are no obvious deformities or signs of trauma. Results Left hip x-ray 03/18/20: Non-displaced periprosthetic fracture at the greater trochanter. Hemiarthroplasty in good position of the left femur. Left shoulder x-ray 03/18/2020: No acute fractures. IM humeral nail in place. CT head and cervical spine 03/18/2020: Per report, no acute fractures or dislocations at the C-spine. No acute abnormalities. Impacted, minimally displaced medial clavicle fracture. - Labs Labs: Abnormal Lab Results - Last 24 Hours (Table) 03/18/20 03/18/20 03/18/20 Range/Units 11:04 11:04 16:51 Neutrophils # 8.4 H (1.3-7.7) k/uL BUN 38 H (9-20) mg/dL Glucose 187 H (74-99) mg/dL POC Glucose (mg/dL) 101 H (75-99) mg/dL Calcium 10.6 H (8.4-10.2) mg/dL Total Protein 8.3 H (6.3-8.2) g/dL H & H 03/18/20 Range/Units 11:04 Hgb 15.2 (13.0-17.5) gm/dL Hct 45.8 (39.0-53.0) % Coagulation 03/18/20 Range/Units 11:04 INR 0.9 (<1.2) Result Diagrams: 03/18/20 11:04 03/18/20 11:04 Assessment and Plan Assessment: Non-displaced left periprosthetic fracture of the left greater trochanter Left minimally displaced medial clavicle fracture Plan: - The clinical and imaging findings were discussed with the patient. Patient was discussed with Dr. Rosales. No surgical intervention is planned for the left nondisplaced periprosthetic greater trochanter fracture, or the medial left clavicle fracture. - He is to remain toe-touch weightbearing on the left lower extremity. Up with assistance, up with a walker. Physical therapy for gait and balance training. - He should keep the sling in place on the left upper extremity for his clavicle fracture. - Pain management as needed. - Case management consulted for rehab placement. Internal medicine consulted fo r medical management.
[2020-03-18] MEDS ORDERED: HYDROcodone/APAP 5-325MG 1 EACH TAB PO PRN (18:19)
--- NOTE | 2020-03-18 21:43 | XR ---
EXAMINATION TYPE: XR clavicle LT DATE OF EXAM: 03/18/2020 COMPARISON: Shoulder x-ray 04/15/2014 HISTORY: Shoulder pain TECHNIQUE: 2 views FINDINGS: There is deformity of the lateral and of the clavicle related to old ununited fracture. I s ee no acute fracture. There is intramedullary emma in the proximal left humerus. There is no dislocati on. IMPRESSION: No acute fracture seen. 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 No change in position compared to old exam.
[2020-03-19 07:43] LABS: Appearance,Urine Clear (Clear); Bilirubin,Urine Negative (Negative); Blood,Urine Negative (Negative); Color,Urine Yellow; Glucose,Urine (UA) Negative (Negative); Ketones,Urine Negative (Negative); Leukocyte Esterase,Urine Negative (Negative); Nitrite,Urine Negative (Negative); PH, Urine 6.5 (5.0-8.0); Protein,Urine Trace (Negative); Specific Gravity,Urine 1.022 (1.001-1.035)
[2020-03-19] MEDS ORDERED: lisinopriL 10 MG TAB PO SCH (09:00)
[2020-03-19] MEDS ORDERED: CHOLECALCIFEROL 1,000 UNIT TAB PO SCH (09:00)
[2020-03-19] MEDS ORDERED: FENOFIBRATE 160 MG TAB PO SCH (09:00)
[2020-03-19] MEDS ORDERED: CITALOPRAM HYDROBROMIDE 10 MG TAB PO SCH (09:00)
[2020-03-19] MEDS ORDERED: ASPIRIN 81 MG PO SCH (09:00)
[2020-03-19] MEDS ORDERED: MULTIVITAMINS, THERA 1 EACH TAB PO SCH (09:00)
[2020-03-19] MEDS ORDERED: PANTOPRAZOLE 40 MG/10 ML VIAL IV SCH (09:00)
[2020-03-19] MEDS ORDERED: CYANOCOBALAMIN 500 MCG TAB PO SCH (09:00)
[2020-03-19] MEDS: SODIUM CHLORIDE 0.9% 1,000 ML IV SCH (10:24)
--- NOTE | 2020-03-19 13:26 | P.CNPUL ---
History of Present Illness Consult date: 03/19/20 (Medical management) Chief complaint: Medical management History of present illness: This is a 84-year-old male with prior medical history hypertension dyslipidemia history of stroke, patient does have a history of smoking and nicotine use, karlee ent came into the hospital with left hip pain and left shoulder pain he has a fall about 4 days ago, he is a resident of [facility], patient has been uncomfortable, patient underwent computed tomography scan and x-rays in emergency department, x-ray of the left hip revealed nondisplaced periprosthetic fracture of greater greater trochanter computed tomography scan of the head and C-spine negative however medially displaced medial clavicle fracture was seen patient was evaluated by Dr. Rosales, and denies any other active issues except the pain in shoulder and hip, cm is hemodynamically stable, patient is being continued home medications, Review of Systems All systems: negative Past Medical History Past Medical History: CVA/TIA, Hyperlipidemia, Hypertension, Osteoarthritis (OA) Additional Past Medical History / Comment(s): tia, alcoholic, freq falls. past lt humeral/lt femur fx, kidney stone 40 plus years ago. at times tremors, irreg sleep pattern History of Any Multi-Drug Resistant Organisms: None Reported Past Surgical History: Hernia Repair, Joint Replacement, Orthopedic Surgery Additional Past Surgical History / Comment(s): SHOULDER LEFT 25 YEARS AGO, lt hip hemiarthroplasty Past Anesthesia/Blood Transfusion Reactions: No Reported Reaction Past Psychological History: Depression Additional Psychological History / Comment(s): pt lives at [facility] Smoking Status: Current every day smoker Past Alcohol Use History: Daily Additional Past Alcohol Use History / Comment(s): Patient is a smoker of 3 packs per day since he was 13 years of age. He is drinking a 12 pack of beer per day for a long period of time. Rare use now residing at [facility] Past Drug Use History: None Reported - Past Family History Mother Family Medical History: Hypertension Father Additional Family Medical History / Comment(s): in [facility] when pt was 11 years old Medications and Allergies Home Medications Medication Instructions Recorded Confirmed Type Cholecalciferol [Vitamin D3 (25 1,000 unit PO DAILY 04/16/14 03/18/20 History Mcg = 1000 Iu)] Citalopram Hydrobromide [CeleXA] 30 mg PO DAILY 04/16/14 03/18/20 History lisinopriL [Zestril] 10 mg PO DAILY 04/16/14 03/18/20 History Multivitamins, Thera [Multivitamin 1 tab PO DAILY 05/06/18 03/18/20 History (formulary)] Aspirin EC [Ecotrin Low Dose] 81 mg PO DAILY 03/18/20 03/18/20 History Cyanocobalamin (Vitamin B-12) 1,000 mcg PO DAILY 03/18/20 03/18/20 History [Vitamin B-12] Fenofibrate Nanocrystallized 145 mg PO DAILY 03/18/20 03/18/20 History [Fenofibrate] Allergies Allergy/AdvReac Type Severity Reaction Status Date / Time adhesive tape Allergy Rash/Hives Verified 03/18/20 11:02 Physical Exam Vitals: Vital Signs Temp Pulse Pulse Resp BP BP Pulse Ox 03/19/20 07:45 97.7 F 76 145/79 91 L 03/19/20 02:30 97.6 F 81 18 164/67 94 L 03/18/20 22:30 75 18 03/18/20 20:00 97.3 F L 75 18 152/91 93 L 03/18/20 19:30 17 03/18/20 15:11 16 03/18/20 14:50 976 F H 76 16 157/76 94 L 03/18/20 14:13 97.6 F 72 18 173/93 95 Intake and Output 03/18/20 03/19/20 03/19/20 22:59 06:59 14:59 Other: Voiding Method Urinal Urinal # Voids 1 - Constitutional General appearance: average body habitus, disheveled - EENT Eyes: PERRLA ENT: hard of hearing Ears: bilateral: normal - Neck Neck: normal ROM Carotids: bilateral: upstroke normal - Respiratory Respiratory: bilateral: CTA - Cardiovascular Rhythm: regular Heart sounds: normal: S1, S2 - Gastrointestinal General gastrointestinal: normal bowel sounds, soft - Neurologic Neurologic: CNII-XII intact - Musculoskeletal Musculoskeletal: generalized weakness, strength equal bilaterally - Psychiatric Psychiatric: A&O x's 3, appropriate affect, intact judgment & insight Results - Laboratory Findings CBC and BMP: 03/18/20 11:04 03/18/20 11:04 PT/INR, D-dimer PT 9.7 sec (9.0-12.0) 03/18/20 11:04 INR 0.9 (<1.2) 03/18/20 11:04 Abnormal lab findings: Abnormal Labs 03/18/20 03/18/20 03/18/20 11:04 11:04 16:51 Neutrophils # 8.4 H BUN 38 H Glucose 187 H POC Glucose (mg/dL) 101 H Calcium 10.6 H Total Protein 8.3 H Urine Protein 03/19/20 07:35 Neutrophils # BUN Glucose POC Glucose (mg/dL) Calcium Total Protein Urine Protein Trace H Assessment and Plan Assessment: Nondisplaced left periprosthetic fracture of left greater trochanter Minimally displaced medial clavicle or fracture Shoulder and hip pain due to above Status post fall History of CVA Dyslipidemia Potential hypertensive cardiovascular disease Osteoarthritis Smoking and nicotine abuse Resident of extended care facility Plan: Patient has been cleared from medical standpoint for the discharge will proceed into the discharge reconciliation Time with Patient: Greater than 30
[2020-03-19 14:26] VITALS: BP 96/64; PULSE 95; RESP 14; TEMP 97.6
[2020-03-19 14:27] VITALS: BMI 20.5
--- NOTE | 2020-03-19 14:30 | P.DS ---
Providers Date of admission: 03/18/20 13:52 Expected date of discharge: 03/19/20 Attending physician: Meseret Rosales Consults: 03/18/20 13:00 Consult Physician Stat Consulting Provider: Ruel Nelson Consult Reason/Comments: hip fracture, non weight bearing, rehab placement Do you want consulting provider notified?: Yes Primary care physician: [facility] Course: This patient is an 84-year-old male with history of hypertension, hyperlipidemia, CVA/TIA, and who is a current every day smoker that presented to [facility] emergency department today with his daughter for complaints of left hip pain and left shoulder pain following a fall. X-rays in the emergency department on the left hip revealed a nondisplaced periprosthetic fracture of the greater trochanter. Computed tomography scan of the head and cervical spine revealed no acute abnormality, although there was an impacted, minimally displaced medial clavicle fracture noted on CT. Non-surgical treatment was recommended for the femur and clavicle fracture, although there was concern from his daughter about the patient being discharged from the ER, as he lives at [facility], and does not have help. Therefore, he was admitted under the care of Dr. Rosales with a consult to physical therapy for rehab placement. Consult was also placed to internal medicine for medical management. Patient is seen and examined bedside this morning. Patient states the pain in his left hip and clavicle are well-controlled, he currently is not having pain. Patient has been working with physical therapy this morning. Patient overall has no complaints. He denies chest pain, shortness breath, nausea, vomiting, fevers, chills. He denies numbness or tingling of the left upper extremity or the left lower extremity. At the time of my exam, the patient is lying in bed in no apparent distress. He is alert and oriented 3. On inspection of the left hip, there is no erythema, ecchymosis, skin discoloration. No open wounds or lacerations. Mild pain on palpation of the greater trochanter. Range of motion of the left hip is not tested at this time. Motor and sensory function are intact of the left lower extremity. Dorsalis pedis pulse +2, both lower extremities warm and well-perfused with brisk capillary refill distally. Nontender to palpation. On inspection of the left upper extremity, the extremity is currently in a sling. The left upper extremity is warm and well-perfused with brisk capillary refill distally. Motor and sensory function are intact of the left upper extremity. Patient is discharged to rehab today, patient has been cleared by internal medicine for discharge today. Patient will follow up in the office in 1 week for repeat x-rays of the left hip and the left clavicle. Patient Condition at Discharge: Stable Plan - Discharge Summary New Discharge Prescriptions: Continue Cholecalciferol [Vitamin D3 (25 Mcg = 1000 Iu)] 1,000 unit PO DAILY lisinopriL [Zestril] 10 mg PO DAILY Citalopram Hydrobromide [CeleXA] 30 mg PO DAILY Multivitamins, Thera [Multivitamin (formulary)] 1 tab PO DAILY Fenofibrate Nanocrystallized [Fenofibrate] 145 mg PO DAILY Aspirin EC [Ecotrin Low Dose] 81 mg PO DAILY Cyanocobalamin (Vitamin B-12) [Vitamin B-12] 1,000 mcg PO DAILY Discharge Medication List Cholecalciferol [Vitamin D3 (25 Mcg = 1000 Iu)] 1,000 unit PO DAILY 04/16/14 [History] Citalopram Hydrobromide [CeleXA] 30 mg PO DAILY 04/16/14 [History] lisinopriL [Zestril] 10 mg PO DAILY 04/16/14 [History] Multivitamins, Thera [Multivitamin (formulary)] 1 tab PO DAILY 05/06/18 [History] Aspirin EC [Ecotrin Low Dose] 81 mg PO DAILY 03/18/20 [History] Cyanocobalamin (Vitamin B-12) [Vitamin B-12] 1,000 mcg PO DAILY 03/18/20 [History] Fenofibrate Nanocrystallized [Fenofibrate] 145 mg PO DAILY 03/18/20 [History] Follow up Appointment(s)/Referral(s): Contreras Roberts DO [Primary Care Provider] - 1-2 days Meseret Rosales DO [Doctor of Osteopathic Medicine] - 1 Week Activity/Diet/Wound Care/Special Instructions: Toe-touch weight bearing on left lower extremity. Up with assistance, up with a walker. Keep sling on when out of bed. Follow-up in the office in 1 week for repeat x-rays. Discharge Disposition: TRANSFER TO SNF/ECF
[2020-03-22 09:28] LABS: Glucose,Whole Blood 85 mg/dL (75-99)
[2020-03-22 09:36] LABS: Glucose,Whole Blood 113 mg/dL (75-99)
[2020-03-22 09:37] LABS: Glucose,Whole Blood 95 mg/dL (75-99)
== END 2020-03-19 16:42 | DRG 562 ==
LOC: EC 10:22 → 4SSUR 13:52
PROVIDERS: ADMIT Orthopaedic Surgery Orthopaedic Surgery of the Spine; ATTEND Orthopaedic Surgery Orthopaedic Surgery of the Spine
DX: S42.012A Anterior displaced fracture of sternal end of left clavicle, initial encounter for closed fracture (principal); S72.115A Nondisplaced fracture of greater trochanter of left femur, initial encounter for closed fracture; M97.02XA Periprosthetic fracture around internal prosthetic left hip joint, initial encounter; F10.21 Alcohol dependence, in remission; E78.5 Hyperlipidemia, unspecified; F17.210 Nicotine dependence, cigarettes, uncomplicated; F32.9 Major depressive disorder, single episode, unspecified; I10 Essential (primary) hypertension; M19.90 Unspecified osteoarthritis, unspecified site; R29.6 Repeated falls; Z79.82 Long term (current) use of aspirin; Z79.899 Other long term (current) drug therapy; Z86.73 Personal history of transient ischemic attack (TIA), and cerebral infarction without residual deficits; Z87.442 Personal history of urinary calculi; Z87.19 Personal history of other diseases of the digestive system; Z91.048 Other nonmedicinal substance allergy status; Z87.81 Personal history of (healed) traumatic fracture; Z96.642 Presence of left artificial hip joint; Z82.49 Family history of ischemic heart disease and other diseases of the circulatory system; W01.198A Fall on same level from slipping, tripping and stumbling with subsequent striking against other object, initial encounter; Y92.002 Bathroom of unspecified non-institutional (private) residence as the place of occurrence of the external cause
CPT/HCPCS: 36415; 70450; 71045; 72125; 73502; 80053; 81003; 84484; 85025; 85610; 85730; 93005; 96360; 99285

== ENCOUNTER 2020-09-01 09:05 | Inpatient (IN) | payer MEDICARE ==
[2020-09-01] MEDS ORDERED: SODIUM CHLORIDE 0.9% 500 ML 500 ML IV STA (09:22)
[2020-09-01] MEDS ORDERED: MORPHINE SULFATE 2 MG/ML SYRINGE IVP STA (09:25)
[2020-09-01 09:42] LABS: Basophils % (A) 0 %; Eosinophils % (A) 0 %; HCT 41.9 % (39.0-53.0); HGB 13.6 gm/dL (13.0-17.5); Lymphocytes # (A) 0.9 k/uL (1.0-4.8); Lymphocytes % (A) 9 %; MCH 28.9 pg (25.0-35.0); MCHC 32.5 g/dL (31.0-37.0); Mean Platelet Volume 7.9; Monocytes # (A) 0.5 k/uL (0-1.0); Monocytes % (A) 5 %; Neutrophils # (A) 8.5 k/uL (1.3-7.7); Neutrophils % (A) 84 %; Platelet Count 365 k/uL (150-450); RDW 14.7 % (11.5-15.5); WBC 10.1 k/uL (3.8-10.6)
--- NOTE | 2020-09-01 09:46 | ED ---
General Adult HPI - General Chief complaint: Fall Stated complaint: fall Time Seen by Provider: 09/01/20 09:12 Source: patient, EMS Mode of arrival: EMS Limitations: no limitations - History of Present Illness Initial comments: 85-year-old male with a past medical history of TIA, hyperlipidemia, hypertension, alcoholism, frequent falls presents to the emergency room for chief complaint of fall. Patient apparently lives in an assisted living facility where they are able to help him with his medications. They report that they went to give him his medications this morning and he was found in the bathroom. Patient believes he was there since about 8:00 PM last night. He reports that he fell because of his walker. He denies loss of consciousness. He does not believe he hit his head. He was unable to get up off the ground. When EMS arrived he was a total two-person assist because of weakness. He stated he was able to bear weight on his legs. Patient is complaining of low back pain but states that is largely chronic in nature.Patient has no other complaints at this time including shortness of breath, chest pain, abdominal pain, nausea or vomiting, headache, or visual changes. - Related Data Home Medications Medication Instructions Recorded Confirmed Citalopram Hydrobromide [CeleXA] 30 mg PO DAILY 04/16/14 03/18/20 lisinopriL [Zestril] 10 mg PO DAILY 04/16/14 03/18/20 Multivitamins, Thera [Multivitamin 1 tab PO DAILY 05/06/18 03/18/20 (formulary)] Aspirin EC [Ecotrin Low Dose] 81 mg PO DAILY 03/18/20 03/18/20 Cyanocobalamin (Vitamin B-12) 1,000 mcg PO DAILY 03/18/20 03/18/20 [Vitamin B-12] Fenofibrate Nanocrystallized 145 mg PO DAILY 03/18/20 03/18/20 [Fenofibrate] Acetaminophen Tab [Tylenol Tab] 500 - 1,000 mg PO Q8H PRN MDD 3gm 09/01/20 09/01/20 Cholecalciferol [Vitamin D3 (25 25 mcg PO DAILY 09/01/20 09/01/20 Mcg = 1000 Iu)] Ibuprofen [Motrin] 800 mg PO DAILY PRN 09/01/20 09/01/20 Allergies Allergy/AdvReac Type Severity Reaction Status Date / Time adhesive tape Allergy Rash/Hives Verified 09/01/20 10:30 Review of Systems ROS Statement: Those systems with pertinent positive or pertinent negative responses have been documented in the HPI. ROS Other: All systems not noted in ROS Statement are negative. Past Medical History Past Medical History: CVA/TIA, Hyperlipidemia, Hypertension, Osteoarthritis (OA) Additional Past Medical History / Comment(s): tia, alcoholic, freq falls. past lt humeral/lt femur fx, kidney stone 40 plus years ago. at times tremors, irreg sleep pattern History of Any Multi-Drug Resistant Organisms: None Reported Past Surgical History: Hernia Repair, Joint Replacement, Orthopedic Surgery Additional Past Surgical History / Comment(s): SHOULDER LEFT 25 YEARS AGO, lt hip hemiarthroplasty Past Anesthesia/Blood Transfusion Reactions: No Reported Reaction Past Psychological History: Depression Smoking Status: Current every day smoker Past Alcohol Use History: Daily Past Drug Use History: None Reported - Past Family History Mother Family Medical History: Hypertension Father Additional Family Medical History / Comment(s): [facility] pt was 11 years old General Exam Limitations: no limitations General appearance: alert, in no apparent distress Head exam: Present: atraumatic, normocephalic, normal inspection Eye exam: Present: normal appearance, PERRL, EOMI. Absent: periorbital swelling ENT exam: Present: normal exam, mucous membranes moist Neck exam: Present: normal inspection, full ROM. Absent: tenderness Respiratory exam: Present: normal lung sounds bilaterally. Absent: respiratory distress, wheezes Cardiovascular Exam: Present: regular rate, normal rhythm, normal heart sounds GI/Abdominal exam: Present: soft, normal bowel sounds. Absent: distended, tenderness, guarding, rebound, rigid Extremities exam: Present: full ROM (full ROM of BL hips), normal capillary refill (cap refill < 2 seconds), other (no tenderness or evidence of external trauma of upper or lower extremities.) Back exam: Present: vertebral tenderness (upper lumbar spine tenderness ) Course Vital Signs 09/01/20 09/01/20 09/01/20 09:06 10:15 11:33 Temperature 98.6 F Pulse Rate 94 95 93 Respiratory 22 20 20 Rate Blood Pressure 140/103 189/109 176/100 O2 Sat by Pulse 92 L 95 95 Oximetry EKG Findings - EKG Comments: EKG Findings:: SR, Pr int 160, Pr int 160, QTC 495 Medical Decision Making - Medical Decision Making Vitals are stable.Patient does have some mild lumbar tenderness. No other injuries noted. CBC is unremarkable. CMP shows mild dehydration, patient was given fluids. Creatine kinase mildly elevated 680 likely from lying on the floor throughout the night. Urinalysis is unremarkable. Alcohol is negative. Patient is a past alcoholic and denies drinking any alcoholic beverages recently. CT brain showed mild to moderate hydrocephalus which may in part related to cerebral atrophy. Relatively stable from 03/18/2020. No other acute cranial abnormality seen. No acute fracture of the cervical spine. Chest x- ray does show COPD with bilateral chronic-appearing rib deformities. On CT of the neck they did see some opacities in the lungs which could be related to pneumonia or CHF, pt denies fevers but does admit to cough and weakness, will be treated. Pelvis x-ray shows no acute posttraumatic changes. Lumbar spine does show superior endplate compression fractures of indeterminate age of T12 and L1. Daughter does not think the patient has never had these in the past. Patient does have tenderness in this area. CT was ordered. CT lumbar spine showed soto perior endplate deformities to have a chronic appearance. No retropulsion. This is likely not acute. Of note patient also has a severely distended bladder. We did do a bladder scan and 900 mL's was seen post void. Therefore Bain catheter was placed. Patient will be admitted for weakness, failure to thrive, debility, pneumonia. He will likely require rehabilitation as he has in the past. - Lab Data Result diagrams: 09/01/20 09:27 09/01/20 09:27 Lab Results 09/01/20 09/01/20 09/01/20 Range/Units 09:27 09:27 09: WBC 10.1 (3.8-10.6) k/uL RBC 4.70 (4.30-5.90) m/uL Hgb 13.6 (13.0-17.5) gm/dL Hct 41.9 (39.0-53.0) % MCV 89.0 (80.0-100.0) fL MCH 28.9 (25.0-35.0) pg MCHC 32.5 (31.0-37.0) g/dL RDW 14.7 (11.5-15.5) % Plt Count 365 (150-450) k/uL MPV 7.9 Neutrophils % 84 % Lymphocytes % 9 % Monocytes % 5 % Eosinophils % 0 % Basophils % 0 % Neutrophils # 8.5 H (1.3-7.7) k/uL Lymphocytes # 0.9 L (1.0-4.8) k/uL Monocytes # 0.5 (0-1.0) k/uL Eosinophils # 0.0 (0-0.7) k/uL Basophils # 0.0 (0-0.2) k/uL PT 10.5 (9.0-12.0) sec INR 1.0 (<1.2) APTT 24.6 (22.0-30.0) sec Sodium (137-145) mmol/L Potassium (3.5-5.1) mmol/L Chloride (98-107) mmol/L Carbon Dioxide (22-30) mmol/L Anion Gap mmol/L BUN (9-20) mg/dL Creatinine (0.66-1.25) mg/dL Est GFR (CKD-EPI)AfAm (>60 ml/min/1.73 sqM) Est GFR (CKD-EPI)NonAf (>60 ml/min/1.73 sqM) Glucose (74-99) mg/dL Calcium (8.4-10.2) mg/dL Magnesium (1.6-2.3) mg/dL Total Bilirubin (0.2-1.3) mg/dL AST (17-59) U/L ALT (4-49) U/L Alkaline Phosphatase (38-126) U/L Creatine Kinase (55-170) U/L Troponin I (0.000-0.034) ng/mL Total Protein (6.3-8.2) g/dL Albumin (3.5-5.0) g/dL TSH (0.465-4.680) mIU/L Urine Color Yellow Urine Appearance Cloudy (Clear) Urine pH 7.5 (5.0-8.0) Ur Specific [place] 1.021 (1.001-1.035) Urine Protein 1+ H (Negative) Urine Glucose (UA) Negative (Negative) Urine Ketones Negative (Negative) Urine Blood Negative (Negative) Urine Nitrite Negative (Negative) Urine Bilirubin Negative (Negative) Urine Urobilinogen <2.0 (<2.0) mg/dL Ur Leukocyte Esterase Negative (Negative) Urine WBC 4 (0-5) /hpf Amorphous Sediment Occasional H (None) /hpf Urine Mucus Rare H (None) /hpf Serum Alcohol mg/dL Coronavirus (PCR) (Not Detectd) 09/01/20 09/01/20 09/01/20 Range/Units 09:27 09:27 09:27 WBC (3.8-10.6) k/uL RBC (4.30-5.90) m/uL Hgb (13.0-17.5) gm/dL Hct (39.0-53.0) % MCV (80.0-100.0) fL MCH (25.0-35.0) pg MCHC (31.0-37.0) g/dL RDW (11.5-15.5) % Plt Count (150-450) k/uL MPV Neutrophils % % Lymphocytes % % Monocytes % % Eosinophils % % Basophils % % Neutrophils # (1.3-7.7) k/uL Lymphocytes # (1.0-4.8) k/uL Monocytes # (0-1.0) k/uL Eosinophils # (0-0.7) k/uL Basophils # (0-0.2) k/uL PT (9.0-12.0) sec INR (<1.2) APTT (22.0-30.0) sec Sodium 145 (137-145) mmol/L Potassium 4.2 (3.5-5.1) mmol/L Chloride 110 H (98-107) mmol/L Carbon Dioxide 26 (22-30) mmol/L Anion Gap 9 mmol/L BUN 36 H (9-20) mg/dL Creatinine 0.97 (0.66-1.25) mg/dL Est GFR (CKD-EPI)AfAm 83 (>60 ml/min/1.73 sqM) Est GFR (CKD-EPI)NonAf 72 (>60 ml/min/1.73 sqM) Glucose 147 H (74-99) mg/dL Calcium 10.0 (8.4-10.2) mg/dL Magnesium 1.8 (1.6-2.3) mg/dL Total Bilirubin 0.9 (0.2-1.3) mg/dL AST 51 (17-59) U/L ALT 18 (4-49) U/L Alkaline Phosphatase 48 (38-126) U/L Creatine Kinase 680 H (55-170) U/L Troponin I 0.031 (0.000-0.034) ng/mL Total Protein 7.6 (6.3-8.2) g/dL Albumin 4.7 (3.5-5.0) g/dL TSH 1.850 (0.465-4.680) mIU/L Urine Color Urine Appearance (Clear) Urine pH (5.0-8.0) Ur Specific [place] (1.001-1.035) Urine Protein (Negative) Urine Glucose (UA) (Negative) Urine Ketones (Negative) Urine Blood (Negative) Urine Nitrite (Negative) Urine Bilirubin (Negative) Urine Urobilinogen (<2.0) mg/dL Ur Leukocyte Esterase (Negative) Urine WBC (0-5) /hpf Amorphous Sediment (None) /hpf Urine Mucus (None) /hpf Serum Alcohol <10 mg/dL Coronavirus (PCR) Not Detected (Not Detectd) Disposition Clinical Impression: Weakness, Cough, Fall, Failure to thrive Disposition: ADMITTED IP TO THIS HOSP Is patient prescribed a controlled substance at d/c from ED?: No Referrals: Contreras Roberts DO [Primary Care Provider] - 1-2 days Time of Disposition: 11:51
[2020-09-01 09:50] LABS: Partial Thromboplastin Time 24.6 sec (22.0-30.0); Prothrombin Time 10.5 sec (9.0-12.0)
[2020-09-01 09:53] LABS: ALT 18 U/L (4-49); AST 51 U/L (17-59); African American GFR (CKD) 83 (>60 ml/min/1.73 sqM); Albumin 4.7 g/dL (3.5-5.0); Alcohol <10 mg/dL; Alkaline Phosphatase 48 U/L (38-126); Amorphous Sediment,Urine Occasional /hpf; Anion Gap 9 mmol/L; Appearance,Urine Cloudy (Clear); Bilirubin,Urine Negative (Negative); Blood Urea Nitrogen 36 mg/dL (9-20); Blood,Urine Negative (Negative); Carbon Dioxide 26 mmol/L (22-30); Chloride 110 mmol/L (98-107); Color,Urine Yellow; Creatine Kinase 680 U/L (55-170); Glucose 147 mg/dL (74-99); Glucose,Urine (UA) Negative (Negative); Ketones,Urine Negative (Negative); Leukocyte Esterase,Urine Negative (Negative); Magnesium 1.8 mg/dL (1.6-2.3); Mucus,Urine Rare /hpf; Nitrite,Urine Negative (Negative); Non-African American GFR(CKD) 72 (>60 ml/min/1.73 sqM); PH, Urine 7.5 (5.0-8.0); Potassium 4.2 mmol/L (3.5-5.1); Protein,Urine 1+ (Negative); Sodium 145 mmol/L (137-145); Specific Gravity,Urine 1.021 (1.001-1.035); Total Bilirubin 0.9 mg/dL (0.2-1.3); Total Protein 7.6 g/dL (6.3-8.2); Urobilinogen,Urine <2.0 mg/dL (<2.0); WBC,Urine 4 /hpf (0-5)
--- NOTE | 2020-09-01 10:09 | CT ---
EXAMINATION TYPE: CT brain zamzam berman DATE OF EXAM: 09/01/2020 COMPARISON: 03/18/2020 HISTORY: 85-year-old male with pain after Fall CT DLP: 1362.4 mGycm Automated exposure control for dose reduction was used. Technique: Examination of the head was done in axial plane without intravenous contrast. Coronal and sagittal reconstructions performed. CT of the cervical spine was obtained in axial plane without intravenous injection of contrast mater ial. Coronal and sagittal reformatted images were obtained from the axial views for evaluation of f ractures, spinal alignment and canal. FINDINGS: Head: There is no evidence of acute intracranial hemorrhage, acute ischemic changes, mass, mass-effect, or extra-axial fluid collection. There is no effacement of cerebral sulci or basal subarachnoid cister ns. There is no midline shift. Marquez-white matter distinction is preserved. Rightward septal deviation. Mild mucosal thickening ethmoid air cells. Orbits and globes are intact. Moderate generalized supratentorial volume loss. Mild to moderate hydrocephalus with Jhonathan's ratio of 0.43 stable to minimally increased from 03/18/2020. Moderate confluent white matter hypodensities in both cerebral hemispheres. Cervical spine: Some septal lines in the visualized upper lungs. Background of at least moderate emphysema. Patchy ch anges within the left upper lobe are new from 03/18/2020. 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 Some heterotopic ossification along the posterio r midline at the C4-C5 level is unchanged. Moderately advanced disc/endplate degenerative changes especially from C4 through C7 levels. Degenerative grade 1 anterolisthesis C3-C4 and grade 1 retrolisthesis C5-C6. Hypertrophic facet and uncovertebral joint arthropathy, greater on the left. No acute fracture of the cervical spine. Variable moderate bilateral neuroforaminal stenosis Sagittal and coronal reformatted images confirm above findings. COMBINED IMPRESSION: 1. Mild to moderate hydrocephalus which may in part relate to central cerebral atrophy. This is relat ively stable to minimally progressed from 03/18/2020. Correlate for a component of NPH. Confluent bur den of chronic small vessel ischemic disease. 2. No acute intracranial abnormality seen. 3. No acute fracture of the cervical spine. 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 Mode rate to advanced spondylotic change with degenerative grade 1 spondylolisthesis C3-C4 and C5-C6. 4. Chest radiograph can further assess changes of COPD, upper lung septal lines, and possible develop ing infiltrate in the left upper lobe. CHF versus pneumonia are considerations.
--- NOTE | 2020-09-01 10:12 | XR ---
EXAMINATION TYPE: XR chest 2V DATE OF EXAM: 09/01/2020 COMPARISON: NONE TECHNIQUE: PA and lateral views submitted. HISTORY: Weakness and chest pain FINDINGS: The lungs are clear and there is no pneumothorax, pleural effusion, or focal pneumonia. There are c hronic appearing rib fractures on the right. Diffuse osteopenia and postsurgical change left humerus. Hyperinflation suggests COPD. Heart size normal. No overt failure. Atherosclerotic change aorta. Chr onic appearing left-sided rib deformities also suggested. Degenerative change of the spine. IMPRESSION: 1. COPD with bilateral chronic appearing rib deformities..
--- NOTE | 2020-09-01 10:13 | XR ---
EXAM TYPE: LUMBAR SPINE X RAY SERIES COMPARISON: NONE HISTORY: Pain TECHNIQUE: 3 views submitted views are submitted. FINDINGS: Alignment is anatomic. The pedicles are intact. The transverse processes are intact. There is scol iotic curvature with hypertrophic and degenerative changes. Vascular calcifications are seen. There i s multilevel severe degenerative disc disease with superior endplate compression fractures of T12 and L1 of indeterminate age. IMPRESSION: 1. Scoliosis with multilevel severe degenerative disc disease. 2. There is superior endplate compression fractures of indeterminate age T12 and L1 correlate clinica lly.
--- NOTE | 2020-09-01 10:15 | XR ---
EXAMINATION TYPE: XR pelvis AP view DATE OF EXAM: 09/01/2020 COMPARISON: 01/04/2016 HISTORY: Fall, pain TECHNIQUE: AP pelvis FINDINGS: There is a large fecal bolus at the rectum. Stable appearing bone island is in the symphysi s pubis. Left hip prosthesis is present. Sacroiliac joints are patent. Femoral head articulates with the acetabulum on right. Some joint space narrowing is present. No acute fractures are identified. IMPRESSION: 1. No acute posttraumatic changes
[2020-09-01] MEDS ORDERED: LORazepam 2 MG/ML INJ IV STA (10:28)
[2020-09-01] MEDS ORDERED: lisinopriL 10 MG TAB PO STA (10:28)
--- NOTE | 2020-09-01 11:29 | CT ---
EXAMINATION TYPE: CT lumbar spine wo con DATE OF EXAM: 09/01/2020 COMPARISON: Radiographs 09/01/2020 HISTORY: 85-year-old male pain after fall, abnormal lumbar xray TECHNIQUE: Contiguous axial scanning of the lumbar spine without IV contrast. Coronal and sagittal re constructions performed. CT DLP: 667.4 mGycm Automated exposure control for dose reduction was used. FINDINGS: Left hip arthroplasty. Degenerated dextro convex scoliosis of the lumbar spine. Tiny hiatal hernia. Prostatic calcifications throughout the abdominal aorta and iliac arteries. Sigmo id diverticulosis. Severe distention of the urinary bladder is partially visualized. Unable to exclud e some abnormal mural base thickening along the right posterior aspect of the bladder, partially visu alized, reference axial image 89. Hypertrophic facet arthropathy throughout. Moderate multilevel degenerative disc disease. Superior endplate deformities of T12 and L1 have a chronic appearance. No paravertebral soft tissue h ematoma. No retropulsion into the spinal canal. Disc bulge at L1-L2 mildly narrows the spinal canal. Additional disc bulge and ligamentum flavum thic kening at L4-L5 mildly narrows the spinal canal. No wendy canal compromise identified by CT. On the left, there is moderate neuroforaminal narrowing at L1-L2, L2-L3, L3-L4, L4-L5, mild at L5-S1. On the right, there is moderate to severe neuroforaminal narrowing at L4-L5 and L5-S1, moderate at L3 -L4. IMPRESSION: 1. SUPERIOR ENDPLATE DEFORMITIES OF T12 AND L1 HAVE A CHRONIC APPEARANCE. NO RETROPULSION INTO THE SP INAL CANAL. NO PARAVERTEBRAL HEMATOMA OR SOFT TISSUE SWELLING. CLINICAL CORRELATION RECOMMENDED. 2. DEGENERATED EXTRA CONVEX SCOLIOSIS. MILD SPINAL CANAL STENOSES AT L1-L2 AND L4-L5. NO HIGH-GRADE C ANAL COMPROMISE APPRECIATED BY CT. 3. VARIABLE MODERATE NEUROFORAMINAL STENOSES OUTLINED ABOVE, MODERATE TO SEVERE ON THE RIGHT AT L4 -L5 AND L5-S1. 4. NOTE, PARTIALLY VISUALIZED SEVERE DISTENTION OF THE URINARY BLADDER. CORRELATE FOR BLADDER OUTLET OBSTRUCTION/URINARY RETENTION. IN ADDITION, THERE MAY BE SOME ABNORMAL UROTHELIAL THICKENING ALONG TH E LEFT POSTERIOR ASPECT OF THE BLADDER, AXIAL IMAGE 89. RELATE WITH URINE CYTOLOGY AND URINALYSIS. DI RECT VISUALIZATION CAN BE CONSIDERED DEPENDING ON RESULTS.
[2020-09-01] MEDS ORDERED: AZITHROMYCIN 500 MG in SODIUM CHLORIDE 0.9% 250 ML IVPB STA (11:56)
[2020-09-01] MEDS ORDERED: cefTRIAXone IN SWFI 1,000 MG/10 ML SYRINGE IVP STA (11:56)
[2020-09-01] MEDS ORDERED: NALOXONE 0.4 MG/ML 1 ML VIAL IV PRN (11:58)
[2020-09-01] MEDS ORDERED: IBUPROFEN 800 MG TAB PO PRN (12:00)
[2020-09-01] MEDS ORDERED: ACETAMINOPHEN TAB 500 MG TAB PO PRN (12:00)
[2020-09-01] MEDS: SODIUM CHLORIDE 0.9% 1,000 ML IV SCH (12:21)
[2020-09-01] MEDS ORDERED: DOXYCYCLINE 100 MG in SODIUM CHLORIDE 0.9% 100 ML IVPB SCH ×2 (13:00→14:30)
--- NOTE | 2020-09-01 17:45 | P.HPIM ---
History of Present Illness H&P Date: 09/01/20 Chief Complaint: Found on the bathroom floor History of presenting complaint: This is a 85-year-old patient who follows with Dr. Roberts. Patient has a history of frequent falls. Patient lives in an assisted living where he is normally helped with his medications. The ventilator given his medications this morning and he was found on the bathroom floor. They believe he was there from 8 PM the previous night. He reported that he had fallen because brakes went out of his cart. Denied reporting hitting his head. Patient normally AO 3 but was found to be slightly confused. Was unable to get up. EMS had to help him out. Patient has chronic low back pain. Has a rather congested cough. Shortness of breath. Some wheezing. Patient is not a good historian. Patient has a long- standing history of drinking alcohol or smoking. Has had prior admissions with fall. Review of systems: GEN.: Tired EYES: None HEENT: None NECK: None RESPIRATORY: Short of breath cough congested CARDIOVASCULAR: None GASTROINTESTINAL: None GENITOURINARY: None MUSCULOSKELETAL: Generalized muscle weakness LYMPHATICS: None HEMATOLOGICAL: None PSYCHIATRY: None NEUROLOGICAL: No focal weakness. Past medical history to include: COPD, depression, osteoarthritis, chronic alcohol dependence, cigarette smoking, hypertension, hyperlipidemia, irregular sleep pattern, Social history: Lives at [facility]. Long-standing history of alcohol intake and also smoking cigarettes. Has a walker Physical examination: VITAL SIGNS: 98.6, 94, 22, 1 40 x 1 03, 92% on room air-upon presentation] GENERAL: BMI 22.2, muscle muscle mass and subcutaneous fat slightly confused. EYES: Pupils equal. Conjunctiva normal. HEENT: External appearance of nose and ears normal, oral cavity dry. NECK: JVD not raised; masses not palpable. HEART: First and second heart sounds are normal; no edema. LUNGS: Respiratory rate increased; decreased breath sound some basal crackles. ABDOMEN: Soft, nontender, liver spleen not palpable, no masses palpable. PSYCH: [Only able to answer some questions, altered sensorium MUSCULAR skeletal: Decreased muscle mass NEUROLOGICAL: Cranial nerves grossly intact; no facial asymmetry, power and sensation grossly intact. LYMPHATICS: No lymph nodes palpable in the axilla and neck INVESTIGATIONS, reviewed in the clinical context: WBC 10.1 hemoglobin 13.6 platelets 365 potassium 4.2 creatinine 0.97 Blood glucose 147. Serum alcohol less than 10 Coronavirus [PCF]: Not detected Chest x-ray film personally reviewed by me-hyperinflation. Possible infiltrate CT lumbar spine: Supple. Endplate deformity of T12-L1, scoliosis, neuro following last stenosis, bladder distention Computed tomography scan of the brain: Mild to moderate hydrocephalus, spondylo- lytic changes Assessment and plan: -Fall secondary to acute medical debility on chronic medical debility multifactorial. Patient has alcoholic myopathy, nutritional myopathy. Fall precautions. Bedrest -Pneumonia, suspect gram-negative organism IV ceftriaxone -Acute delirium and metabolic encephalopathy Rule out seizures. We'll do an EEG -Alcoholic and nutritional myopathy PTOT -Acute COPD exacerbation, and a current smoker DuoNeb, inhaled steroids and long-acting beta agonist -Chronic B12 deficiency -Vitamin B12 supplement -Essential hypertension Continue with Zestril -Chronic nicotine dependence Nicotine patch -Assess for cognitive impairment and patient is most stable. Differential includes alcohol-induced dementia, normal pressure hydrocephalus, B12 deficiency, Fall precautions, bedrest, EEG, IV ceftriaxone, nebulized bronchodilators steroids, PTOT. Consult renal case manager. Given the complexity and severity of patient's condition expect the patient to be in the hospital at least for 2 overnights Past Medical History Past Medical History: CVA/TIA, Hyperlipidemia, Hypertension, Osteoarthritis (OA) Additional Past Medical History / Comment(s): tia, alcoholic, freq falls. past lt humeral/lt femur fx, kidney stone 40 plus years ago. at times tremors, irreg sleep pattern History of Any Multi-Drug Resistant Organisms: None Reported Past Surgical History: Hernia Repair, Joint Replacement, Orthopedic Surgery Additional Past Surgical History / Comment(s): SHOULDER LEFT 25 YEARS AGO, lt hip hemiarthroplasty Past Anesthesia/Blood Transfusion Reactions: No Reported Reaction Past Psychological History: Depression Smoking Status: Current every day smoker Past Alcohol Use History: Daily Past Drug Use History: None Reported - Past Family History Mother Family Medical History: Hypertension Father Additional Family Medical History / Comment(s): in [facility] when pt was 11 years old Medications and Allergies Home Medications Medication Instructions Recorded Confirmed Type Citalopram Hydrobromide [CeleXA] 30 mg PO DAILY 04/16/14 09/01/20 History lisinopriL [Zestril] 10 mg PO DAILY 04/16/14 09/01/20 History Multivitamins, Thera [Multivitamin 1 tab PO DAILY 05/06/18 09/01/20 History (formulary)] Aspirin EC [Ecotrin Low Dose] 81 mg PO DAILY 03/18/20 09/01/20 History Cyanocobalamin (Vitamin B-12) 1,000 mcg PO DAILY 03/18/20 09/01/20 History [Vitamin B-12] Fenofibrate Nanocrystallized 145 mg PO HS 03/18/20 09/01/20 History [Fenofibrate] Acetaminophen Tab [Tylenol Tab] 500 - 1,000 mg PO Q8H PRN MDD 3gm 09/01/20 09/01/20 History Cholecalciferol [Vitamin D3 (25 25 mcg PO DAILY 09/01/20 09/01/20 History Mcg = 1000 Iu)] Ibuprofen [Motrin] 800 mg PO DAILY PRN 09/01/20 09/01/20 History Allergies Allergy/AdvReac Type Severity Reaction Status Date / Time adhesive tape Allergy Rash/Hives Verified 09/01/20 10:30 Physical Exam Vitals: Vital Signs Temp Pulse Resp BP Pulse Ox 09/01/20 14:15 84 18 136/81 96 09/01/20 12:26 92 22 139/87 96 09/01/20 11:33 93 20 176/100 95 09/01/20 10:15 95 20 189/109 95 09/01/20 09:06 98.6 F 94 22 140/103 92 L Intake and Output 09/01/20 09/01/20 09/01/20 06:59 14:59 22:59 Output Total 906 Balance -906 Output: Post Void Residual 906 Other: Weight 68.039 kg Results CBC & Chem 7: 09/01/20 09:27 09/01/20 09:27 Labs: Abnormal Lab Results - Last 24 Hours (Table) 09/01/20 09/01/20 09/01/20 Range/Units 09:27 09:27 09:27 Neutrophils # 8.5 H (1.3-7.7) k/uL Lymphocytes # 0.9 L (1.0-4.8) k/uL Chloride 110 H (98-107) mmol/L BUN 36 H (9-20) mg/dL Glucose 147 H (74-99) mg/dL Creatine Kinase 680 H (55-170) U/L Urine Protein 1+ H (Negative) Amorphous Sediment Occasional H (None) /hpf Urine Mucus Rare H (None) /hpf
[2020-09-01] MEDS: IPRATROPIUM-ALBUTEROL 3 ML NEB INHALATION SCH (19:40)
[2020-09-01] MEDS: BUDESONIDE 1 MG/2 ML NEBU INHALATION SCH (19:40)
[2020-09-01] MEDS: FORMOTEROL FUMARATE 20 MCG/2 ML NEBU INHALATION SCH (19:47)
[2020-09-01] MEDS: FOLIC ACID 1 MG TAB PO SCH (20:05)
[2020-09-01] MEDS: guaiFENesin 600 MG TABLET.ER PO SCH ×2 (20:05→20:52)
[2020-09-01] MEDS: ENOXAPARIN 40 MG/0.4 ML SYRINGE SQ SCH (20:05)
[2020-09-01] MEDS: NICOTINE 21MG/24HR PATCH TRANSDERM SCH (20:05)
[2020-09-01] MEDS: THIAMINE 100 MG TAB PO SCH (20:05)
[2020-09-01] MEDS: FENOFIBRATE 160 MG TAB PO SCH (20:52)
[2020-09-02] MEDS: ASPIRIN 81 MG PO SCH (08:29)
[2020-09-02] MEDS: CHOLECALCIFEROL 25 MCG (1000 IU) TABLET PO SCH (08:29)
[2020-09-02] MEDS: FOLIC ACID 1 MG TAB PO SCH (08:29)
[2020-09-02] MEDS: CYANOCOBALAMIN 500 MCG TAB PO SCH (08:29)
[2020-09-02] MEDS: CITALOPRAM HYDROBROMIDE 10 MG TAB PO SCH (08:29)
[2020-09-02] MEDS: THIAMINE 100 MG TAB PO SCH (08:29)
[2020-09-02] MEDS: guaiFENesin 600 MG TABLET.ER PO SCH ×4 (08:29→21:47)
[2020-09-02] MEDS: lisinopriL 10 MG TAB PO SCH (08:29)
[2020-09-02] MEDS: MULTIVITAMINS, THERA 1 EACH TAB PO SCH (08:29)
[2020-09-02] MEDS: ENOXAPARIN 40 MG/0.4 ML SYRINGE SQ SCH (08:30)
[2020-09-02] MEDS: NICOTINE 21MG/24HR PATCH TRANSDERM SCH (08:30)
[2020-09-02] MEDS: IPRATROPIUM-ALBUTEROL 3 ML NEB INHALATION SCH ×4 (08:59→20:53)
[2020-09-02] MEDS: BUDESONIDE 1 MG/2 ML NEBU INHALATION SCH ×2 (08:59→20:53)
[2020-09-02] MEDS: FORMOTEROL FUMARATE 20 MCG/2 ML NEBU INHALATION SCH ×2 (09:00→20:53)
[2020-09-02] MEDS: SODIUM CHLORIDE 0.9% 1,000 ML IV SCH (11:15)
--- NOTE | 2020-09-02 13:01 | P.CNNES ---
History of Present Illness Consult date: 09/02/20 Requesting physician: John Jaquez Reason for Consult: altered sensorium History of Present Illness: This is an 85-year-old gentleman with history of hypertension, hyperlipidemia, chronic alcohol use, frequent falls who presented to the emergency department on 09/01/2020 for a fall episode that. Some of the history is obtained from medical records. It seems that the patient lives in assisted living facility where they are able to help him with medications. The staff at the assisted living facility were about to give him his AM medication on 09/01/2020 and he was found on the bathroom. Patient believes he fell since 8 PM the last night prior and it's reported that he felt he fell because of his walker. He said he lost his prior walker and his daughter had to buy another one that did not have brakes. He denies any loss of consciousness per the ED note but per primary team it was felt he was found confused by primary team. But since he fell he could not get up off the ground. As a result EMS was called and he was a 2 person assist and he stated prior to that he was a able to put weight on his legs. He does state that he has chronic back pain but nothing acute. I spoke with the patient's daughter (Heaven) via phone: She stated the patient has been falling episodes for the past 3 years. He had a fall and as result injured left upper extremity and was on the floor for few days and result has injury to muscles of the left upper extremity. She denied patient having history of stroke or TIA to her knowledge. The patient notified daughter that he had urinary accident in last couple months. His memory has been declining and per daughter feels he is having remember known people. He has severe alcohol use for ears and was drinking under the influence but they she stated since being on the assitant living facility she believes he has not been drinking. Patient feels he is drinking 2 cans of beer per day but daughter stated she buys him nonalcoholic drinks. Some other workup in the hospital consisted of: Initial vital signs: Blood pressure of 140/103, heart rate of 94, respiratory of 22, temperature of 98.6 Fahrenheit oral and pulse ox of 92% on 2 L of nasal cannula. CT of the head is reported as mild to moderate hydrocephalus which may be in part related to central cerebral atrophy. This is relatively stable to minimally progressed from 03/18/2020. Correlate for component of NPH. Confluent burden of chronic small vessel ischemic disease. No acute into her intracranial abnormality seen. While the CT of the cervical spine was reported as no acute fracture of the cervical spine. 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 Moderate to advanced spondylitic changes with degenerative grade 1 spondylolysis C3 to C4 and C5 to C6. Chest radiograph can further assess changes of COPD, upper or long septal lines, and possible developing infiltrate in the left upper lobe. Congestive heart fair versus pneumonia our consideration. CT lumbar is reported as superior endplate deformities of T12 and L1 have a chronic appearance. No retropulsion into the spinal canal. No paravertebral hematoma or soft tissue swelling. Clinical correlation recommended. Degenera tive extra convex scoliosis. Mild spinal canal stenosis at L1 to L2 and L4 to L5. No high-grade canal compromise appreciated by the CT. Variable moderate neuroforaminal stenosis at L1 above, moderate to severe on the right at the L4- L5 and L5-S1. Note partially visualized severe distention of the urinary bladder correlate for bladder outlet obstruction/urinary retention.... Initial CBC with differential seems unremarkable. Chemistry panel the glucose is 147 and the CK is 680 which is slightly elevated otherwise the chemistry panel is unremarkable. TSH is 1.850 which is normal. Calcium is 10.0, magnesium is 1.8, AST 51 in the ALTs 18 which are all normal. Review of Systems Review of system: The 12 point system was reviewed and apparent positive and negative per HPI. Past Medical History Past Medical History: CVA/TIA, Hyperlipidemia, Hypertension, Osteoarthritis (OA) Additional Past Medical History / Comment(s): tia, alcoholic, freq falls. past lt humeral/lt femur fx, kidney stone 40 plus years ago. at times tremors, irreg sleep pattern History of Any Multi-Drug Resistant Organisms: None Reported Past Surgical History: Hernia Repair, Joint Replacement, Orthopedic Surgery Additional Past Surgical History / Comment(s): SHOULDER LEFT 25 YEARS AGO, lt hip hemiarthroplasty Past Anesthesia/Blood Transfusion Reactions: No Reported Reaction Past Psychological History: Depression Additional Psychological History / Comment(s): pt lives at [facility] Smoking Status: Current every day smoker Past Alcohol Use History: Daily Additional Past Alcohol Use History / Comment(s): Patient is a smoker of 3 packs per day since he was 13 years of age. He is drinking a 12 pack of beer per day for a long period of time. Rare use now residing at [facility] Past Drug Use History: None Reported - Past Family History Mother Family Medical History: Hypertension Father Additional Family Medical History / Comment(s): in [facility] pt was 11 years old Medications and Allergies Home Medications Medication Instructions Recorded Confirmed Type Citalopram Hydrobromide [CeleXA] 30 mg PO DAILY 04/16/14 09/01/20 History lisinopriL [Zestril] 10 mg PO DAILY 04/16/14 09/01/20 History Multivitamins, Thera [Multivitamin 1 tab PO DAILY 05/06/18 09/01/20 History (formulary)] Aspirin EC [Ecotrin Low Dose] 81 mg PO DAILY 03/18/20 09/01/20 History Cyanocobalamin (Vitamin B-12) 1,000 mcg PO DAILY 03/18/20 09/01/20 History [Vitamin B-12] Fenofibrate Nanocrystallized 145 mg PO HS 03/18/20 09/01/20 History [Fenofibrate] Acetaminophen Tab [Tylenol Tab] 500 - 1,000 mg PO Q8H PRN MDD 3gm 09/01/20 09/01/20 History Cholecalciferol [Vitamin D3 (25 25 mcg PO DAILY 09/01/20 09/01/20 History Mcg = 1000 Iu)] Ibuprofen [Motrin] 800 mg PO DAILY PRN 09/01/20 09/01/20 History Allergies Allergy/AdvReac Type Severity Reaction Status Date / Time adhesive tape Allergy Rash/Hives Verified 09/01/20 10:30 Physical Examination - Vital Signs Vital Signs: Vital Signs Temp Pulse Pulse Resp BP BP Pulse Ox 09/02/20 09:23 77 09/02/20 09:14 86 09/02/20 09:01 86 09/02/20 08:35 98.0 F 81 17 166/89 95 09/02/20 02:00 98.2 F 83 18 126/68 91 L 09/01/20 19:51 85 09/01/20 19:47 85 09/01/20 19:42 84 09/01/20 19:37 98.6 F 92 18 143/74 96 09/01/20 17:30 98.1 F 96 18 117/79 95 09/01/20 14:15 84 18 136/81 96 09/01/20 12:26 92 22 139/87 96 09/01/20 11:33 93 20 176/100 95 Intake and Output 09/01/20 09/02/20 09/02/20 22:59 06:59 14:59 Intake Total 210 Output Total 1000 1 Balance -1000 -1 210 Intake: Intake, IV Titration 210 Amount Sodium Chloride 0.9% 1, 160 000 ml @ 20 mls/hr IV . Q24H [facility] Rx#:[id number] cefTRIAXone 1 gm In 50 Sodium Chloride 0.9% 50 ml @ 100 mls/hr IVPB Q12H [facility] Rx#:[id number] Output: Urine 1000 Stool 1 Other: Voiding Method Indwelling Catheter Weight 68.039 kg GENERAL: The patient is lying in bed and is not in acute distress. CHEST: The heart rate is regular rate rhythm. No murmurs to auscultation. No carotid bruit bilaterally. LUNG: Clear to auscultation bilaterally no wheezing noted throughout. Not labored breathing. ABDOMEN/GI: Bowel sounds present in all 4 quadrants. No tenderness to palpation throughout. NEUROLOGICAL: Higher mental function: The patient is awake, alert, oriented to self, place. He stated the month is August but the year is 2019. He is able to identify objects such as pen, watch and glasses. . Patient is following commands. No aphasia and no neglect. Cranial nerves: The pupils are round, equal and reactive to light and accommodation. Visual guerin are full to confrontation throughout. Extraocular movement is intact no nystagmus is noted. Facial sensation is normal to touch throughout. The facial strength is normal throughout. Hearing is moderately decreased bilaterally to hand rub. Tongue is midline and moved [id number] without any difficulty. No dysarthria is noted. Shoulder shrug is normal bilaterally. Motor: Gait is deferred since he is getting a test. The strength is spastic over the left forearm/hand with atrophy (old per daughter from old injury to left upper extremity and not stroke). Otherwise 5 over 5 throughout. Normal tone and bulk. Cerebellum: Normal finger to nose bilaterally. Sensation: Sensation is normal to touch throughout. Reflexes (right/left):3++ throughout upper but could not assess lower because of his cooperation. Plantars are downgoing bilaterally. Results Urinalysis is negative for urinary tract infection. Serum alcohol was less than 10. Cuello virus PCR was not detected - Laboratory Findings CBC and BMP: 09/01/20 09:27 09/01/20 09:27 Abnormal Lab Findings: Abnormal Labs 09/01/20 09/01/20 09/01/20 09:27 09:27 09:27 Neutrophils # 8.5 H Lymphocytes # 0.9 L Chloride 110 H BUN 36 H Glucose 147 H Creatine Kinase 680 H Urine Protein 1+ H Amorphous Sediment Occasional H Urine Mucus Rare H Assessment and Plan Assessment: * Altered mental status. Possibly due to septic encpehalpathy (from underlying suspected pneumonia)--mentation improved * Recurrent falls. Seems multifactorial: Due to component of Normal pressure hydrocephalus, chronic Alcohol use, compoenent cervical and lumbosacral spondylosis. * Seems to have possible Normal pressure hydrocephalus (has 3 year history of falls, in last couple month has urinary incontinence and in last one month some memory loss). * Old left upper extremity spasticity and atrophy. He had a old fall leading to spasticity and atrophy (per daughter he had a fall and injured left upper extremity and was on floor for days. 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 Moderate to advanced spondylitic changes with degenerative grade 1 spondylolysis C3 to C4 and C5 to C6) * Lumbosacral spondylosis (moderate to severe on the right at the L4-L5 and L5- S1) * Suspected hydroneprhrosis * Hypertension * Hyperlipidemia * Chronic Alcohol use (per daughter she stated he has not been drinking to her knowledge in past 2 years) * Chronic nicotine dependence Plan: * An EEG is ordered by the primary team. I will not start the patient on antiepileptic drugs since there is no epileptiform discharges or seizure on the EEG. * I ordered vitamin B12 and folate level. TSH is 1.850 which is normal. It is likely the patient has vitamin B12 deficiency and is on vitamin B 12 1000 g daily and the patient is also on folic acid 0.5 mg daily. Not sure when the patient was given that diagnosis and what was his lab values. * Patient is on thiamine 100 mg daily and this should be continued. * PT and OT are consulted. * Regarding the possible normal pressure hydrocephalus: The patient and his daughter do no want to pursue with any surgical intervention. * Regarding the cervical and lumbar spondylosis, also patient and his daughter do not want to pursue with any surgical intervention. * Patient was counseled on continous alcohol cessation. * The patient was given Ativan 0.5 mg as well as morphine 2 mg once. Please avoids any sedations/narcotic/opiate that would affect the patient's neurologist on examination as well as it increases the risk of falls. * We'll defer the rest of the medical measure to the primary team. The plan is discussed with the patient's daughter (Heaven via phone) and the primary team. Thank you for the consultation. Israel Velazquez M.D. Neuro-hospitalist Time with Patient: Greater than 30
[2020-09-02 13:05] VITALS: BMI 22.1
--- NOTE | 2020-09-02 14:42 | CDI ---
Documentation Clarification Form Date: 09/02/2020 02:28:22 PM From: Tarsha Rico CCS, CCDS Admit Date: 09/01/2020 11:58:00 AM Patient Name: Koffi Cardoso Visit Number: [id number] Discharge Date: ATTENTION: The Clinical Documentation Specialists (CDI) and [facility] Coding Staff appreciate your assistance in clarifying documentation. Please respond to the clarification below the line at the bottom and electronically sign. The CDI & [facility] Coding staff will review the response and follow-up if needed. Please note: Queries are made part of the Legal Health Record. If you have any questions, please contact the author of this message via ITS. Dr. 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 Based on this information and the findings below, is there an additional diagnosis that is clinically appropriate for this patient? History/Risk Factors per the 09/01 H/P: Resides in [facility] and has a history of Frequent Falls, Chronic low back pain, COPD, Depression, Osteoarthritis, Chronic Alcohol Dependence, Hypertension, Hyperlipidemia, Irregular sleep pattern, Cigarette Smoker. Clinical Indicators: Presented to the ED on 09/01 via EMS after a fall at the [facility], found on the bathroom floor, may have been on the floor since the previous evening. ED Clinical Impression, Weakness, Cough, Fall, Failure to Thrive 09/01 H/P: Decreased power in all muscles. Left arm claw-hand. Patient has alcoholic myopathy, nutritional myopathy. 09/01 VS: T 98.6, P 94, R 22, BP 140/103, PO 92 2Lnc BMI: 22.2 09/01 LAB: Neut 8.5, Lymph 0.9, Cl 110, BUN 36, Cr 0.97, Glucose 147, Cr Kinase 680, Total Protein 7.6, Albumin 4.7 09/01 Serum Alcohol <10 09/01 [address] Brain: Mild - moderate hydrocephalus. CXR: COPD with bilateral chronic appearing rib deformities. Spine XR: Scoliosis w/multilevel severe DDD, Superior endplate compression fractures of T12 & L1. Pelvic XR: negative. Treatment: IV fluid bolus 500 mls @ 999 mls/hr q31M, IV Morphine, IV Ativan, IV Rocephin, IV fluid 1,000 mls @ 20 mls/hr q24H, IV Doxycycline Hyclate. 09/02 Dietitian consult: Appetite: Fair. Diet: Regular. Nutritional Intake: Poor, consumed -25%. Unable to use his left hand. Oral Supplements: Ensure Complete TID. Weight: 68.039 kg (bedscale), Height 5 ft 9 in. BMI: 22.1 Calculate IBW: 72.7 % IBW: 94%. Nutrition Diagnosis: Moderate Malnutrition related to decreased appetite. Is there an additional diagnosis that is clinically appropriate for this patient? [ ] Mild Protein-Calorie Malnutrition [ ] Moderate Protein-Calorie Malnutrition [ ] Other condition, please specify [ ] Unable to Determine (Template Last Revised: May 2020) Moderate protein calorie malnutrition, from decreased oral intake MTDD
--- NOTE | 2020-09-02 18:21 | EEG ---
ELECTROENCEPHALOGRAM REPORT DATE OF SERVICE: 09/02/2020 CLINICAL HISTORY: This is an 85-year-old gentleman with episode of altered mental status. This video EEG is obtained to evaluate for seizure and epileptiform activity. RELEVANT MEDICATION: The patient is not on any antiepileptic drugs. EEG TYPE: A routine 21 channel EEG is performed with video using the 10/20 electrode placement system. DESCRIPTION: Wakefulness is only obtained. During wakefulness, there is a posterior dominant rhythm of low to moderate voltage, reactive, well modulated, of 7 hertz activity. There is no physiological sleep architecture seen. There is no focal slowing seen. Interictal or ictal is none. ACTIVATION PROCEDURE: Photic stimulation did not evoke a posterior driving response. Hyperventilation is not performed. CLINICAL INTERPRETATION: This is an abnormal routine EEG. The mild slowing is suggestive of mild encephalopathy. There are no focal slowings, epileptiform discharges or seizure on the EEG. Clinical correlation is recommended. MOOKIE / OSCARN: [id number] / SUNNY
--- NOTE | 2020-09-02 19:26 | P.CNPUL ---
History of Present Illness Consult date: 09/02/20 Reason for consult: COPD Chief complaint: Altered mental status and fall History of present illness: Patient is a pleasant 85-year-old male, admitted into the hospital for falls and generalized weakness patient has ongoing chronic history of shortness of breath or better and cough, overall poor historian not much data can be obtained from him, patient has a long-standing history of smoking and ethanol use, chest x-ray performed revealed infiltrate and hyperinflation also rib fracture on the right side likely old and chronic Review of Systems All systems: negative Past Medical History Past Medical History: CVA/TIA, Hyperlipidemia, Hypertension, Osteoarthritis (OA) Additional Past Medical History / Comment(s): tia, alcoholic, freq falls. past lt humeral/lt femur fx, kidney stone 40 plus years ago. at times tremors, irreg sleep pattern History of Any Multi-Drug Resistant Organisms: None Reported Past Surgical History: Hernia Repair, Joint Replacement, Orthopedic Surgery Additional Past Surgical History / Comment(s): SHOULDER LEFT 25 YEARS AGO, lt hip hemiarthroplasty Past Anesthesia/Blood Transfusion Reactions: No Reported Reaction Past Psychological History: Depression Additional Psychological History / Comment(s): pt lives at [facility] Smoking Status: Current every day smoker Past Alcohol Use History: Daily Additional Past Alcohol Use History / Comment(s): Patient is a smoker of 3 packs per day since he was 13 years of age. He is drinking a 12 pack of beer per day for a long period of time. Rare use now residing at [facility] Past Drug Use History: None Reported - Past Family History Mother Family Medical History: Hypertension Father Additional Family Medical History / Comment(s): [facility] pt was 11 years old Medications and Allergies Home Medications Medication Instructions Recorded Confirmed Type Citalopram Hydrobromide [CeleXA] 30 mg PO DAILY 04/16/14 09/01/20 History lisinopriL [Zestril] 10 mg PO DAILY 04/16/14 09/01/20 History Multivitamins, Thera [Multivitamin 1 tab PO DAILY 05/06/18 09/01/20 History (formulary)] Aspirin EC [Ecotrin Low Dose] 81 mg PO DAILY 03/18/20 09/01/20 History Cyanocobalamin (Vitamin B-12) 1,000 mcg PO DAILY 03/18/20 09/01/20 History [Vitamin B-12] Fenofibrate Nanocrystallized 145 mg PO HS 03/18/20 09/01/20 History [Fenofibrate] Acetaminophen Tab [Tylenol Tab] 500 - 1,000 mg PO Q8H PRN MDD 3gm 09/01/20 09/01/20 History Cholecalciferol [Vitamin D3 (25 25 mcg PO DAILY 09/01/20 09/01/20 History Mcg = 1000 Iu)] Ibuprofen [Motrin] 800 mg PO DAILY PRN 09/01/20 09/01/20 History Allergies Allergy/AdvReac Type Severity Reaction Status Date / Time adhesive tape Allergy Rash/Hives Verified 09/01/20 10:30 Physical Exam Vitals: Vital Signs Temp Pulse Pulse Resp BP BP Pulse Ox 09/02/20 16:55 80 16 09/02/20 16:45 78 16 94 L 09/02/20 14:00 98.0 F 78 18 150/60 94 L 09/02/20 09:23 77 09/02/20 09:14 86 09/02/20 09:01 86 09/02/20 08:35 98.0 F 81 17 166/89 95 09/02/20 02:00 98.2 F 83 18 126/68 91 L 09/01/20 19:51 85 09/01/20 19:47 85 09/01/20 19:42 84 09/01/20 19:37 98.6 F 92 18 143/74 96 Intake and Output 09/02/20 09/02/20 09/02/20 06:59 14:59 22:59 Intake Total 210 Output Total 1 Balance -1 210 Intake: Intake, IV Titration 210 Amount Sodium Chloride 0.9% 1, 160 000 ml @ 20 mls/hr IV . Q24H [facility] Rx#:[id number] cefTRIAXone 1 gm In 50 Sodium Chloride 0.9% 50 ml @ 100 mls/hr IVPB Q12H [facility] Rx#:[id number] Output: Stool 1 Other: Voiding Method Indwelling Catheter # Bowel Movements 1 Weight 68.039 kg - Constitutional General appearance: average body habitus, disheveled - EENT Eyes: EOMI, PERRLA ENT: normal oropharynx Ears: bilateral: normal - Neck Carotids: bilateral: upstroke normal - Respiratory Respiratory: bilateral: diminished - Cardiovascular Rhythm: regular Heart sounds: normal: S1, S2 - Gastrointestinal General gastrointestinal: normal bowel sounds - Integumentary Integumentary: normal, normal turgor - Musculoskeletal Musculoskeletal: generalized weakness, strength equal bilaterally - Psychiatric Psychiatric: A&O x's 3, appropriate affect, intact judgment & insight Results - Laboratory Findings CBC and BMP: 09/01/20 09:27 09/01/20 09:27 PT/INR, D-dimer PT 10.5 sec (9.0-12.0) 09/01/20 09:27 INR 1.0 (<1.2) 09/01/20 09:27 Abnormal lab findings: Abnormal Labs 09/01/20 09/01/20 09/01/20 09:27 09:27 09:27 Neutrophils # 8.5 H Lymphocytes # 0.9 L Chloride 110 H BUN 36 H Glucose 147 H Creatine Kinase 680 H Urine Protein 1+ H Amorphous Sediment Occasional H Urine Mucus Rare H - Diagnostic Findings Chest x-ray: report reviewed, image reviewed (Finding as noted above) Assessment and Plan Assessment: Altered mental status/encephalopathy Right basal pneumonia COPD with exacerbation Recurrent falls Advanced dementia and Alzheimer's disease Hypertension hypertensive cardiovascular disease Dyslipidemia Chronic long-standing use of alcohol and smoking Plan: Broad-spectrum antibiotics Bronchodilators We'll hold on steroids for now Agree with rehab evaluation and physical therapy likely will require ECF placement Further plan of care as per clinical response of the patient Time with Patient: Greater than 30
--- NOTE | 2020-09-02 20:23 | P.PN ---
Progress Note - Text Progress Note Date: 09/02/20 Chief Complaint: Found on the bathroom floor History of presenting complaint: This is a 85-year-old patient who follows with Dr. Roberts. Patient has a history of frequent falls. Patient lives in an assisted living where he is normally helped with his medications. The ventilator given his medications this morning and he was found on the bathroom floor. They believe he was there from 8 PM the previous night. He reported that he had fallen because brakes went out of his cart. Denied reporting hitting his head. Patient normally AO 3 but was found to be slightly confused. Was unable to get up. EMS had to help him out. Patient has chronic low back pain. Has a rather congested cough. Shortness of breath. Some wheezing. Patient is not a good historian. Patient has a long- standing history of drinking alcohol or smoking. Has had prior admissions with fall. Admitted with acute delirium, metabolic encephalopathy, pneumonia, acute COPD exacerbation. Started on bronchodilators, IV ceftriaxone. Today: Sitting up in a chair. Tired. On seeing some questions. Short of breath. Review of systems: Was done for constitutional, cardiovascular, GI, pulmonary. relevant finding as above Active Medications Acetaminophen (Acetaminophen Tab 500 Mg Tab) 1,000 mg PO Q8H PRN PRN Reason: Pain Albuterol/Ipratropium (Ipratropium-Albuterol 3 Ml Neb) 3 ml INHALATION RT-QID [facility] Last Admin: 09/02/20 16:44 Dose: 3 ml Documented by: Aspirin (Aspirin 81 Mg) 81 mg PO DAILY [facility] Last Admin: 09/02/20 08:29 Dose: 81 mg Documented by: Budesonide (Budesonide 1 Mg/2 Ml Nebu) 1 mg INHALATION RT-BID [facility] Last Admin: 09/02/20 08:59 Dose: 1 mg Documented by: Cholecalciferol (Cholecalciferol 25 Mcg (1000 Iu) Tablet) 25 mcg PO DAILY [facility] Last Admin: 09/02/20 08:29 Dose: 25 mcg Documented by: Citalopram Hydrobromide (Citalopram Hydrobromide 10 Mg Tab) 30 mg PO DAILY [facility] Last Admin: 09/02/20 08:29 Dose: 30 mg Documented by: Cyanocobalamin (Cyanocobalamin 500 Mcg Tab) 1,000 mcg PO DAILY [facility] Last Admin: 09/02/20 08:29 Dose: 1,000 mcg Documented by: Enoxaparin Sodium (Enoxaparin 40 Mg/0.4 Ml Syringe) 40 mg SQ DAILY [facility] Last Admin: 09/02/20 08:30 Dose: 40 mg Documented by: Fenofibrate (Fenofibrate 160 Mg Tab) 160 mg PO HS [facility] Last Admin: 09/01/20 20:52 Dose: 160 mg Documented by: Folic Acid (Folic Acid 1 Mg Tab) 0.5 mg PO DAILY [facility] Last Admin: 09/02/20 08:29 Dose: 0.5 mg Documented by: Formoterol Fumarate (Formoterol Fumarate 20 Mcg/2 Ml Nebu) 20 mcg INHALATION RT-BID [facility] Last Admin: 09/02/20 09:00 Dose: 20 mcg Documented by: Guaifenesin (Guaifenesin 600 Mg Tablet.Er) 600 mg PO QID [facility] Last Admin: 09/02/20 17:03 Dose: 600 mg Documented by: Sodium Chloride (Saline 0.9%) 1,000 mls @ 20 mls/hr IV .Q24H [facility] Last Admin: 09/02/20 11:15 Dose: 20 mls/hr Documented by: Ceftriaxone Sodium 1 gm/ (Sodium Chloride) 50 mls @ 100 mls/hr IVPB Q12H [facility] Last Admin: 09/02/20 11:15 Dose: 100 mls/hr Documented by: Ibuprofen (Ibuprofen 800 Mg Tab) 800 mg PO DAILY PRN PRN Reason: Pain Lisinopril (Lisinopril 10 Mg Tab) 10 mg PO DAILY [facility] Last Admin: 09/02/20 08:29 Dose: 10 mg Documented by: Multivitamins (Multivitamins, Thera 1 Each Tab) 1 each PO DAILY [facility] Last Admin: 09/02/20 08:29 Dose: 1 each Documented by: Naloxone HCl (Naloxone 0.4 Mg/Ml 1 Ml Vial) 0.2 mg IV Q2M PRN PRN Reason: Opioid Reversal Nicotine (Nicotine 21mg/24hr Patch) 1 patch TRANSDERM DAILY [facility] Last Admin: 09/02/20 08:30 Dose: 1 patch Documented by: Thiamine HCl (Thiamine 100 Mg Tab) 100 mg PO DAILY [facility] Last Admin: 09/02/20 08:29 Dose: 100 mg Documented by: Past medical history to include: COPD, depression, osteoarthritis, chronic alcohol dependence, cigarette smoking, hypertension, hyperlipidemia, irregular sleep pattern, [facility] history[facility] [place] Long-standing history of alcohol intake and also smoking cigarettes. Has a walker Physical examination: VITAL SIGNS: 98, 78, 18, 150/60, 94% room air GENERAL: BMI 22.2, decreased muscle mass and subcutaneous fat decreased. Less confused today. Leaning over sitting in a chair EYES: Pupils equal. Conjunctiva normal. NECK: JVD not raised; masses not palpable. HEART: First and second heart sounds are normal; no edema. LUNGS: Respiratory rate increased; decreased breath sound some basal crackles. ABDOMEN: Soft, nontender, liver spleen not palpable, no masses palpable. PSYCH: Answering questions better MUSCULAR skeletal: Decreased muscle mass NEUROLOGICAL: Cranial nerves grossly intact; no facial asymmetry, decreased generalize power. Left arm claw-hand INVESTIGATIONS, reviewed in the clinical context: EEG: Evidence of encephalopathy. No epilepsy WBC 10.1 hemoglobin 13.6 platelets 365 potassium 4.2 creatinine 0.97 Blood glucose 147. Serum alcohol less than 10 Coronavirus [PCF]: Not detected Chest x-ray film personally reviewed by me-hyperinflation. Possible infiltrate CT lumbar spine: Supple. Endplate deformity of T12-L1, scoliosis, neuro following last stenosis, bladder distention Computed tomography scan of the brain: Mild to moderate hydrocephalus, spondylo- lytic changes Assessment and plan: -Fall secondary to multifactorial: acute medical debility on chronic medical debility multifactorial. 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 -Pneumonia, suspect gram-negative organism IV ceftriaxone -Acute delirium and metabolic encephalopathy-slow to respond -Alcoholic and nutritional myopathy PTOT -Acute COPD exacerbation, and a current smoker-slow to respond DuoNeb, inhaled steroids and long-acting beta agonist -Chronic B12 deficiency -Vitamin B12 supplement -Essential hypertension Continue with Zestril -Chronic nicotine dependence Nicotine patch -Assess for cognitive impairment when patient is most stable. Differential includes alcohol-induced dementia, normal pressure hydrocephalus, B12 deficiency, -Possible normal pressure hydrocephalus. Discussed with patient in the presence with neurologist Dr. Velazquez. Patient present time does not want any further intervention Continue PTOT. IV ceftriaxone. Other medications to continue. Patient will most likely need inpatient rehab. Discussed with Dr. Daniels from neurology
[2020-09-02] MEDS ORDERED: polyethylene glycoL 3350 17 GM POWD.PACK PO SCH (21:00)
[2020-09-02] MEDS: FENOFIBRATE 160 MG TAB PO SCH (21:47)
[2020-09-03] MEDS: CITALOPRAM HYDROBROMIDE 10 MG TAB PO SCH (08:01)
[2020-09-03] MEDS: MULTIVITAMINS, THERA 1 EACH TAB PO SCH (08:01)
[2020-09-03] MEDS: ENOXAPARIN 40 MG/0.4 ML SYRINGE SQ SCH (08:01)
[2020-09-03] MEDS: CYANOCOBALAMIN 500 MCG TAB PO SCH (08:01)
[2020-09-03] MEDS: guaiFENesin 600 MG TABLET.ER PO SCH ×4 (08:01→21:51)
[2020-09-03] MEDS: THIAMINE 100 MG TAB PO SCH (08:02)
[2020-09-03] MEDS: NICOTINE 21MG/24HR PATCH TRANSDERM SCH (08:02)
[2020-09-03] MEDS: FOLIC ACID 1 MG TAB PO SCH (08:02)
[2020-09-03] MEDS: ASPIRIN 81 MG PO SCH (08:02)
[2020-09-03] MEDS: CHOLECALCIFEROL 25 MCG (1000 IU) TABLET PO SCH (08:02)
[2020-09-03] MEDS: lisinopriL 10 MG TAB PO SCH (08:02)
[2020-09-03] MEDS: IPRATROPIUM-ALBUTEROL 3 ML NEB INHALATION SCH ×4 (08:35→20:25)
[2020-09-03] MEDS: FORMOTEROL FUMARATE 20 MCG/2 ML NEBU INHALATION SCH ×2 (08:35→20:25)
[2020-09-03] MEDS: BUDESONIDE 1 MG/2 ML NEBU INHALATION SCH ×2 (08:35→20:25)
--- NOTE | 2020-09-03 11:08 | P.PN ---
Subjective Progress Note Date: 09/03/20 Principal diagnosis: Right basal pneumonia COPD with exacerbation Recurrent falls Advanced dementia and Alzheimer's disease Hypertension hypertensive cardiovascular disease Dyslipidemia Chronic long-standing use of alcohol and smoking 09/03/2020, patient currently undergoing physical therapy, on room air, mildly short of breath, denies any chest pain, patient remains on broad-spectrum antibiotics, as well as fall precautions Patient is a pleasant 85-year-old male, admitted into the hospital for falls and generalized weakness patient has ongoing chronic history of shortness of breath or better and cough, overall poor historian not much data can be obtained from him, patient has a long-standing history of smoking and ethanol use, chest x-ray performed revealed infiltrate and hyperinflation also rib fracture on the right side likely old and chronic Objective - Vital Signs Vital signs: Vital Signs Temp 98.3 F 09/03/20 07:46 Pulse 84 09/03/20 08:53 Resp 18 09/03/20 07:46 BP 157/72 09/03/20 07:46 Pulse Ox 96 09/03/20 07:46 Intake & Output 09/02/20 09/03/20 09/03/20 18:59 06:59 18:59 Intake Total 210 50 Output Total 1100 Balance 210 -1100 50 Weight 68.039 kg Intake: Intake, IV Titration 210 50 Amount Sodium Chloride 0.9% 1, 160 000 ml @ 20 mls/hr IV . Q24H [facility] Rx#:[id number] cefTRIAXone 1 gm In 50 50 Sodium Chloride 0.9% 50 ml @ 100 mls/hr IVPB Q12H [facility] Rx#:[id number] Output: Urine 1100 Other: Voiding Method Indwelling Catheter Indwelling Catheter Indwelling Catheter # Bowel Movements 1 - Exam Constitutional General appearance: average body habitus, disheveled - EENT Eyes: EOMI, PERRLA ENT: normal oropharynx Ears: bilateral: normal - Neck Carotids: bilateral: upstroke normal - Respiratory Respiratory: bilateral: diminished - Cardiovascular Rhythm: regular Heart sounds: normal: S1, S2 - Gastrointestinal General gastrointestinal: normal bowel sounds - Integumentary Integumentary: normal, normal turgor - Musculoskeletal Musculoskeletal: generalized weakness, strength equal bilaterally - Psychiatric Psychiatric: A&O x's 3, appropriate affect, intact judgment & insight - Labs CBC & Chem 7: 09/01/20 09:27 09/01/20 09:27 Labs: Abnormal Lab Results - Last 24 Hours (Table) 09/03/20 Range/Units 05:49 Prealbumin 14.0 L (18.0-42.0) mg/dL Assessment and Plan Assessment: Altered mental status/encephalopathy Right basal pneumonia COPD with exacerbation Recurrent falls Advanced dementia and Alzheimer's disease Hypertension hypertensive cardiovascular disease Dyslipidemia Chronic long-standing use of alcohol and smoking Plan: Broad-spectrum antibiotics Bronchodilators Observe off of steroids for now Agree with rehab evaluation and physical therapy likely will require ECF placement Further plan of care as per clinical response of the patient Time with Patient: Greater than 30
[2020-09-03] MEDS: SODIUM CHLORIDE 0.9% 1,000 ML IV SCH (11:40)
--- NOTE | 2020-09-03 13:32 | P.PN ---
Subjective Progress Note Date: 09/03/20 Patient seen at bedside and he feels is back to baseline. Denies any further confusion. Denies of any focal weakness, numbness, visual disturbance are new. Denies slurring of speech. Routine EEG on 09/02/2020 and the EEG is abnormal routine EEG. The mild slowing suggestive of mild encephalopathy. There are no focal slowing, epileptiform discharges or seizure on EEG Objective - Vital Signs Vital signs: Vital Signs Temp 98.3 F 09/03/20 07:46 Pulse 84 09/03/20 08:53 Resp 18 09/03/20 07:46 BP 157/72 09/03/20 07:46 Pulse Ox 96 09/03/20 07:46 Intake & Output 09/02/20 09/03/20 09/03/20 18:59 06:59 18:59 Intake Total 210 50 Output Total 1100 Balance 210 -1100 50 Weight 68.039 kg Intake: Intake, IV Titration 210 50 Amount Sodium Chloride 0.9% 1, 160 000 ml @ 20 mls/hr IV . Q24H [facility] Rx#:[id number] cefTRIAXone 1 gm In 50 50 Sodium Chloride 0.9% 50 ml @ 100 mls/hr IVPB Q12H [facility] Rx#:[id number] Output: Urine 1100 Other: Voiding Method Indwelling Catheter Indwelling Catheter Indwelling Catheter # Bowel Movements 1 - Exam GENERAL: The patient is lying in bed and is not in acute distress. NEUROLOGICAL: Higher mental function: The patient is awake, alert, oriented to self, place. He stated the month is August but the year is 2019. He is able to identify objects such as pen, watch and glasses. . Patient is following commands. No aphasia and no neglect. Cranial nerves: The pupils are round, equal and reactive to light and accommodation. Visual guerin are full to confrontation throughout. Extraocular movement is intact no nystagmus is noted. Facial sensation is normal to touch throughout. The facial strength is normal throughout. Hearing is moderately decreased bilaterally to hand rub. Tongue is midline and moved [id number] without any difficulty. No dysarthria is noted. Shoulder shrug is normal bilaterally. Motor: Gait is deferred since he is getting a test. The strength is spastic over the left forearm/hand with atrophy (old per daughter from old injury to left upper extremity and not stroke). Otherwise 5 over 5 throughout. Normal tone and bulk. Cerebellum: Normal finger to nose bilaterally. Sensation: Sensation is normal to touch throughout. Reflexes (right/left):3++ throughout upper but could not assess lower because of his cooperation. Plantars are downgoing bilaterally. - Labs CBC & Chem 7: 09/01/20 09:27 09/01/20 09:27 Labs: Abnormal Lab Results - Last 24 Hours (Table) 09/03/20 Range/Units 05:49 Prealbumin 14.0 L (18.0-42.0) mg/dL Assessment and Plan Assessment: * Altered mental status. Possibly due to septic encpehalpathy (from underlying suspected pneumonia)--mentation improved * Recurrent falls. Seems multifactorial: Due to component of Normal pressure h ydrocephalus, chronic Alcohol use, compoenent cervical and lumbosacral spondylosis. * Seems to have possible Normal pressure hydrocephalus (has 3 year history of falls, in last couple month has urinary incontinence and in last one month some memory loss). * Old left upper extremity spasticity and atrophy. He had a old fall leading to spasticity and atrophy (per daughter he had a fall and injured left upper extremity and was on floor for days. 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 Moderate to advanced spondylitic changes with degenerative grade 1 spondylolysis C3 to C4 and C5 to C6) * Lumbosacral spondylosis (moderate to severe on the right at the L4-L5 and L5- S1) * Suspected hydroneprhrosis * Hypertension * Hyperlipidemia * Chronic Alcohol use (per daughter she stated he has not been drinking to her knowledge in past 2 years) * Chronic nicotine dependence Plan: * Routine EEG on 09/02/2020 and the EEG is abnormal routine EEG. The mild slowing suggestive of mild encephalopathy. There are no focal slowing, epileptiform discharges or seizure on EEG * TSH is 1.850 which is normal. It is likely the patient has vitamin B12 deficiency and is on vitamin B 12 1000 g daily and the patient is also on folic acid 0.5 mg daily. Not sure when the patient was given that diagnosis and what was his lab values. * Patient is on thiamine 100 mg daily and this should be continued. * PT and OT are consulted. * Regarding the possible normal pressure hydrocephalus: The patient and his daughter do no want to pursue with any surgical intervention. * Regarding the cervical and lumbar spondylosis, also patient and his daughter do not want to pursue with any surgical intervention. * Patient was counseled on continous alcohol cessation. * The patient was given Ativan 0.5 mg as well as morphine 2 mg once. Please avoids any sedations/narcotic/opiate that would affect the patient's neurologist on examination as well as it increases the risk of falls. * We'll defer the rest of the medical measure to the primary team. * Upon discharge the patient needs to follow-up with a neurologist as outpatient within 1-2 weeks. The plan is discussed with the patient's daughter ([place] via phone) and the primary team. He is clear from neurological stand point. Neurology will sign off. Please reconsult if needed. Israel Velazquez M.D. Neuro-hospitalist Time with Patient: Less than 30
--- NOTE | 2020-09-03 16:38 | P.PN ---
Progress Note - Text Progress Note Date: 09/03/20 Chief Complaint: Found on the bathroom floor History of presenting complaint: This is a 85-year-old patient who follows with Dr. Roberts. Patient has a history of frequent falls. Patient lives in an assisted living where he is normally helped with his medications. The ventilator given his medications this morning and he was found on the bathroom floor. They believe he was there from 8 PM the previous night. He reported that he had fallen because brakes went out of his cart. Denied reporting hitting his head. Patient normally AO 3 but was found to be slightly confused. Was unable to get up. EMS had to help him out. Patient has chronic low back pain. Has a rather congested cough. Shortness of breath. Some wheezing. Patient is not a good historian. Patient has a long- standing history of drinking alcohol or smoking. Has had prior admissions with fall. Admitted with acute delirium, metabolic encephalopathy, pneumonia, acute COPD exacerbation. Started on bronchodilators, IV ceftriaxone. 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 Also found to underlying dementia. Today: Laying in bed. Less short of breath. Answered questions better today. Forgetful at times. Oral intake variable Review of systems: Was done for constitutional, cardiovascular, GI, pulmonary. relevant finding as above Active Medications Acetaminophen (Acetaminophen Tab 500 Mg Tab) 1,000 mg PO Q8H PRN PRN Reason: Pain Albuterol/Ipratropium (Ipratropium-Albuterol 3 Ml Neb) 3 ml INHALATION RT-QID [facility] Last Admin: 09/03/20 12:15 Dose: Not Given Documented by: Aspirin (Aspirin 81 Mg) 81 mg PO DAILY [facility] Last Admin: 09/03/20 08:02 Dose: 81 mg Documented by: Budesonide (Budesonide 1 Mg/2 Ml Nebu) 1 mg INHALATION RT-BID [facility] Last Admin: 09/03/20 08:35 Dose: 1 mg Documented by: Cholecalciferol (Cholecalciferol 25 Mcg (1000 Iu) Tablet) 25 mcg PO DAILY [facility] Last Admin: 09/03/20 08:02 Dose: 25 mcg Documented by: Citalopram Hydrobromide (Citalopram Hydrobromide 10 Mg Tab) 30 mg PO DAILY [facility] [place] Last Admin: 09/03/20 08:01 Dose: 30 mg Documented by: Cyanocobalamin (Cyanocobalamin 500 Mcg Tab) 1,000 mcg PO DAILY [facility] Last Admin: 09/03/20 08:01 Dose: 1,000 mcg Documented by: Enoxaparin Sodium (Enoxaparin 40 Mg/0.4 Ml Syringe) 40 mg SQ DAILY [facility] Last Admin: 09/03/20 08:01 Dose: 40 mg Documented by: Fenofibrate (Fenofibrate 160 Mg Tab) 160 mg PO HS [facility] Last Admin: 09/02/20 21:47 Dose: 160 mg Documented by: Folic Acid (Folic Acid 1 Mg Tab) 0.5 mg PO DAILY [facility] Last Admin: 09/03/20 08:02 Dose: 0.5 mg Documented by: Formoterol Fumarate (Formoterol Fumarate 20 Mcg/2 Ml Nebu) 20 mcg INHALATION RT-BID [facility] Last Admin: 09/03/20 08:35 Dose: 20 mcg Documented by: Guaifenesin (Guaifenesin 600 Mg Tablet.Er) 600 mg PO QID [facility] Last Admin: 09/03/20 11:40 Dose: 600 mg Documented by: Sodium Chloride (Saline 0.9%) 1,000 mls @ 20 mls/hr IV .Q24H [facility] Last Admin: 09/03/20 11:40 Dose: 20 mls/hr Documented by: Ceftriaxone Sodium 1 gm/ (Sodium Chloride) 50 mls @ 100 mls/hr IVPB Q12H [facility] Last Admin: 09/03/20 11:39 Dose: 100 mls/hr Documented by: Ibuprofen (Ibuprofen 800 Mg Tab) 800 mg PO DAILY PRN PRN Reason: Pain Lisinopril (Lisinopril 10 Mg Tab) 10 mg PO DAILY [facility] Last Admin: 09/03/20 08:02 Dose: 10 mg Documented by: Multivitamins (Multivitamins, Thera 1 Each Tab) 1 each PO DAILY [facility] Last Admin: 09/03/20 08:01 Dose: 1 each Documented by: Naloxone HCl (Naloxone 0.4 Mg/Ml 1 Ml Vial) 0.2 mg IV Q2M PRN PRN Reason: Opioid Reversal Nicotine (Nicotine 21mg/24hr Patch) 1 patch TRANSDERM DAILY [facility] Last Admin: 09/03/20 08:02 Dose: 1 patch Documented by: Thiamine HCl (Thiamine 100 Mg Tab) 100 mg PO DAILY [facility] Last Admin: 09/03/20 08:02 Dose: 100 mg Documented by: Past medical history to include: COPD, depression, osteoarthritis, chronic alcohol dependence, cigarette smoking, hypertension, hyperlipidemia, irregular sleep pattern, Social history: Lives [facility] [place]. Long-standing history of alcohol intake and also smoking cigarettes. Has a walker Physical examination: VITAL SIGNS: 98, 92, 18, 148/81, 95% room air GENERAL: BMI 22.2, decreased muscle mass and subcutaneous fat decreased. Communicating better today EYES: Pupils equal. Conjunctiva normal. NECK: JVD not raised; masses not palpable. HEART: First and second heart sounds are normal; no edema. LUNGS: Respiratory rate increased; decreased breath sound some basal crackles. ABDOMEN: Soft, nontender, liver spleen not palpable, no masses palpable. PSYCH: Answering questions better MUSCULAR skeletal: Decreased muscle mass NEUROLOGICAL: Cranial nerves grossly intact; no facial asymmetry, decreased generalize power. Left arm claw-hand INVESTIGATIONS, reviewed in the clinical context: EEG: Evidence of encephalopathy. No epilepsy WBC 10.1 hemoglobin 13.6 platelets 365 potassium 4.2 creatinine 0.97 Blood glucose 147. Serum alcohol less than 10 Coronavirus [PCF]: Not detected Chest x-ray film personally reviewed by me-hyperinflation. Possible infiltrate CT lumbar spine: Supple. Endplate deformity of T12-L1, scoliosis, neuro following last stenosis, bladder distention Computed tomography scan of the brain: Mild to moderate hydrocephalus, spondylo- lytic changes Assessment and plan: -Fall secondary to multifactorial: acute medical debility on chronic medical debility multifactorial. 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 Fall precautions. -Pneumonia, suspect gram-negative organism-improving IV ceftriaxone -Acute delirium and metabolic encephalopathy- improving -Alcoholic and nutritional myopathy PTOT -Acute COPD exacerbation, and a current smoker improving DuoNeb, inhaled steroids and long-acting beta agonist -Chronic B12 deficiency -Vitamin B12 supplement -Essential hypertension Continue with Zestril -Chronic nicotine dependence Nicotine patch -Assess for cognitive impairment when patient is most stable. Differential includes alcohol-induced dementia, normal pressure hydrocephalus, B12 deficiency, -Possible normal pressure hydrocephalus. Discussed with patient in the presence with neurologist Dr. Velazquez. Patient present time does not want any further intervention Dr. rasmussen higher function cognitive assessment including Montral testing by speech. Other medications to continue. Switch to oral antibiotics in the morning. Hopefully discharged to [facility] tomorrow.
[2020-09-03] MEDS ORDERED: BACITRACIN OINT 1 EACH PACKET TOPICAL PRN (19:57)
[2020-09-03] MEDS: FENOFIBRATE 160 MG TAB PO SCH (21:51)
[2020-09-04 06:38] LABS: Basophils % (A) 0 %; Eosinophils # (A) 0.2 k/uL (0-0.7); Eosinophils % (A) 2 %; HCT 36.7 % (39.0-53.0); HGB 12.4 gm/dL (13.0-17.5); Lymphocytes # (A) 1.2 k/uL (1.0-4.8); Lymphocytes % (A) 14 %; MCH 29.7 pg (25.0-35.0); MCHC 33.7 g/dL (31.0-37.0); Monocytes # (A) 0.6 k/uL (0-1.0); Monocytes % (A) 7 %; Neutrophils # (A) 6.5 k/uL (1.3-7.7); Neutrophils % (A) 75 %; Platelet Count 302 k/uL (150-450); RBC 4.17 m/uL (4.30-5.90); RDW 14.3 % (11.5-15.5); WBC 8.6 k/uL (3.8-10.6)
[2020-09-04] MEDS: IPRATROPIUM-ALBUTEROL 3 ML NEB INHALATION SCH ×4 (07:12→19:05)
[2020-09-04] MEDS: FORMOTEROL FUMARATE 20 MCG/2 ML NEBU INHALATION SCH ×2 (07:12→19:22)
[2020-09-04] MEDS: BUDESONIDE 1 MG/2 ML NEBU INHALATION SCH ×2 (07:13→19:05)
[2020-09-04] MEDS: ASPIRIN 81 MG PO SCH (09:48)
[2020-09-04] MEDS: MULTIVITAMINS, THERA 1 EACH TAB PO SCH (09:48)
[2020-09-04] MEDS: CITALOPRAM HYDROBROMIDE 10 MG TAB PO SCH ×2 (09:49→11:11)
[2020-09-04] MEDS: CHOLECALCIFEROL 25 MCG (1000 IU) TABLET PO SCH (09:49)
[2020-09-04] MEDS: CYANOCOBALAMIN 500 MCG TAB PO SCH (09:49)
[2020-09-04] MEDS: THIAMINE 100 MG TAB PO SCH (09:50)
[2020-09-04] MEDS: lisinopriL 10 MG TAB PO SCH (09:50)
[2020-09-04] MEDS: guaiFENesin 600 MG TABLET.ER PO SCH ×4 (09:50→22:57)
[2020-09-04] MEDS: FOLIC ACID 1 MG TAB PO SCH (09:50)
[2020-09-04] MEDS: ENOXAPARIN 40 MG/0.4 ML SYRINGE SQ SCH (09:51)
[2020-09-04] MEDS: NICOTINE 21MG/24HR PATCH TRANSDERM SCH (11:11)
--- NOTE | 2020-09-04 11:28 | P.PN ---
Subjective Progress Note Date: 09/04/20 Principal diagnosis: Right basal pneumonia COPD with exacerbation Recurrent falls Advanced dementia and Alzheimer's disease Hypertension hypertensive cardiovascular disease Dyslipidemia Chronic long-standing use of alcohol and smoking 09/04/2020, patient seen eval examined during the rounds labs reviewed medications reviewed care plan discussed, patient continued to get physical therapy, respiratory status stable, oxygen saturation 94% on room air, patient is being eval by physical therapy for placement, gait remains an issue due to multiple factors including chronic alcoholism and possible myopathy as well as normal pressure hydrocephalus 09/03/2020, patient currently undergoing physical therapy, on room air, mildly short of breath, denies any chest pain, patient remains on broad-spectrum antibiotics, as well as fall precautions Patient is a pleasant 85-year-old male, admitted into the hospital for falls and generalized weakness patient has ongoing chronic history of shortness of breath or better and cough, overall poor historian not much data can be obtained from him, patient has a long-standing history of smoking and ethanol use, chest x-ray performed revealed infiltrate and hyperinflation also rib fracture on the right side likely old and chronic Objective - Vital Signs Vital signs: Vital Signs Temp 97.6 F 09/04/20 07:42 Pulse 78 09/04/20 07:42 Resp 17 09/04/20 07:42 BP 153/84 09/04/20 07:42 Pulse Ox 94 L 09/04/20 07:42 Intake & Output 09/03/20 09/04/20 09/04/20 18:59 06:59 18:59 Intake Total 50 Output Total 1000 Balance 50 -1000 Intake: Intake, IV Titration 50 Amount cefTRIAXone 1 gm In 50 Sodium Chloride 0.9% 50 ml @ 100 mls/hr IVPB Q12H ON LICENSE OF [facility] Rx#:[id number] Output: Urine 1000 Other: Voiding Method Indwelling Catheter Indwelling Catheter Indwelling Catheter - Exam Constitutional General appearance: average body habitus, disheveled - EENT Eyes: EOMI, PERRLA ENT: normal oropharynx Ears: bilateral: normal - Neck Carotids: bilateral: upstroke normal - Respiratory Respiratory: bilateral: diminished - Cardiovascular Rhythm: regular Heart sounds: normal: S1, S2 - Gastrointestinal General gastrointestinal: normal bowel sounds - Integumentary Integumentary: normal, normal turgor - Musculoskeletal Musculoskeletal: generalized weakness, strength equal bilaterally - Psychiatric Psychiatric: A&O x's 3, appropriate affect, intact judgment & insight - Labs CBC & Chem 7: 09/04/20 06:02 09/01/20 09:27 Labs: Abnormal Lab Results - Last 24 Hours (Table) 09/04/20 Range/Units 06:02 RBC 4.17 L (4.30-5.90) m/uL Hgb 12.4 L (13.0-17.5) gm/dL Hct 36.7 L (39.0-53.0) % Assessment and Plan Assessment: Altered mental status/encephalopathy Right basal pneumonia COPD with exacerbation Generalized weakness and gait dysfunction due to multiple factors 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
[2020-09-04] MEDS: SODIUM CHLORIDE 0.9% 1,000 ML IV SCH (15:46)
--- NOTE | 2020-09-04 20:32 | P.PN ---
Progress Note - Text Progress Note Date: 09/04/20 Chief Complaint: Found on the bathroom floor History of presenting complaint: This is a 85-year-old patient who follows with Dr. Roberts. Patient has a history of frequent falls. Patient lives in an assisted living where he is normally helped with his medications. The ventilator given his medications this morning and he was found on the bathroom floor. They believe he was there from 8 PM the previous night. He reported that he had fallen because brakes went out of his cart. Denied reporting hitting his head. Patient normally AO 3 but was found to be slightly confused. Was unable to get up. EMS had to help him out. Patient has chronic low back pain. Has a rather congested cough. Shortness of breath. Some wheezing. Patient is not a good historian. Patient has a long- standing history of drinking alcohol or smoking. Has had prior admissions with fall. Admitted with acute delirium, metabolic encephalopathy, pneumonia, acute COPD exacerbation. Started on bronchodilators, IV ceftriaxone. 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 Also found to underlying dementia. Today: Doing better. Communicating better. Did not eat any breakfast. 8 about 50% of lunch. This confused. Did walk in the hallway with a walker. Review of systems: Was done for constitutional, cardiovascular, GI, pulmonary. relevant finding as above Active Medications Acetaminophen (Acetaminophen Tab 500 Mg Tab) 1,000 mg PO Q8H PRN PRN Reason: Pain Albuterol/Ipratropium (Ipratropium-Albuterol 3 Ml Neb) 3 ml INHALATION RT-QID [facility] Last Admin: 09/04/20 19:05 Dose: 3 ml Documented by: Aspirin (Aspirin 81 Mg) 81 mg PO DAILY [facility] Last Admin: 09/04/20 09:48 Dose: 81 mg Documented by: Bacitracin (Bacitracin Oint 1 Each Packet) 1 each TOPICAL QID PRN PRN Reason: abraision Last Admin: 09/03/20 21:56 Dose: 1 each Documented by: Budesonide (Budesonide 1 Mg/2 Ml Nebu) 1 mg INHALATION RT-BID [facility] Last Admin: 09/04/20 19:05 Dose: 1 mg Documented by: Cholecalciferol (Cholecalciferol 25 Mcg (1000 Iu) Tablet) 25 mcg PO DAILY [facility] Last Admin: 09/04/20 09:49 Dose: 25 mcg Documented by: Citalopram Hydrobromide (Citalopram Hydrobromide 10 Mg Tab) 30 mg PO DAILY [facility] Last Admin: 09/04/20 11:11 Dose: 30 mg Documented by: Cyanocobalamin (Cyanocobalamin 500 Mcg Tab) 1,000 mcg PO DAILY [facility] Last Admin: 09/04/20 09:49 Dose: 1,000 mcg Documented by: Enoxaparin Sodium (Enoxaparin 40 Mg/0.4 Ml Syringe) 40 mg SQ DAILY [facility] Last Admin: 09/04/20 09:51 Dose: 40 mg Documented by: Fenofibrate (Fenofibrate 160 Mg Tab) 160 mg PO HS [facility] Last Admin: 09/03/20 21:51 Dose: 160 mg Documented by: Folic Acid (Folic Acid 1 Mg Tab) 0.5 mg PO DAILY [facility] Last Admin: 09/04/20 09:50 Dose: 0.5 mg Documented by: Formoterol Fumarate (Formoterol Fumarate 20 Mcg/2 Ml Nebu) 20 mcg INHALATION RT-BID [facility] Last Admin: 09/04/20 19:22 Dose: 20 mcg Documented by: Guaifenesin (Guaifenesin 600 Mg Tablet.Er) 600 mg PO QID [facility] Last Admin: 09/04/20 19:05 Dose: 600 mg Documented by: Sodium Chloride (Saline 0.9%) 1,000 mls @ 20 mls/hr IV .Q24H [facility] Last Admin: 09/04/20 15:46 Dose: 20 mls/hr Documented by: Ceftriaxone Sodium 1 gm/ (Sodium Chloride) 50 mls @ 100 mls/hr IVPB Q12H [facility] Last Admin: 09/04/20 13:13 Dose: 100 mls/hr Documented by: Ibuprofen (Ibuprofen 800 Mg Tab) 800 mg PO DAILY PRN PRN Reason: Pain Lisinopril (Lisinopril 10 Mg Tab) 10 mg PO DAILY [facility] Last Admin: 09/04/20 09:50 Dose: 10 mg Documented by: Multivitamins (Multivitamins, Thera 1 Each Tab) 1 each PO DAILY [facility] Last Admin: 09/04/20 09:48 Dose: 1 each Documented by: Naloxone HCl (Naloxone 0.4 Mg/Ml 1 Ml Vial) 0.2 mg IV Q2M PRN PRN Reason: Opioid Reversal Nicotine (Nicotine 21mg/24hr Patch) 1 patch TRANSDERM DAILY [facility] Last Admin: 09/04/20 11:11 Dose: Not Given Documented by: Thiamine HCl (Thiamine 100 Mg Tab) 100 mg PO DAILY [facility] Last Admin: 09/04/20 09:50 Dose: 100 mg Documented by: Past medical history to include: COPD, depression, osteoarthritis, chronic alcohol dependence, cigarette smoking, hypertension, hyperlipidemia, irregular sleep pattern, Social history: Lives at [facility]. Long-standing history of alcohol intake and also smoking cigarettes. Has a walker Physical examination: VITAL SIGNS: 97.5, 86, 18, 161/77, 94% room air GENERAL: BMI 22.2, decreased muscle mass and subcutaneous fat decreased. Communicating better EYES: Pupils equal. Conjunctiva normal. NECK: JVD not raised; masses not palpable. HEART: First and second heart sounds are normal; no edema. LUNGS: Respiratory rate increased; decreased breath sound some basal crackles. ABDOMEN: Soft, nontender, liver spleen not palpable, no masses palpable. PSYCH: Answering questions MUSCULAR skeletal: Decreased muscle mass NEUROLOGICAL: Cranial nerves grossly intact; no facial asymmetry, decreased generalize power. Left arm claw-hand . Using a walker to ambulate INVESTIGATIONS, reviewed in the clinical context: September 04: WBC 8.6 hemoglobin 12.4. Prealbumin 14 pro-calcitonin 0.04 EEG: Evidence of encephalopathy. No epilepsy WBC 10.1 hemoglobin 13.6 platelets 365 potassium 4.2 creatinine 0.97 Blood glucose 147. Serum alcohol less than 10 Coronavirus [PCF]: Not detected Chest x-ray film personally reviewed by me-hyperinflation. Possible infiltrate CT lumbar spine: Supple. Endplate deformity of T12-L1, scoliosis, neuro following last stenosis, bladder distention Computed tomography scan of the brain: Mild to moderate hydrocephalus, spondylo- lytic changes Assessment and plan: -Fall secondary to multifactorial: acute medical debility on chronic medical debility multifactorial. 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 Fall precautions. 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 This can be followed worked up as an outpatient -Possible normal pressure hydrocephalus. Discussed with patient in the presence with neurologist Dr. Velazquez. Patient present time does not want any further intervention Patient will not qualify for inpatient rehab. Has shown improvement since she's been him. We'll watch for another 24 hours. Also spoke to patient's daughter Heaven Izaguirre had a lengthy discussion about overall physical and mental state. Did explain the results of the Montral cognitive assessment and plan the clinical implication of the same. And that patient be requiring close monitoring. Total time spent today about 45 minutes with over 25 minutes of discussion
[2020-09-04] MEDS: FENOFIBRATE 160 MG TAB PO SCH (22:57)
[2020-09-05] MEDS: FOLIC ACID 1 MG TAB PO SCH (08:46)
[2020-09-05] MEDS: NICOTINE 21MG/24HR PATCH TRANSDERM SCH (08:46)
[2020-09-05] MEDS: IPRATROPIUM-ALBUTEROL 3 ML NEB INHALATION SCH ×3 (08:46→15:23)
[2020-09-05] MEDS: ENOXAPARIN 40 MG/0.4 ML SYRINGE SQ SCH (08:46)
[2020-09-05] MEDS: CHOLECALCIFEROL 25 MCG (1000 IU) TABLET PO SCH (08:46)
[2020-09-05] MEDS: MULTIVITAMINS, THERA 1 EACH TAB PO SCH (08:46)
[2020-09-05] MEDS: THIAMINE 100 MG TAB PO SCH (08:46)
[2020-09-05] MEDS: BUDESONIDE 1 MG/2 ML NEBU INHALATION SCH (08:46)
[2020-09-05] MEDS: lisinopriL 10 MG TAB PO SCH (08:46)
[2020-09-05] MEDS: CYANOCOBALAMIN 500 MCG TAB PO SCH (08:46)
[2020-09-05] MEDS: FORMOTEROL FUMARATE 20 MCG/2 ML NEBU INHALATION SCH (08:46)
[2020-09-05] MEDS: ASPIRIN 81 MG PO SCH (08:47)
[2020-09-05] MEDS: CITALOPRAM HYDROBROMIDE 10 MG TAB PO SCH (08:47)
[2020-09-05] MEDS: guaiFENesin 600 MG TABLET.ER PO SCH ×2 (08:47→12:04)
--- NOTE | 2020-09-05 11:12 | P.PN ---
Subjective Progress Note Date: 09/05/20 Principal diagnosis: Right basal pneumonia COPD with exacerbation Recurrent falls Advanced dementia and Alzheimer's disease Hypertension hypertensive cardiovascular disease Dyslipidemia Chronic long-standing use of alcohol and smoking 09/05/2020, patient seen eval examined her respiratory status remains stable mostly on room air, patient actively participating in therapy, continued to have generalized weakness, patient remains on antibiotics for pneumonia remains afebrile, intermittent cough is present, 09/04/2020, patient seen eval examined during the rounds labs reviewed medications reviewed care plan discussed, patient continued to get physical therapy, respiratory status stable, oxygen saturation 94% on room air, patient is being eval by physical therapy for placement, gait remains an issue due to multiple factors including chronic alcoholism and possible myopathy as well as normal pressure hydrocephalus 09/03/2020, patient currently undergoing physical therapy, on room air, mildly short of breath, denies any chest pain, patient remains on broad-spectrum antibiotics, as well as fall precautions Patient is a pleasant 85-year-old male, admitted into the hospital for falls and generalized weakness patient has ongoing chronic history of shortness of breath or better and cough, overall poor historian not much data can be obtained from him, patient has a long-standing history of smoking and ethanol use, chest x-ray performed revealed infiltrate and hyperinflation also rib fracture on the right side likely old and chronic Objective - Vital Signs Vital signs: Vital Signs Temp 97.5 F L 09/05/20 07:54 Pulse 90 09/05/20 09:05 Resp 17 09/05/20 07:54 BP 168/87 09/05/20 07:54 Pulse Ox 90 L 09/05/20 07:54 Intake & Output 09/04/20 09/05/20 09/05/20 18:59 06:59 18:59 Output Total 675 1001 Balance -675 -1001 Weight 68.039 kg Output: Urine 675 1000 Stool 1 Other: Voiding Method Indwelling Catheter Indwelling Catheter - Exam Constitutional General appearance: average body habitus, disheveled - EENT Eyes: EOMI, PERRLA ENT: normal oropharynx Ears: bilateral: normal - Neck Carotids: bilateral: upstroke normal - Respiratory Respiratory: bilateral: diminished - Cardiovascular Rhythm: regular Heart sounds: normal: S1, S2 - Gastrointestinal General gastrointestinal: normal bowel sounds - Integumentary Integumentary: normal, normal turgor - Musculoskeletal Musculoskeletal: generalized weakness, strength equal bilaterally - Psychiatric Psychiatric: A&O x's 3, appropriate affect, intact judgment & insight - Labs CBC & Chem 7: 09/04/20 06:02 09/01/20 09:27 Assessment and Plan Assessment: Altered mental status/encephalopathy Right basal pneumonia COPD with exacerbation Generalized weakness and gait dysfunction due to multiple factors 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
[2020-09-05] MEDS: SODIUM CHLORIDE 0.9% 1,000 ML IV SCH (12:05)
[2020-09-05 15:32] VITALS: BP 123/75; RESP 18; TEMP 97.3
[2020-09-05 15:34] VITALS: PULSE 88
--- NOTE | 2020-09-05 16:04 | P.DS ---
Providers Date of admission: 09/01/20 11:58 Expected date of discharge: 09/05/20 Attending physician: John Jaquez Consults: 09/01/20 17:36 Consult Physician Routine Consulting Provider: Ruel Nelson Consult Reason/Comments: COPD Do you want consulting provider notified?: Yes 09/01/20 18:36 Consult Physician Routine Consulting Provider: Israel Velazquez Consult Reason/Comments: Altered sensorium Do you want consulting provider notified?: Yes Primary care physician: Contreras [facility] Course: Chief Complaint: Found on the bathroom floor History of presenting complaint: This is a 85-year-old patient who follows with Dr. Roberts. Patient has a history of frequent falls. Patient lives in an assisted living where he is normally helped with his medications. The ventilator given his medications this morning and he was found on the bathroom floor. They believe he was there from 8 PM the previous night. He reported that he had fallen because brakes went out of his cart. Denied reporting hitting his head. Patient normally AO 3 but was found to be slightly confused. Was unable to get up. EMS had to help him out. Patient has chronic low back pain. Has a rather congested cough. Shortness of breath. Some wheezing. Patient is not a good historian. Patient has a long- standing history of drinking alcohol or smoking. Has had prior admissions with fall. Admitted with acute delirium, metabolic encephalopathy, pneumonia, acute COPD exacerbation. Started on bronchodilators, IV ceftriaxone. 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 had a full Montral cognitive assessment testing in which he obtained a score of 13/30. This can be followed worked up as an outpatient. Care was discussed in detail with patient's daughter. It was explained that patient needs close supervision. She understands the same. Today: Tolerating diet. Laying in bed. Comfortable. Breathing better. We'll be discharging her home with nebulizer. Prescription on for the same. He'll be going back to his assisted living. Patient's completed antibiotics. Discussion and discharge planning more than 35 minutes Consultation: Dr. Nelson from pulmonary Dr. Velazquez from neurology Past medical history to include: COPD, depression, osteoarthritis, chronic alcohol dependence, cigarette smoking, hypertension, hyperlipidemia, irregular sleep pattern, [facility] history[facility] [place] Long-standing history of alcohol intake and also smoking cigarettes. Has a walker Physical examination: VITAL SIGNS: 97.3, 86, 18, 123.75, 94% room air GENERAL: BMI 22.2, decreased muscle mass and subcutaneous fat decreased. Communicating better EYES: Pupils equal. Conjunctiva normal. NECK: JVD not raised; masses not palpable. HEART: First and second heart sounds are normal; no edema. LUNGS: Respiratory rate increased; decreased breath sound some basal crackles. ABDOMEN: Soft, nontender, liver spleen not palpable, no masses palpable. PSYCH: Answering questions MUSCULAR skeletal: Decreased muscle mass NEUROLOGICAL: Cranial nerves grossly intact; no facial asymmetry, decreased generalize power. Left arm claw-hand . Using a walker to ambulate INVESTIGATIONS, reviewed in the clinical context: September 04: WBC 8.6 hemoglobin 12.4. Prealbumin 14 pro-calcitonin 0.04 EEG: Evidence of encephalopathy. No epilepsy WBC 10.1 hemoglobin 13.6 platelets 365 potassium 4.2 creatinine 0.97 Blood glucose 147. Serum alcohol less than 10 Coronavirus [PCF]: Not detected Chest x-ray film personally reviewed by me-hyperinflation. Possible infiltrate CT lumbar spine: Supple. Endplate deformity of T12-L1, scoliosis, neuro following last stenosis, bladder distention Computed tomography scan of the brain: Mild to moderate hydrocephalus, spondylo- lytic changes Assessment and plan: -Fall secondary to multifactorial: acute medical debility on chronic medical debility multifactorial. 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 Fall precautions. -Pneumonia, suspect gram-negative organism-improving IV ceftriaxone-completed course -Acute delirium and metabolic encephalopathy- improving -Alcoholic and nutritional myopathy PTOT -Acute COPD exacerbation, and a current smoker improving DuoNeb, inhaled steroids and long-acting beta agonist. 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 This can be followed worked up as an outpatient -Possible normal pressure hydrocephalus. Discussed with patient in the presence with neurologist Dr. Velazquez. Patient present time does not want any further intervention Disposition: Assisted-living/[facility] Plan - Discharge Summary Discharge Rx Participant: No New Discharge Prescriptions: New Folic Acid 0.5 mg PO DAILY #30 tab Nicotine 21Mg/24Hr Patch [Habitrol] 1 patch TRANSDERM DAILY #14 patch Thiamine [Vitamin B-1] 100 mg PO DAILY #30 tab Ipratropium-Albuterol Nebulize [Duoneb 0.5 mg-3 mg/3 ml Soln] 3 ml INHALATION BID #60 ml Continue lisinopriL [Zestril] 10 mg PO DAILY Citalopram Hydrobromide [CeleXA] 30 mg PO DAILY Multivitamins, Thera [Multivitamin (formulary)] 1 tab PO DAILY Fenofibrate Nanocrystallized [Fenofibrate] 145 mg PO HS Aspirin EC [Ecotrin Low Dose] 81 mg PO DAILY Cyanocobalamin (Vitamin B-12) [Vitamin B-12] 1,000 mcg PO DAILY Cholecalciferol [Vitamin D3 (25 Mcg = 1000 Iu)] 25 mcg PO DAILY Acetaminophen Tab [Tylenol] 500 - 1,000 mg PO Q8H PRN MDD 3gm PRN Reason: Pain Discontinued Ibuprofen [Motrin] 800 mg PO DAILY PRN PRN Reason: Pain Discharge Medication List Citalopram Hydrobromide [CeleXA] 30 mg PO DAILY 04/16/14 [History] lisinopriL [Zestril] 10 mg PO DAILY 04/16/14 [History] Multivitamins, Thera [Multivitamin (formulary)] 1 tab PO DAILY 05/06/18 [History] Aspirin EC [Ecotrin Low Dose] 81 mg PO DAILY 03/18/20 [History] Cyanocobalamin (Vitamin B-12) [Vitamin B-12] 1,000 mcg PO DAILY 03/18/20 [History] Fenofibrate Nanocrystallized [Fenofibrate] 145 mg PO HS 03/18/20 [History] Acetaminophen Tab [Tylenol] 500 - 1,000 mg PO Q8H PRN MDD 3gm 09/01/20 [History] Cholecalciferol [Vitamin D3 (25 Mcg = 1000 Iu)] 25 mcg PO DAILY 09/01/20 [History] Folic Acid 0.5 mg PO DAILY #30 tab 09/05/20 [Rx] Ipratropium-Albuterol Nebulize [Duoneb 0.5 mg-3 mg/3 ml Soln] 3 ml INHALATION BID #60 ml 09/05/20 [Rx] Nicotine 21Mg/24Hr Patch [Habitrol] 1 patch TRANSDERM DAILY #14 patch 09/05/20 [Rx] Thiamine [Vitamin B-1] 100 mg PO DAILY #30 tab 09/05/20 [Rx] Follow up Appointment(s)/Referral(s): Contreras Roberts DO [Primary Care Provider] - 1-2 days [facility], [NON-STAFF] - 1 Week Ruel Nelson MD [STAFF PHYSICIAN] - 1 Week Patient Instructions/Handouts: Fall Prevention for Older Adults (DC), COPD (Chronic Obstructive Pulmonary Disease) (DC)
== END 2020-09-05 16:35 | disposition home health service (06) | DRG 177 ==
LOC: EC 09:05 → 4SSUR 11:58
PROVIDERS: ADMIT Hospitalist; ATTEND Hospitalist
DX: J15.6 Pneumonia due to other Gram-negative bacteria (principal); G93.41 Metabolic encephalopathy; G72.1 Alcoholic myopathy; E44.0 Moderate protein-calorie malnutrition; J44.0 Chronic obstructive pulmonary disease with (acute) lower respiratory infection; J44.1 Chronic obstructive pulmonary disease with (acute) exacerbation; F10.27 Alcohol dependence with alcohol-induced persisting dementia; G91.2 (Idiopathic) normal pressure hydrocephalus; G30.9 Alzheimer's disease, unspecified; F02.80 Dementia in other diseases classified elsewhere, unspecified severity, without behavioral disturbance, psychotic disturbance, mood disturbance, and anxiety; Z20.822 Contact with and (suspected) exposure to COVID-19; R62.7 Adult failure to thrive; I11.9 Hypertensive heart disease without heart failure; E86.0 Dehydration; E78.5 Hyperlipidemia, unspecified; E53.8 Deficiency of other specified B group vitamins; F32.9 Major depressive disorder, single episode, unspecified; R29.6 Repeated falls; G89.29 Other chronic pain; M47.812 Spondylosis without myelopathy or radiculopathy, cervical region; M48.061 Spinal stenosis, lumbar region without neurogenic claudication; M47.817 Spondylosis without myelopathy or radiculopathy, lumbosacral region; M41.9 Scoliosis, unspecified; N32.0 Bladder-neck obstruction; R33.9 Retention of urine, unspecified; M19.90 Unspecified osteoarthritis, unspecified site; R32 Unspecified urinary incontinence; R25.1 Tremor, unspecified; Z68.22 Body mass index [BMI] 22.0-22.9, adult; F17.210 Nicotine dependence, cigarettes, uncomplicated; Z79.82 Long term (current) use of aspirin; Z79.899 Other long term (current) drug therapy; Z86.73 Personal history of transient ischemic attack (TIA), and cerebral infarction without residual deficits; Z91.81 History of falling; Z87.442 Personal history of urinary calculi; Z87.19 Personal history of other diseases of the digestive system; Z96.642 Presence of left artificial hip joint; Z98.890 Other specified postprocedural states; Z71.41 Alcohol abuse counseling and surveillance of alcoholic; W18.30XA Fall on same level, unspecified, initial encounter; Y92.091 Bathroom in other non-institutional residence as the place of occurrence of the external cause; Z91.048 Other nonmedicinal substance allergy status; Z82.49 Family history of ischemic heart disease and other diseases of the circulatory system; Z87.81 Personal history of (healed) traumatic fracture
CPT/HCPCS: 36415; 51798; 70450; 71046; 72100; 72125; 72131; 72170; 80053; 80320; 81001; 82550; 83735; 84134; 84145; 84443; 84484; 85025; 85610; 85730; 87635; 93005; 94640; 94760; 95816; 96361; 96374; 96375; 99285

== ENCOUNTER 2020-09-24 12:12 | Emergency (ER) | payer MEDICARE ==
[2020-09-24 12:22] VITALS: RESP 16
--- NOTE | 2020-09-24 13:08 | XR ---
EXAMINATION TYPE: XR knee complete LT DATE OF EXAM: 09/24/2020 COMPARISON: NONE HISTORY: Pain TECHNIQUE: Three views are submitted. FINDINGS: Diffuse osteopenia with narrowing of the medial compartment of the knee joint and patellofemoral join t. Hypertrophic spurring of the patella noted and there are vascular calcifications. No erosive howard es. No acute fracture. There is a slight deformity of the patella.. Space IMPRESSION: 1. Slight cortical step-off involving the patella on the lateral view near the articular surface jadyn mmend CT scan to exclude fracture..
[2020-09-24 13:33] LABS: Basophils % (A) 1 %; Eosinophils # (A) 0.2 k/uL (0-0.7); Eosinophils % (A) 3 %; HCT 34.7 % (39.0-53.0); HGB 11.9 gm/dL (13.0-17.5); Lymphocytes # (A) 0.8 k/uL (1.0-4.8); Lymphocytes % (A) 14 %; MCH 30.3 pg (25.0-35.0); MCHC 34.4 g/dL (31.0-37.0); MCV 88.1 fL (80.0-100.0); Mean Platelet Volume 7.6; Monocytes # (A) 0.4 k/uL (0-1.0); Monocytes % (A) 7 %; Neutrophils # (A) 4.5 k/uL (1.3-7.7); Neutrophils % (A) 74 %; Platelet Count 346 k/uL (150-450); RBC 3.95 m/uL (4.30-5.90); RDW 13.9 % (11.5-15.5); WBC 6.1 k/uL (3.8-10.6)
--- NOTE | 2020-09-24 13:36 | ED ---
Fall HPI - General Chief Complaint: Fall Stated Complaint: Fall Time Seen by Provider: 09/24/20 12:28 Source: patient, EMS, RN notes reviewed Mode of arrival: EMS - History of Present Illness Initial Comments: 85-year-old male presenting to the emergency room complaining of left knee pain. He notes that he was outside of his assisted living facility walking. He notes that his walker got out ahead of him and he fell on his left knee. He came to the emergency room to get evaluated for some mild knee pain. He denied any tenderness or decreased range of motion or strength in his left lower extremity and knee. He was a well-appearing well-hydrated 85-year-old male in no apparent distress. He denied any chest pain first breath headache nausea vomiting diarrhea constipation fever fatigue chills. - Related Data Home Medications Medication Instructions Recorded Confirmed Citalopram Hydrobromide [CeleXA] 30 mg PO DAILY 04/16/14 09/24/20 lisinopriL [Zestril] 10 mg PO DAILY 04/16/14 09/24/20 Multivitamins, Thera [Multivitamin 1 tab PO DAILY 05/06/18 09/24/20 (formulary)] Aspirin EC [Ecotrin Low Dose] 81 mg PO DAILY 03/18/20 09/24/20 Cyanocobalamin (Vitamin B-12) 1,000 mcg PO DAILY 03/18/20 09/24/20 [Vitamin B-12] Fenofibrate Nanocrystallized 145 mg PO HS 03/18/20 09/24/20 [Fenofibrate] Acetaminophen Tab [Tylenol] 500 - 1,000 mg PO Q8H PRN 09/01/20 09/24/20 Cholecalciferol [Vitamin D3 (25 25 mcg PO DAILY 09/01/20 09/24/20 Mcg = 1000 Iu)] Ibuprofen [Motrin] 800 mg PO DAILY PRN 09/24/20 09/24/20 Ipratropium-Albuterol Nebulize 3 ml INHALATION RT-BID 09/24/20 09/24/20 [Duoneb 0.5 mg-3 mg/3 ml Soln] Previous Rx's Medication Instructions Recorded Folic Acid 0.5 mg PO DAILY #30 tab 09/05/20 Thiamine [Vitamin B-1] 100 mg PO DAILY #30 tab 09/05/20 Allergies Allergy/AdvReac Type Severity Reaction Status Date / Time adhesive tape Allergy Rash/Hives Verified 09/24/20 14:00 Review of Systems ROS Statement: Those systems with pertinent positive or pertinent negative responses have been documented in the HPI. ROS Other: All systems not noted in ROS Statement are negative. Past Medical History Past Medical History: CVA/TIA, Hyperlipidemia, Hypertension, Osteoarthritis (OA) Additional Past Medical History / Comment(s): tia, alcoholic, freq falls. past lt humeral/lt femur fx, kidney stone 40 plus years ago. at times tremors, irreg sleep pattern History of Any Multi-Drug Resistant Organisms: None Reported Past Surgical History: Hernia Repair, Joint Replacement, Orthopedic Surgery Additional Past Surgical History / Comment(s): SHOULDER LEFT 25 YEARS AGO, lt hip hemiarthroplasty Past Anesthesia/Blood Transfusion Reactions: No Reported Reaction Past Psychological History: Depression Smoking Status: Current every day smoker Past Alcohol Use History: Daily Past Drug Use History: None Reported - Past Family History Mother Family Medical History: Hypertension Father Additional Family Medical History / Comment(s): [facility] pt was 11 years old General Exam Limitations: no limitations General appearance: alert, in no apparent distress Head exam: Present: atraumatic, normocephalic, normal inspection Eye exam: Present: normal appearance, PERRL, EOMI. Absent: scleral icterus, conjunctival injection, periorbital swelling Neck exam: Present: normal inspection Respiratory exam: Present: normal lung sounds bilaterally. Absent: respiratory distress, wheezes, rales, rhonchi, stridor Cardiovascular Exam: Present: regular rate, normal rhythm, normal heart sounds. Absent: systolic murmur, diastolic murmur, rubs, gallop, clicks Left Knee exam: Present: normal inspection, full ROM, abrasion (Minimal over the knee). Absent: tenderness, swelling Neurological exam: Present: alert, oriented X3 Psychiatric exam: Present: normal affect, normal mood Skin exam: Present: warm, dry, intact, normal color. Absent: rash Course Vital Signs 09/24/20 12:17 Temperature 97.7 F Pulse Rate 54 L Respiratory 16 Rate Blood Pressure 122/80 O2 Sat by Pulse 95 Oximetry Medical Decision Making - Medical Decision Making 85-year-old male complaining of left knee pain after falling on it all being outside assisted living facility. Basic labs, x-ray left knee ordered. Labs unremarkable. X-ray shows cortical step-off at the patella. Case discussed with Dr. Bustillo, patient can discharge home with follow-up to orthopedist for potential computed tomography scan of the left knee. Knee immobilizer ordered. - Lab Data Result diagrams: 09/24/20 13:14 09/24/20 13:14 Lab Results 09/24/20 09/24/20 Range/Units 13:14 13:14 WBC 6.1 (3.8-10.6) k/uL RBC 3.95 L (4.30-5.90) m/uL Hgb 11.9 L (13.0-17.5) gm/dL Hct 34.7 L (39.0-53.0) % MCV 88.1 (80.0-100.0) fL MCH 30.3 (25.0-35.0) pg MCHC 34.4 (31.0-37.0) g/dL RDW 13.9 (11.5-15.5) % Plt Count 346 (150-450) k/uL MPV 7.6 Neutrophils % 74 % Lymphocytes % 14 % Monocytes % 7 % Eosinophils % 3 % Basophils % 1 % Neutrophils # 4.5 (1.3-7.7) k/uL Lymphocytes # 0.8 L (1.0-4.8) k/uL Monocytes # 0.4 (0-1.0) k/uL Eosinophils # 0.2 (0-0.7) k/uL Basophils # 0.0 (0-0.2) k/uL Sodium 138 (137-145) mmol/L Potassium 4.5 (3.5-5.1) mmol/L Chloride 107 (98-107) mmol/L Carbon Dioxide 27 (22-30) mmol/L Anion Gap 4 mmol/L BUN 18 (9-20) mg/dL Creatinine 1.06 (0.66-1.25) mg/dL Est GFR (CKD-EPI)AfAm 75 (>60 ml/min/1.73 sqM) Est GFR (CKD-EPI)NonAf 65 (>60 ml/min/1.73 sqM) Glucose 98 (74-99) mg/dL Calcium 9.3 (8.4-10.2) mg/dL Total Bilirubin 0.6 (0.2-1.3) mg/dL AST 22 (17-59) U/L ALT 9 (4-49) U/L Alkaline Phosphatase 39 (38-126) U/L Total Protein 6.1 L (6.3-8.2) g/dL Albumin 3.6 (3.5-5.0) g/dL - Radiology Data Radiology results: report reviewed, image reviewed Left knee x-ray: Slight cortical step-off involving the patella on the lateral view near the articular surface recommend computed tomography scan to fracture. Disposition Clinical Impression: Left knee pain, Patellar fracture Disposition: HOME SELF-CARE Condition: Stable Instructions (If sedation given, give patient instructions): Fall Prevention for Older Adults (ED) Additional Instructions: Please return to the Emergency Department if symptoms worsen or any other concerns. Follow-up primary care and orthopedist as soon as possible. Take Tylenol and/or Motrin as needed for pain control. Her knee immobilizer throughout the day. Is patient prescribed a controlled substance at d/c from ED?: No Referrals: Contreras Roberts DO [Primary Care Provider] - 1-2 days Roderick Manriquez DO [Doctor of Osteopathic Medicine] - 1-2 days Time of Disposition: 14:22
[2020-09-24 13:41] LABS: Albumin 3.6 g/dL (3.5-5.0); Calcium 9.3 mg/dL (8.4-10.2); Potassium 4.5 mmol/L (3.5-5.1); Total Bilirubin 0.6 mg/dL (0.2-1.3); Total Protein 6.1 g/dL (6.3-8.2)
[2020-09-24 14:47] VITALS: BP 115/70; PULSE 56; TEMP 97.9
== END 2020-09-24 14:47 | disposition home or self-care (01) ==
LOC: EC 12:12 → EEVIPCON 12:12 → EC 14:47
DX: S82.002A Unspecified fracture of left patella, initial encounter for closed fracture (principal); E78.5 Hyperlipidemia, unspecified; F17.200 Nicotine dependence, unspecified, uncomplicated; I10 Essential (primary) hypertension; I25.10 Atherosclerotic heart disease of native coronary artery without angina pectoris; F32.9 Major depressive disorder, single episode, unspecified; M19.90 Unspecified osteoarthritis, unspecified site; Z79.82 Long term (current) use of aspirin; Z87.442 Personal history of urinary calculi; Z86.73 Personal history of transient ischemic attack (TIA), and cerebral infarction without residual deficits; Z96.642 Presence of left artificial hip joint; W19.XXXA Unspecified fall, initial encounter
CPT/HCPCS: 99284 ×2; 36415; 80053; 85025; 73562; L1830

== ENCOUNTER 2021-01-17 09:13 | Inpatient (IN) | payer MEDICARE ==
--- NOTE | 2021-01-17 09:51 | ED ---
General Adult HPI - General Chief complaint: Weakness Stated complaint: AMS Time Seen by Provider: 01/17/21 09:16 Source: RN/MD, EMS Mode of arrival: EMS Limitations: no limitations - History of Present Illness Initial comments: Dictation was produced using [employer] dictation software. please excuse any grammatical, word or spelling errors. Chief Complaint: 85-year-old male transferred by EMS from assisted living facility for weakness History of Present Illness: 85-year-old male he lives at assisted living facility. He was allegedly was found sleeping on the toilet. Assisted living facility staff went to bring patient his morning medications when he was found sleeping on the toilet. Patient reports that he was too weak to get off the toilet go back into bed. Patient denies any pain complaints. Denies any nausea, vomiting. No abdominal pain or chest pain. Patient states he has a slight cough that is nonproductive. No obvious sick exposures. Denies any numbness and paresthesias to the arms or legs. The ROS documented in this emergency department record has been reviewed and confirmed by me. Those systems with pertinent positive or negative responses have been documented in the HPI. All other systems are other negative and/or noncontributory. PHYSICAL EXAM: General Impression: Alert and oriented x3, not in acute distress HEENT: Normocephalic atraumatic, extra-ocular movements intact, pupils equal and reactive to light bilaterally, mucous membranes moist. Cardiovascular: Heart regular rate and rhythm Chest: Able to complete full sentences, no retractions, no tachypnea Abdomen: abdomen soft, non-tender, non-distended, no organomegaly Musculoskeletal: Pulses present and equal in all extremities, no peripheral edema Motor: no focal deficits noted Neurological: CN II-XII grossly intact, no focal motor or sensory deficits noted Skin: Intact with no visualized rashes Psych: Normal affect and mood ED course: 85-year-old male transferred from assisted living facility for weakness. vital signs upon arrival are within acceptable limits. Patient reports it is a mild cough. Patient has no focal neurologic deficits. Doesn't appear to be in any acute distress. Laboratory evaluation obtained. Mild leukocytosis of 11.6. Coag panel is unremarkable. Metabolic panel shows 6.0 potassium with slight hemolysis. Mild gap acidosis. Elevated renal markers cranial 2.64 and a BUN of 68. Patient do es not have a history of kidney issues. Labs from 3 months ago shows normal creatinine. Rest of labs are within acceptable limits. Negative for influenza, coronavirus or RSV. Patient reevaluated at bedside 11:50 AM found to be in stable medical condition. He is resting comfortably. Patient given intravenous fluids he'll be admitted for acute kidney injury. Consultation to nephrology. EKG interpretation: Ventricular rate 90, normal sinus rhythm,. 160, QRS 80, QTC 474. No MO prolongation, no QTC prolongation, no ST or T-wave changes noted. EKG compared to 09/01/2020 showing no changes. Overall, this EKG is unremarkable - Related Data Home Medications Medication Instructions Recorded Confirmed Citalopram Hydrobromide [CeleXA] 30 mg PO DAILY 04/16/14 09/24/20 lisinopriL [Zestril] 10 mg PO DAILY 04/16/14 09/24/20 Multivitamins, Thera [Multivitamin 1 tab PO DAILY 05/06/18 09/24/20 (formulary)] Aspirin EC [Ecotrin Low Dose] 81 mg PO DAILY 03/18/20 09/24/20 Cyanocobalamin (Vitamin B-12) 1,000 mcg PO DAILY 03/18/20 09/24/20 [Vitamin B-12] Fenofibrate Nanocrystallized 145 mg PO HS 03/18/20 09/24/20 [Fenofibrate] Acetaminophen Tab [Tylenol] 500 - 1,000 mg PO Q8H PRN 09/01/20 09/24/20 Cholecalciferol [Vitamin D3 (25 25 mcg PO DAILY 09/01/20 09/24/20 Mcg = 1000 Iu)] Ibuprofen [Motrin] 800 mg PO DAILY PRN 09/24/20 09/24/20 Ipratropium-Albuterol Nebulize 3 ml INHALATION RT-BID 09/24/20 09/24/20 [Duoneb 0.5 mg-3 mg/3 ml Soln] Previous Rx's Medication Instructions Recorded Folic Acid 0.5 mg PO DAILY #30 tab 09/05/20 Thiamine [Vitamin B-1] 100 mg PO DAILY #30 tab 09/05/20 Allergies Allergy/AdvReac Type Severity Reaction Status Date / Time adhesive tape Allergy Rash/Hives Verified 09/24/20 14:00 Review of Systems ROS Statement: Those systems with pertinent positive or pertinent negative responses have been documented in the HPI. ROS Other: All systems not noted in ROS Statement are negative. Past Medical History Past Medical History: CVA/TIA, Hyperlipidemia, Hypertension, Osteoarthritis (OA) Additional Past Medical History / Comment(s): tia, alcoholic, freq falls. past lt humeral/lt femur fx, kidney stone 40 plus years ago. at times tremors, irreg sleep pattern History of Any Multi-Drug Resistant Organisms: None Reported Past Surgical History: Hernia Repair, Joint Replacement, Orthopedic Surgery Additional Past Surgical History / Comment(s): SHOULDER LEFT 25 YEARS AGO, lt hip hemiarthroplasty Past Anesthesia/Blood Transfusion Reactions: No Reported Reaction Past Psychological History: Depression Smoking Status: Current every day smoker Past Alcohol Use History: None Reported Past Drug Use History: None Reported - Past Family History Mother Family Medical History: Hypertension Father Additional Family Medical History / Comment(s): [facility] pt was 11 years old General Exam Limitations: no limitations Course Vital Signs 01/17/21 01/17/21 01/17/21 09:20 10:32 11:42 Temperature 96.9 F L Pulse Rate 94 98 98 Respiratory 18 18 18 Rate Blood Pressure 123/85 122/89 119/95 O2 Sat by Pulse 95 95 95 Oximetry Medical Decision Making - Lab Data Result diagrams: 01/17/21 10:10 01/17/21 10:10 Lab Results 01/17/21 01/17/21 01/17/21 Range/Units 10:10 10:10 10:10 WBC 11.6 H (3.8-10.6) k/uL RBC 4.42 (4.30-5.90) m/uL Hgb 12.8 L (13.0-17.5) gm/dL Hct 40.2 (39.0-53.0) % MCV 90.9 (80.0-100.0) fL MCH 29.0 (25.0-35.0) pg MCHC 31.9 (31.0-37.0) g/dL RDW 14.7 (11.5-15.5) % Plt Count 432 (150-450) k/uL MPV 8.4 Neutrophils % 84 % Lymphocytes % 6 % Monocytes % 8 % Eosinophils % 1 % Basophils % 0 % Neutrophils # 9.8 H (1.3-7.7) k/uL Lymphocytes # 0.7 L (1.0-4.8) k/uL Monocytes # 0.9 (0-1.0) k/uL Eosinophils # 0.1 (0-0.7) k/uL Basophils # 0.0 (0-0.2) k/uL PT 12.5 H (9.0-12.0) sec INR 1.2 H (<1.2) APTT 22.4 (22.0-30.0) sec Sodium 139 (137-145) mmol/L Potassium 6.0 H (3.5-5.1) mmol/L Chloride 102 (98-107) mmol/L Carbon Dioxide 20 L (22-30) mmol/L Anion Gap 17 mmol/L BUN 68 H (9-20) mg/dL Creatinine 3.64 H (0.66-1.25) mg/dL Est GFR (CKD-EPI)AfAm 17 (>60 ml/min/1.73 sqM) Est GFR (CKD-EPI)NonAf 14 (>60 ml/min/1.73 sqM) Glucose 107 H (74-99) mg/dL Calcium 10.4 H (8.4-10.2) mg/dL Magnesium 2.5 H (1.6-2.3) mg/dL Total Bilirubin 1.1 (0.2-1.3) mg/dL AST 167 H (17-59) U/L ALT 53 H (4-49) U/L Alkaline Phosphatase 38 (38-126) U/L Total Protein 8.3 H (6.3-8.2) g/dL Albumin 4.7 (3.5-5.0) g/dL Influenza Type A (PCR) (Not Detectd) Influenza Type B (PCR) (Not Detectd) RSV (PCR) (Not Detectd) SARS-CoV-2 (PCR) (Not Detectd) 01/17/21 Range/Units 10:10 WBC (3.8-10.6) k/uL RBC (4.30-5.90) m/uL Hgb (13.0-17.5) gm/dL Hct (39.0-53.0) % MCV (80.0-100.0) fL MCH (25.0-35.0) pg MCHC (31.0-37.0) g/dL RDW (11.5-15.5) % Plt Count (150-450) k/uL MPV Neutrophils % % Lymphocytes % % Monocytes % % Eosinophils % % Basophils % % Neutrophils # (1.3-7.7) k/uL Lymphocytes # (1.0-4.8) k/uL Monocytes # (0-1.0) k/uL Eosinophils # (0-0.7) k/uL Basophils # (0-0.2) k/uL PT (9.0-12.0) sec INR (<1.2) APTT (22.0-30.0) sec Sodium (137-145) mmol/L Potassium (3.5-5.1) mmol/L Chloride (98-107) mmol/L Carbon Dioxide (22-30) mmol/L Anion Gap mmol/L BUN (9-20) mg/dL Creatinine (0.66-1.25) mg/dL Est GFR (CKD-EPI)AfAm (>60 ml/min/1.73 sqM) Est GFR (CKD-EPI)NonAf (>60 ml/min/1.73 sqM) Glucose (74-99) mg/dL Calcium (8.4-10.2) mg/dL Magnesium (1.6-2.3) mg/dL Total Bilirubin (0.2-1.3) mg/dL AST (17-59) U/L ALT (4-49) U/L Alkaline Phosphatase (38-126) U/L Total Protein (6.3-8.2) g/dL Albumin (3.5-5.0) g/dL Influenza Type A (PCR) Not Detected (Not Detectd) Influenza Type B (PCR) Not Detected (Not Detectd) RSV (PCR) Not Detected (Not Detectd) SARS-CoV-2 (PCR) Not Detected (Not Detectd) Disposition Clinical Impression: Acute kidney injury Disposition: ADMITTED IP TO THIS [facility] Condition: Fair Referrals: Contreras Roberts DO [Primary Care Provider] - 1-2 days
[2021-01-17 10:22] LABS: Basophils % (A) 0 %; Eosinophils # (A) 0.1 k/uL (0-0.7); Eosinophils % (A) 1 %; HCT 40.2 % (39.0-53.0); HGB 12.8 gm/dL (13.0-17.5); Lymphocytes # (A) 0.7 k/uL (1.0-4.8); Lymphocytes % (A) 6 %; MCHC 31.9 g/dL (31.0-37.0); MCV 90.9 fL (80.0-100.0); Mean Platelet Volume 8.4; Monocytes # (A) 0.9 k/uL (0-1.0); Monocytes % (A) 8 %; Neutrophils # (A) 9.8 k/uL (1.3-7.7); Neutrophils % (A) 84 %; Platelet Count 432 k/uL (150-450); RBC 4.42 m/uL (4.30-5.90); RDW 14.7 % (11.5-15.5); WBC 11.6 k/uL (3.8-10.6)
[2021-01-17 10:33] LABS: INR 1.2 (<1.2); Partial Thromboplastin Time 22.4 sec (22.0-30.0); Prothrombin Time 12.5 sec (9.0-12.0)
[2021-01-17 10:49] LABS: Albumin 4.7 g/dL (3.5-5.0); Calcium 10.4 mg/dL (8.4-10.2); Total Bilirubin 1.1 mg/dL (0.2-1.3); Total Protein 8.3 g/dL (6.3-8.2)
[2021-01-17 11:01] LABS: Magnesium 2.5 mg/dL (1.6-2.3)
[2021-01-17] MEDS ORDERED: SODIUM CHLORIDE 0.9% 1,000 ML IV STA (11:46)
[2021-01-17] MEDS ORDERED: ONDANSETRON 4 MG/2 ML VIAL IVP PRN (11:49)
[2021-01-17] MEDS ORDERED: ACETAMINOPHEN TAB 325 MG TAB PO PRN (11:49)
[2021-01-17] MEDS ORDERED: NALOXONE 0.4 MG/ML 1 ML VIAL IV PRN (11:49)
[2021-01-17] MEDS: SODIUM CHLORIDE 0.9% 1,000 ML IV SCH ×2 (12:47→19:50)
[2021-01-17 13:32] LABS: Appearance,Urine Clear (Clear); Bacteria,Urine Rare /hpf; Bilirubin,Urine Negative (Negative); Blood,Urine Negative (Negative); Color,Urine Yellow; Glucose,Urine (UA) Negative (Negative); Ketones,Urine Trace (Negative); Leukocyte Esterase,Urine Trace (Negative); Mucus,Urine Rare /hpf; Nitrite,Urine Negative (Negative); PH, Urine 5.5 (5.0-8.0); Protein,Urine 1+ (Negative); RBC,Urine 4 /hpf (0-5); Specific Gravity,Urine 1.017 (1.001-1.035); Squamous Epithelial Cell,Urine <1 /hpf (0-4); Urobilinogen,Urine <2.0 mg/dL (<2.0); WBC,Urine 7 /hpf (0-5)
[2021-01-17 14:28] LABS: Potassium 5.5 mmol/L (3.5-5.1)
[2021-01-18 04:10] LABS: African American GFR (CKD) 22 (>60 ml/min/1.73 sqM); Anion Gap 13 mmol/L; Blood Urea Nitrogen 68 mg/dL (9-20); Carbon Dioxide 22 mmol/L (22-30); Chloride 105 mmol/L (98-107); Glucose 94 mg/dL (74-99); Non-African American GFR(CKD) 19 (>60 ml/min/1.73 sqM); Potassium 4.8 mmol/L (3.5-5.1); Sodium 140 mmol/L (137-145)
[2021-01-18] MEDS: SODIUM CHLORIDE 0.9% 1,000 ML IV SCH ×3 (05:52→19:52)
--- NOTE | 2021-01-18 15:41 | XR ---
EXAMINATION TYPE: XR chest 2V DATE OF EXAM: 01/18/2021 COMPARISON: Chest x-ray 09/01/2020 HISTORY: Cough TECHNIQUE: Frontal and lateral views of the chest are obtained. FINDINGS: There is probable calcified left hilar nodes, question some airspace disease in the right lower lobe. The cardiac silhouette size is within normal limits. There are overlying artifacts. The osseous structures are stable, old right-sided and left rib fractures are again noted, there may be chronic pleural reaction on the right. The aorta is dense. Right shoulder shows probable calcified te ndinous insertion on the humeral head, arthropathy with marginal spurring at the glenohumeral joint, areas chronic distal clavicular fracture change with postoperative changes in the proximal left humer us IMPRESSION: Correlate for possible pneumonia right lower lobe, there may be associated effusion
--- NOTE | 2021-01-18 16:46 | P.HPIM ---
History of Present Illness H&P Date: 01/18/21 Chief Complaint: Weak This is a 85-year-old patient who follows with Dr. Roberts. history of frequent falls. lives in an assisted living where he is normally helped with ca s medications. With the staff came in the morning the patient was found to be sleeping on the toilet seat. He said he was too tired to go back to his bed. Chronic stable medical conditions include COPD, possible normal pressure hydrocephalus, alcoholic myopathy, moderate cognitive impairment. Left claw hand. Patient stated his appetite is poor. He has a rather congested cough. Some shortness of breath. Bit tired. Review of systems: GEN.: Tired, decreased appetite EYES: None HEENT: None NECK: None RESPIRATORY: Short of breath cough congested CARDIOVASCULAR: None GASTROINTESTINAL: None GENITOURINARY: None MUSCULOSKELETAL: Generalized muscle weakness, left claw hand LYMPHATICS: None HEMATOLOGICAL: None PSYCHIATRY: None NEUROLOGICAL: Forgetful. Past medical history to include: COPD, depression, osteoarthritis, chronic alcohol dependence, cigarette smoking, hypertension, hyperlipidemia, irregular sleep pattern, NPH, Social history: Lives at [facility]. Long-standing history of alcohol intake and also smoking cigarettes. Has a walker Physical examination: VITAL SIGNS: 96.9, 94, 18, 123 with 85, 95% room air GENERAL: Resting in bed, tired. Bouts of coughing. Intermittent. Lethargic EYES: Pupils equal. Conjunctiva normal. HEENT: External appearance of nose and ears normal, oral cavity dry. NECK: JVD not raised; masses not palpable. HEART: First and second heart sounds are normal; no edema. LUNGS: Respiratory rate increased; decreased breath sound some crackles. ABDOMEN: Soft, nontender, liver spleen not palpable, no masses palpable. PSYCH: Able to answer simple questions. Knows the place. He thinks the year is 2000 MUSCULAR skeletal: Decreased muscle mass. Left claw hand NEUROLOGICAL: Cranial nerves grossly intact; no facial asymmetry, power and sensation grossly intact. LYMPHATICS: No lymph nodes palpable in the axilla and neck INVESTIGATIONS, reviewed in the clinical context: Sodium 140, potassium 4.8, BUN 68, creatinine 2.91 Admission labs: White count 11.6 hemoglobin 12.8 platelets 432 Sodium 139 potassium 6 BUN 68 creatinine 3.64 CPK 1566, 2292 UA positive for leukoesterase trace, bacteria 7 Influenza type A, type B, RSV, COVID 19 [PCR]: Not detected EKG tracing personally reviewed by me-normal sinus rhythm, rate 90/m Chest x-ray film personally reviewed by me-right basal infiltrate. Old right- sided and left-sided rib fractures noted. Previous labs: BUN 18 creatinine 1.06 Assessment and plan: -Right lower lobe pneumonia, suspect gram-negative organism IV ceftriaxone 2 g daily. Sputum for Gram stain and culture. Mucinex 600 mg 4 times a day -Acute metabolic encephalopathy-from pneumonia Follow clinically -Alcoholic myopathy PTOT. Fall precautions -Acute COPD exacerbation, in a current smoker DuoNeb, inhaled steroids and long-acting beta agonist. -Essential hypertension Hold Zestril. Follow blood pressure closely. -Acute kidney injury combination of ATN, prerenal. IV fluids. Follow renal function -Severe hyperkalemia secondary to acute kidney injury and Zestril Patient received Kayexalate. Renal diet. IV fluids. Follow renal function -Acute rhabdomyolysis in the setting of renal failure IV fluids. 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 [This was done in August] -Possible normal pressure hydrocephalus. Patient has declined further intervention in the past. IV ceftriaxone 2 g. Sputum for Gram stain. Mucinex. DuoNeb. Steroids. PTOT. IV fluids. Chopped diet. Follow labs. Fall precaution. Given the complexity and severity of patient's condition expect the patient to be in the hospital at least for 2 overnights Past Medical History Past Medical History: CVA/TIA, Hyperlipidemia, Hypertension, Osteoarthritis (OA) Additional Past Medical History / Comment(s): tia, alcoholic, freq falls. past lt humeral/lt femur fx, kidney stone 40 plus years ago. at times tremors, irreg sleep pattern History of Any Multi-Drug Resistant Organisms: None Reported Past Surgical History: Hernia Repair, Joint Replacement, Orthopedic Surgery Additional Past Surgical History / Comment(s): SHOULDER LEFT 25 YEARS AGO, lt hip hemiarthroplasty Past Anesthesia/Blood Transfusion Reactions: No Reported Reaction Past Psychological History: Depression Smoking Status: Current every day smoker Past Alcohol Use History: None Reported Past Drug Use History: None Reported - Past Family History Mother Family Medical History: Hypertension Father Additional Family Medical History / Comment(s): in [facility] pt was 11 years old Medications and Allergies Home Medications Medication Instructions Recorded Confirmed Type Citalopram Hydrobromide [CeleXA] 30 mg PO DAILY 04/16/14 01/17/21 History lisinopriL [Zestril] 10 mg PO DAILY 04/16/14 01/17/21 History Aspirin EC [Ecotrin Low Dose] 81 mg PO DAILY 03/18/20 01/17/21 History Fenofibrate Nanocrystallized 145 mg PO HS 03/18/20 01/17/21 History [Fenofibrate] Ipratropium-Albuterol Nebulize 3 ml INHALATION RT-QID PRN 09/24/20 01/17/21 History [Duoneb 0.5 mg-3 mg/3 ml Soln] Allergies Allergy/AdvReac Type Severity Reaction Status Date / Time adhesive tape Allergy Rash/Hives Verified 01/18/21 14:51 Physical Exam Vitals: Vital Signs Temp Pulse Resp BP Pulse Ox 01/18/21 07:00 97.8 F 64 16 119/88 94 L 01/18/21 04:00 95 18 108/75 96 01/18/21 02:00 94 18 94 L 01/18/21 00:00 98.4 F 97 18 120/79 95 01/17/21 21:58 98 18 95 01/17/21 19:50 98.7 F 105 H 18 133/88 92 L 01/17/21 17:00 95 18 131/80 95 01/17/21 16:00 92 133/95 95 01/17/21 15:00 95 18 130/92 95 01/17/21 14:00 95 18 142/93 95 01/17/21 13:00 95 18 142/93 95 01/17/21 12:00 98 18 95 01/17/21 11:42 98 18 119/95 95 Results CBC & Chem 7: 01/17/21 10:10 01/18/21 03:28 Labs: Abnormal Lab Results - Last 24 Hours (Table) 01/17/21 01/17/21 01/17/21 Range/Units 10:10 10:10 10:10 PT 12.5 H (9.0-12.0) sec INR 1.2 H (<1.2) Potassium 6.0 H (3.5-5.1) mmol/L Carbon Dioxide 20 L (22-30) mmol/L BUN 68 H (9-20) mg/dL Creatinine 3.64 H (0.66-1.25) mg/dL Glucose 107 H (74-99) mg/dL Calcium 10.4 H (8.4-10.2) mg/dL Magnesium 2.5 H (1.6-2.3) mg/dL AST 167 H (17-59) U/L ALT 53 H (4-49) U/L Creatine Kinase 1566 H* (55-170) U/L Total Protein 8.3 H (6.3-8.2) g/dL Urine Protein (Negative) Urine Ketones (Negative) Ur Leukocyte Esterase (Negative) Urine WBC (0-5) /hpf Urine Bacteria (None) /hpf Urine Mucus (None) /hpf 01/17/21 01/17/21 01/18/21 Range/Units 13:23 13:54 03:28 PT (9.0-12.0) sec INR (<1.2) Potassium 5.5 H (3.5-5.1) mmol/L Carbon Dioxide (22-30) mmol/L BUN 68 H (9-20) mg/dL Creatinine 2.91 H (0.66-1.25) mg/dL Glucose (74-99) mg/dL Calcium (8.4-10.2) mg/dL Magnesium (1.6-2.3) mg/dL AST (17-59) U/L ALT (4-49) U/L Creatine Kinase 2292 H* (55-170) U/L Total Protein (6.3-8.2) g/dL Urine Protein 1+ H (Negative) Urine Ketones Trace H (Negative) Ur Leukocyte Esterase Trace H (Negative) Urine WBC 7 H (0-5) /hpf Urine Bacteria Rare H (None) /hpf Urine Mucus Rare H (None) /hpf
[2021-01-18] MEDS: ASPIRIN 81 MG PO SCH (17:38)
[2021-01-18] MEDS: CITALOPRAM HYDROBROMIDE 10 MG TAB PO SCH (17:38)
[2021-01-18] MEDS: ENOXAPARIN 30 MG/0.3 ML SYRINGE SQ SCH (17:42)
[2021-01-18] MEDS: guaiFENesin 600 MG TABLET.ER PO SCH ×2 (17:42→19:51)
[2021-01-18] MEDS: FENOFIBRATE 160 MG TAB PO SCH (19:51)
[2021-01-18] MEDS: IPRATROPIUM-ALBUTEROL 3 ML NEB INHALATION SCH ×3 (20:08→23:30)
[2021-01-18] MEDS: BUDESONIDE 1 MG/2 ML NEBU INHALATION SCH (20:09)
[2021-01-18] MEDS: FORMOTEROL FUMARATE 20 MCG/2 ML NEBU INHALATION SCH (20:19)
[2021-01-19] MEDS: IPRATROPIUM-ALBUTEROL 3 ML NEB INHALATION SCH ×6 (03:30→23:51)
[2021-01-19] MEDS: SODIUM CHLORIDE 0.9% 1,000 ML IV SCH ×3 (03:43→17:18)
[2021-01-19 06:54] LABS: Basophils % (A) 0 %; Eosinophils # (A) 0.1 k/uL (0-0.7); Eosinophils % (A) 1 %; HCT 36.7 % (39.0-53.0); HGB 11.7 gm/dL (13.0-17.5); Lymphocytes % (A) 9 %; MCH 29.1 pg (25.0-35.0); MCHC 31.8 g/dL (31.0-37.0); MCV 91.7 fL (80.0-100.0); Mean Platelet Volume 8.6; Monocytes # (A) 0.7 k/uL (0-1.0); Monocytes % (A) 7 %; Neutrophils # (A) 9.1 k/uL (1.3-7.7); Neutrophils % (A) 82 %; Platelet Count 364 k/uL (150-450); WBC 11.1 k/uL (3.8-10.6)
[2021-01-19 07:00] LABS: Calcium 9.3 mg/dL (8.4-10.2); Potassium 5.5 mmol/L (3.5-5.1)
[2021-01-19] MEDS: FORMOTEROL FUMARATE 20 MCG/2 ML NEBU INHALATION SCH ×2 (09:07→18:58)
[2021-01-19] MEDS: CITALOPRAM HYDROBROMIDE 10 MG TAB PO SCH (09:14)
[2021-01-19] MEDS: ENOXAPARIN 30 MG/0.3 ML SYRINGE SQ SCH (09:15)
[2021-01-19] MEDS: ASPIRIN 81 MG PO SCH (09:15)
[2021-01-19] MEDS: BUDESONIDE 1 MG/2 ML NEBU INHALATION SCH ×2 (09:18→18:58)
[2021-01-19 11:26] VITALS: BMI 22.1
[2021-01-19] MEDS: guaiFENesin 600 MG TABLET.ER PO SCH ×4 (11:32→20:48)
[2021-01-19] MEDS ORDERED: SODIUM POLYSTYRENE SULFONATE 15 GM/60 ML BOTTLE PO STA (12:25)
--- NOTE | 2021-01-19 16:36 | P.PN ---
Progress Note - Text Progress Note Date: 01/19/21 Chief Complaint: Weak This is a 85-year-old patient who follows with Dr. Roberts. history of frequent falls. lives in an assisted living where he is normally helped with his medications. With the staff came in the morning the patient was found to be sleeping on the toilet seat. He said he was too tired to go back to his bed. Chronic stable medical conditions include COPD, possible normal pressure hydrocephalus, alcoholic myopathy, moderate cognitive impairment. Left claw hand. Patient stated his appetite is poor. He has a rather congested cough. Some shortness of breath. Bit tired. Admitted with pneumonia, COPD exacerbation, acute kidney injury, acute metabolic encephalopathy. 01/19/2021: Laying in bed. Tired. Bit more awake. Cough. Some shortness of breath. Breathing of sputum. Didn't eat any breakfast. 8 about 50% of his lunch. Spoke to patient's legal guardian Heaven. Updated. CODE STATUS is DO NOT RESUSCITATE. Review of systems: Was done for constitutional, cardiovascular, GI, pulmonary. relevant finding as above Active Medications Acetaminophen (Acetaminophen Tab 325 Mg Tab) 650 mg PO Q6HR PRN PRN Reason: Mild Pain or Fever > 100.5 Albuterol/Ipratropium (Ipratropium-Albuterol 3 Ml Neb) 3 ml INHALATION RT-Q4H [facility] Last Admin: 01/19/21 15:34 Dose: 3 ml Documented by: Aspirin (Aspirin 81 Mg) 81 mg PO DAILY [facility] Last Admin: 01/19/21 09:15 Dose: 81 mg Documented by: Budesonide (Budesonide 1 Mg/2 Ml Nebu) 1 mg INHALATION RT-BID [facility] Last Admin: 01/19/21 09:18 Dose: 1 mg Documented by: Citalopram Hydrobromide (Citalopram Hydrobromide 10 Mg Tab) 30 mg PO DAILY [facility] Last Admin: 01/19/21 09:14 Dose: 30 mg Documented by: Enoxaparin Sodium (Enoxaparin 30 Mg/0.3 Ml Syringe) 30 mg SQ DAILY [facility] Last Admin: 01/19/21 09:15 Dose: 30 mg Documented by: Fenofibrate (Fenofibrate 160 Mg Tab) 160 mg PO HS [facility] Last Admin: 01/18/21 19:51 Dose: 160 mg Documented by: Formoterol Fumarate (Formoterol Fumarate 20 Mcg/2 Ml Nebu) 20 mcg INHALATION RT-BID [facility] Last Admin: 01/19/21 09:07 Dose: 20 mcg Documented by: Guaifenesin (Guaifenesin 600 Mg Tablet.Er) 600 mg PO QID [facility] Last Admin: 01/19/21 13:57 Dose: 600 mg Documented by: Sodium Chloride (Saline 0.9%) 1,000 mls @ 130 mls/hr IV .Q7H42M [facility] Last Admin: 01/19/21 11:28 Dose: Not Given Documented by: Ceftriaxone Sodium 2 gm/ (Sodium Chloride) 50 mls @ 100 mls/hr IVPB Q24HR [facility] Last Admin: 01/19/21 09:15 Dose: 100 mls/hr Documented by: Naloxone HCl (Naloxone 0.4 Mg/Ml 1 Ml Vial) 0.2 mg IV Q2M PRN PRN Reason: Opioid Reversal Ondansetron HCl (Ondansetron 4 Mg/2 Ml Vial) 4 mg IVP Q8HR PRN PRN Reason: Nausea And Vomiting Past medical history to include: COPD, depression, osteoarthritis, chronic alcohol dependence, cigarette smoking, hypertension, hyperlipidemia, irregular sleep pattern, NPH, Social history: Lives at [facility]. Long-standing history of alcohol intake and also smoking cigarettes. Has a walker Physical examination: VITAL SIGNS: 97.6, 62, 16, 135/80, 95% on 2 L GENERAL: Laying in bed, tired, less lethargic today, decreased coughing EYES: Pupils equal. Conjunctiva normal. HEENT: External appearance of nose and ears normal, oral cavity dry. NECK: JVD not raised; masses not palpable. HEART: First and second heart sounds are normal; no edema. LUNGS: Respiratory rate increased; decreased breath sound some crackles. ABDOMEN: Soft, nontender, liver spleen not palpable, no masses palpable. PSYCH: Able tonsil simple questions, more awake today MUSCULAR skeletal: Decreased muscle mass. Left claw hand INVESTIGATIONS, reviewed in the clinical context: January 19: White count 9.1 hemoglobin 11.7 platelets 364 potassium 5.5 BUN 64 creatinine 1.38 Sodium 140, potassium 4.8, BUN 68, creatinine 2.91 Admission labs: White count 11.6 hemoglobin 12.8 platelets 432 Sodium 139 potassium 6 BUN 68 creatinine 3.64 CPK 1566, 2292 UA positive for leukoesterase trace, bacteria 7 Influenza type A, type B, RSV, COVID 19 [PCR]: Not detected EKG tracing personally reviewed by me-normal sinus rhythm, rate 90/m Chest x-ray film personally reviewed by me-right basal infiltrate. Old right- sided and left-sided rib fractures noted. Previous labs: BUN 18 creatinine 1.06 Assessment and plan: -Right lower lobe pneumonia, suspect gram-negative organism IV ceftriaxone 2 g daily. Sputum for Gram stain and culture. Mucinex 600 mg 4 times a day -Acute metabolic encephalopathy-from pneumonia: Improving Follow clinically -Alcoholic myopathy PTOT. Fall precautions -Acute COPD exacerbation, in a current smoker: Slow to respond DuoNeb, inhaled steroids and long-acting beta agonist. -Essential hypertension Hold Zestril. Follow blood pressure closely. -Acute kidney injury combination of ATN, prerenal.: Improving IV fluids. Follow renal function. Decrease IV fluids -Severe hyperkalemia secondary to acute kidney injury and Zestril: Slow to respond Patient received Kayexalate. Renal diet. IV fluids. Follow renal function. Repeat Kayexalate -Acute rhabdomyolysis in the setting of renal failure: Better IV fluids. 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 [This was done in August of 2020] -Possible normal pressure hydrocephalus. Patient has declined further intervention in the past. -DO NOT RESUSCITATE Continue IV ceftriaxone. IV fluids decreased. Continue breathing treatments. Spoke to the patient's legal guardian at length. Questions answered. Patient's course status is DO NOT RESUSCITATE.. Total time spent today about 40 minutes with over 25 minutes of discussion.
[2021-01-19] MEDS: methylPREDNISolone SOD SUCCI 40 MG/ML 1 ML VIAL IV SCH ×2 (17:17→23:18)
[2021-01-19] MEDS: FENOFIBRATE 160 MG TAB PO SCH (20:48)
[2021-01-20] MEDS: IPRATROPIUM-ALBUTEROL 3 ML NEB INHALATION SCH ×4 (03:50→15:07)
[2021-01-20 08:11] LABS: Calcium 9.2 mg/dL (8.4-10.2); Potassium 4.1 mmol/L (3.5-5.1)
[2021-01-20] MEDS: guaiFENesin 600 MG TABLET.ER PO SCH ×2 (08:22→14:37)
[2021-01-20] MEDS: methylPREDNISolone SOD SUCCI 40 MG/ML 1 ML VIAL IV SCH (08:22)
[2021-01-20] MEDS: CITALOPRAM HYDROBROMIDE 10 MG TAB PO SCH (08:22)
[2021-01-20] MEDS: ASPIRIN 81 MG PO SCH (08:22)
[2021-01-20] MEDS: ENOXAPARIN 30 MG/0.3 ML SYRINGE SQ SCH (08:23)
[2021-01-20] MEDS: SODIUM CHLORIDE 0.9% 1,000 ML IV SCH (08:26)
[2021-01-20] MEDS: FORMOTEROL FUMARATE 20 MCG/2 ML NEBU INHALATION SCH (08:49)
[2021-01-20] MEDS: BUDESONIDE 1 MG/2 ML NEBU INHALATION SCH (08:49)
[2021-01-20 09:42] VITALS: RESP 18
[2021-01-20] MEDS ORDERED: cloNIDine HCL 0.1 MG TAB PO STA (14:09)
--- NOTE | 2021-01-20 14:11 | P.DS ---
Providers Date of admission: 01/17/21 11:50 Expected date of discharge: 01/20/21 Attending physician: John Jaquez Primary care physician: Contreras Roberts [facility] Course: Chief Complaint: Weak This is a 85-year-old patient who follows with Dr. Roberts. history of frequent falls. lives in an assisted living where he is normally helped with his medications. With the staff came in the morning the patient was found to be sleeping on the toilet seat. He said he was too tired to go back to his bed. Chronic stable medical conditions include COPD, possible normal pressure hydrocephalus, alcoholic myopathy, moderate cognitive impairment. Left claw hand. Patient stated his appetite is poor. He has a rather congested cough. Some shortness of breath. Bit tired. Admitted with pneumonia, COPD exacerbation, acute kidney injury, acute metabolic encephalopathy. Given IV fluids. Creatinine improved from 2.91 down to 1.04. Hypokalemia corrected. Patient started to eat better. Patient advised against smoking. IV ceftriaxone for pneumonia. Spoke to patient's legal guardian Heaven. Updated. CODE STATUS is DO NOT RESUSCITATE. Today: Laying in bed. More awake. Decreased cough. Breathing better. Oral intake improved. Patient be going to the inpatient rehab. Change antibiotic to by mouth Ceftin. Prednisone taper. Start Symbicort. Continue DuoNeb. Given the complexity and severity of patient's condition expect the patient to be in the hospital at least for 2 overnights Past medical history to include: COPD, depression, osteoarthritis, chronic alcohol dependence, cigarette smoking, hypertension, hyperlipidemia, irregular sleep pattern, NPH, Social history: Lives at [facility] [place]. Long-standing history of alcohol intake and also smoking cigarettes. Has a walker Physical examination: VITAL SIGNS: 98.1, 95, 18, 162/98, 90% on 3 daughters GENERAL: Laying in bed, more awake, less tired EYES: Pupils equal. Conjunctiva normal. HEENT: External appearance of nose and ears normal, oral cavity dry. NECK: JVD not raised; masses not palpable. HEART: First and second heart sounds are normal; no edema. LUNGS: Respiratory rate increased; decreased breath sound some crackles. ABDOMEN: Soft, nontender, liver spleen not palpable, no masses palpable. PSYCH: Able to answer simple questions MUSCULAR skeletal: Decreased muscle mass. Left claw hand INVESTIGATIONS, reviewed in the clinical context: January 20: Potassium 4.1 BUN 41 creatinine 1.04 January 19: White count 9.1 hemoglobin 11.7 platelets 364 potassium 5.5 BUN 64 creatinine 1.38 Sodium 140, potassium 4.8, BUN 68, creatinine 2.91 Admission labs: White count 11.6 hemoglobin 12.8 platelets 432 Sodium 139 potassium 6 BUN 68 creatinine 3.64 CPK 1566, 2292 UA positive for leukoesterase trace, bacteria 7 Influenza type A, type B, RSV, COVID 19 [PCR]: Not detected EKG tracing personally reviewed by me-normal sinus rhythm, rate 90/m Chest x-ray film personally reviewed by me-right basal infiltrate. Old right- sided and left-sided rib fractures noted. Previous labs: BUN 18 creatinine 1.06 Assessment and plan: -Right lower lobe pneumonia, suspect gram-negative organism IV ceftriaxone 2 g daily. Ceftin 5 mg twice a day for 5 days -Acute metabolic encephalopathy-from pneumonia: Better Follow clinically -Alcoholic myopathy PTOT. Fall precautions -Acute COPD exacerbation, in a current smoker: Better DuoNeb, 4 times a day. Symbicort 160/4.5 one puff twice a day. Steroid taper -Essential hypertension DC Zestril because of hyperkalemia. Clonidine 0.1 mg twice a day -Acute kidney injury combination of ATN, prerenal.: Improving IV fluids. Follow renal function. Decrease IV fluids -Severe hyperkalemia secondary to acute kidney injury and Zestril: Slow to respo nd Patient received Kayexalate. Renal diet. IV fluids. Creatinine decreased from 2.91 down to 1.04 -Acute rhabdomyolysis in the setting of renal failure: Better IV fluids. 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 [This was done in August] -Possible normal pressure hydrocephalus. Patient has declined further intervention in the past. -DO NOT RESUSCITATE Disposition: [facility] on Patient Condition at Discharge: Fair Plan - Discharge Summary Discharge Rx Participant: No New Discharge Prescriptions: New Cefuroxime Axetil [Ceftin] 500 mg PO BID #10 tab Budesonide/Formoterol Fumarate [Symbicort 160-4.5 Mcg Inhaler] 1 puff INHALATION BID #10.2 gm predniSONE 10 mg PO DAILY #30 tab Continue lisinopriL [Zestril] 10 mg PO DAILY Citalopram Hydrobromide [CeleXA] 30 mg PO DAILY Fenofibrate Nanocrystallized [Fenofibrate] 145 mg PO HS Aspirin EC [Ecotrin Low Dose] 81 mg PO DAILY Changed Ipratropium-Albuterol Nebulize [Duoneb 0.5 mg-3 mg/3 ml Soln] 3 ml INHALATION RT-QID #0 Discharge Medication List Citalopram Hydrobromide [CeleXA] 30 mg PO DAILY 04/16/14 [History] lisinopriL [Zestril] 10 mg PO DAILY 04/16/14 [History] Aspirin EC [Ecotrin Low Dose] 81 mg PO DAILY 03/18/20 [History] Fenofibrate Nanocrystallized [Fenofibrate] 145 mg PO HS 03/18/20 [History] Budesonide/Formoterol Fumarate [Symbicort 160-4.5 Mcg Inhaler] 1 puff INHALATION BID #10.2 gm 01/20/21 [Rx] Cefuroxime Axetil [Ceftin] 500 mg PO BID #10 tab 01/20/21 [Rx] Ipratropium-Albuterol Nebulize [Duoneb 0.5 mg-3 mg/3 ml Soln] 3 ml INHALATION RT-QID #0 01/20/21 [Rx] predniSONE 10 mg PO DAILY #30 tab 01/20/21 [Rx] Follow up Appointment(s)/Referral(s): Contreras Roberts DO [Primary Care Provider] - 1-2 days Activity/Diet/Wound Care/Special Instructions: Medi
[2021-01-20 15:12] VITALS: BP 163/108; TEMP 97.8
[2021-01-20 15:21] VITALS: PULSE 65
== END 2021-01-20 17:08 | DRG 177 ==
LOC: EC 09:13 → 4SSUR 11:50 → 1SOBS 01-18 10:39
PROVIDERS: ADMIT Hospitalist; ATTEND Hospitalist
DX: J15.6 Pneumonia due to other Gram-negative bacteria (principal); G93.41 Metabolic encephalopathy; N17.0 Acute kidney failure with tubular necrosis; E87.2 Acidosis; F10.27 Alcohol dependence with alcohol-induced persisting dementia; G72.1 Alcoholic myopathy; J44.1 Chronic obstructive pulmonary disease with (acute) exacerbation; J44.0 Chronic obstructive pulmonary disease with (acute) lower respiratory infection; E78.5 Hyperlipidemia, unspecified; E87.5 Hyperkalemia; F17.210 Nicotine dependence, cigarettes, uncomplicated; F32.9 Major depressive disorder, single episode, unspecified; I10 Essential (primary) hypertension; M19.90 Unspecified osteoarthritis, unspecified site; Z66 Do not resuscitate; Z20.822 Contact with and (suspected) exposure to COVID-19; Z79.82 Long term (current) use of aspirin; Z79.899 Other long term (current) drug therapy; Z82.49 Family history of ischemic heart disease and other diseases of the circulatory system; Z86.73 Personal history of transient ischemic attack (TIA), and cerebral infarction without residual deficits; Z87.442 Personal history of urinary calculi; Z91.81 History of falling; Z71.6 Tobacco abuse counseling
CPT/HCPCS: 36415; 71046; 80048; 80053; 81001; 82550; 83735; 84132; 85025; 85610; 85730; 87636; 93005; 94640; 99285

== ENCOUNTER 2021-03-12 09:01 | Emergency (ER) | payer MEDICARE ==
[2021-03-12 09:20] VITALS: BP 112/79; PULSE 99; RESP 16; TEMP 97.6
[2021-03-12 10:11] LABS: Basophils % (A) 0 %; Eosinophils % (A) 0 %; HCT 37.5 % (39.0-53.0); HGB 12.1 gm/dL (13.0-17.5); Hypochromasia Slight; Lymphocytes # (A) 1.1 k/uL (1.0-4.8); Lymphocytes % (A) 13 %; MCH 28.4 pg (25.0-35.0); MCHC 32.3 g/dL (31.0-37.0); MCV 88.1 fL (80.0-100.0); Mean Platelet Volume 7.5; Monocytes # (A) 0.4 k/uL (0-1.0); Monocytes % (A) 5 %; Neutrophils # (A) 6.6 k/uL (1.3-7.7); Neutrophils % (A) 79 %; Platelet Count 684 k/uL (150-450); RBC 4.25 m/uL (4.30-5.90); RDW 14.5 % (11.5-15.5); WBC 8.4 k/uL (3.8-10.6)
--- NOTE | 2021-03-12 10:27 | XR ---
EXAMINATION TYPE: XR chest 2V DATE OF EXAM: 03/12/2021 COMPARISON: 01/18/2021 TECHNIQUE: PA and lateral views submitted. HISTORY: Cough FINDINGS: Hyperinflation. Diffuse osteopenia with postsurgical change involving the left humerus and evidence o f remote trauma involving the rib cage and clavicle. Diffuse interstitial pattern. Tiny bilateral eff usions. Atherosclerotic change aorta and degenerative change of the spine. IMPRESSION: 1. COPD, cardiomegaly correlate for venous congestion and mild CHF versus interstitial pneumonitis.
[2021-03-12 10:31] LABS: Albumin 3.5 g/dL (3.5-5.0); Calcium 10.6 mg/dL (8.4-10.2); Total Bilirubin 0.9 mg/dL (0.2-1.3); Total Protein 6.6 g/dL (6.3-8.2)
[2021-03-12 10:33] LABS: Potassium 5.1 mmol/L (3.5-5.1)
--- NOTE | 2021-03-12 11:29 | ED ---
General Adult HPI - General Chief complaint: Shortness of Breath Stated complaint: Poss Low O2 Time Seen by Provider: 03/12/21 09:13 Source: patient, RN notes reviewed Mode of arrival: EMS Limitations: no limitations - History of Present Illness Initial comments: 85-year-old sent over from alf for low pulse ox. Patient has no complaints himself is awake alert and oriented 1 which is his baseline. Patient states he has no chest pain or shortness breath no fevers or chills no cough. Patient's denies fevers chills no abdominal pain. Patient had negative COVID-19 test yesterday. - Related Data Home Medications Medication Instructions Recorded Confirmed Citalopram Hydrobromide [CeleXA] 30 mg PO DAILY@0800 04/16/14 03/12/21 Aspirin 81 mg PO DAILY@0800 03/12/21 03/12/21 Fenofibrate,Micronized 200 mg PO DAILY@0700 03/12/21 03/12/21 [Fenofibrate] Fluticasone/Vilanterol [Breo 1 puff INHALATION RT-DAILY 03/12/21 03/12/21 Ellipta 100-25 Mcg Inhaler] Ipratropium-Albuterol Nebulize 3 ml INHALATION RT-Q4H 03/12/21 03/12/21 [Duoneb 0.5 mg-3 mg/3 ml Soln] Multivitamins, Thera [Multivitamin 1 tab PO DAILY 03/12/21 03/12/21 (formulary)] Proheal 30 ml PO BID 03/12/21 03/12/21 cloNIDine HCL 0.1 mg PO BID@0800,1600 03/12/21 03/12/21 Allergies Allergy/AdvReac Type Severity Reaction Status Date / Time adhesive tape Allergy Rash/Hives Verified 03/12/21 10:31 Review of Systems ROS Statement: Those systems with pertinent positive or pertinent negative responses have been documented in the HPI. ROS Other: All systems not noted in ROS Statement are negative. Past Medical History Past Medical History: CVA/TIA, Hyperlipidemia, Hypertension, Osteoarthritis (OA) Additional Past Medical History / Comment(s): tia, alcoholic, freq falls. past lt humeral/lt femur fx, kidney stone 40 plus years ago. at times tremors, irreg sleep pattern History of Any Multi-Drug Resistant Organisms: None Reported Past Surgical History: Hernia Repair, Joint Replacement, Orthopedic Surgery Additional Past Surgical History / Comment(s): SHOULDER LEFT 25 YEARS AGO, lt hip hemiarthroplasty Past Anesthesia/Blood Transfusion Reactions: No Reported Reaction Past Psychological History: Depression Smoking Status: Current every day smoker Past Alcohol Use History: None Reported Past Drug Use History: None Reported - Past Family History Mother Family Medical History: Hypertension Father Additional Family Medical History / Comment(s): in [facility] when pt was 11 years old General Exam Limitations: no limitations General appearance: alert, in no apparent distress Head exam: Present: atraumatic, normocephalic, normal inspection Eye exam: Present: normal appearance, PERRL, EOMI. Absent: scleral icterus, conjunctival injection, periorbital swelling Respiratory exam: Present: normal lung sounds bilaterally. Absent: respiratory distress, wheezes, rales, rhonchi, stridor Cardiovascular Exam: Present: regular rate, normal rhythm, normal heart sounds. Absent: systolic murmur, diastolic murmur, rubs, gallop, clicks GI/Abdominal exam: Present: soft, normal bowel sounds. Absent: distended, tenderness, guarding, rebound, rigid Course Vital Signs 03/12/21 09:10 Temperature 97.6 F Pulse Rate 99 Respiratory 16 Rate Blood Pressure 112/79 O2 Sat by Pulse 98 Oximetry Medical Decision Making - Medical Decision Making Pulse ox is within normal limits, patient is not dyspneic x-ray shows more chronic changes with no definite acute findings. Patient's laboratory unremarkable EKG at baseline. - Lab Data Result diagrams: 03/12/21 09:47 03/12/21 09:47 Lab Results 03/12/21 03/12/21 03/12/21 Range/Units 09:47 09:47 09:47 WBC 8.4 (3.8-10.6) k/uL RBC 4.25 L (4.30-5.90) m/uL Hgb 12.1 L (13.0-17.5) gm/dL Hct 37.5 L (39.0-53.0) % MCV 88.1 (80.0-100.0) fL MCH 28.4 (25.0-35.0) pg MCHC 32.3 (31.0-37.0) g/dL RDW 14.5 (11.5-15.5) % Plt Count 684 H (150-450) k/uL MPV 7.5 Neutrophils % 79 % Lymphocytes % 13 % Monocytes % 5 % Eosinophils % 0 % Basophils % 0 % Neutrophils # 6.6 (1.3-7.7) k/uL Lymphocytes # 1.1 (1.0-4.8) k/uL Monocytes # 0.4 (0-1.0) k/uL Eosinophils # 0.0 (0-0.7) k/uL Basophils # 0.0 (0-0.2) k/uL Hypochromasia Slight Sodium 138 (137-145) mmol/L Potassium 5.1 (3.5-5.1) mmol/L Chloride 105 (98-107) mmol/L Carbon Dioxide 20 L (22-30) mmol/L Anion Gap 13 mmol/L BUN 48 H (9-20) mg/dL Creatinine 1.22 (0.66-1.25) mg/dL Est GFR (CKD-EPI)AfAm 63 (>60 ml/min/1.73 sqM) Est GFR (CKD-EPI)NonAf 54 (>60 ml/min/1.73 sqM) Glucose 97 (74-99) mg/dL Calcium 10.6 H (8.4-10.2) mg/dL Total Bilirubin 0.9 (0.2-1.3) mg/dL AST 77 H (17-59) U/L ALT 35 (4-49) U/L Alkaline Phosphatase 49 (38-126) U/L NT-Pro-B Natriuret Pep 2690 pg/mL Total Protein 6.6 (6.3-8.2) g/dL Albumin 3.5 (3.5-5.0) g/dL Disposition Clinical Impression: Chronic disease, Weakness Disposition: HOME SELF-CARE Condition: Stable Instructions (If sedation given, give patient instructions): Chronic Cough (ED) Additional Instructions: Please return to the Emergency Department if symptoms worsen or any other concerns. Is patient prescribed a controlled substance at d/c from ED?: No Referrals: Contreras Roberts DO [Primary Care Provider] - 1-2 days Time of Disposition: 11:29
== END 2021-03-12 12:31 | disposition home or self-care (01) ==
LOC: EC 09:01
DX: R53.1 Weakness (principal); E78.5 Hyperlipidemia, unspecified; I10 Essential (primary) hypertension; M19.90 Unspecified osteoarthritis, unspecified site; F32.A Depression, unspecified; F17.200 Nicotine dependence, unspecified, uncomplicated; Z79.82 Long term (current) use of aspirin; Z86.73 Personal history of transient ischemic attack (TIA), and cerebral infarction without residual deficits; Z87.442 Personal history of urinary calculi
CPT/HCPCS: 36415; 71046; 80053; 83880; 85025; 93005; 99285